=== PATIENT | female | born 1975 | race Caucasian/White ===

== ENCOUNTER 2017-07-20 18:51 | Emergency (ER) | payer BC, SELFPAY ==
[2017-07-20 20:17] VITALS: BP 150/104; PULSE 82; RESP 18; TEMP 36.4; O2SAT 100; BMI 32.9
--- NOTE | 2017-07-20 20:24 | XR_ITS ---
XR hand LT min 3V HISTORY: Posttraumatic pain ITS.REASON: PAIN ORDERING PHYSICIAN: Wojciech Garcia PATIENT AGE: 41 years COMPARISON: None FINDINGS: No obvious fracture or dislocation. No lytic or blastic change. There is normal mineralization.. The joint spaces are well-preserved. No significant degenerative/arthritic changes. No erosive changes evident.. Sesamoid bones are present at the first metacarpal phalangeal junction. An additional calcific density is present along the proximal and ulnar aspect of the head of the first metacarpal. Although this may be related to soft tissue calcification such as a sesamoid, one cannot exclude possibility avulsion fracture. Please correlate as to patient's area of pain and tenderness. Otherwise negative. IMPRESSION: Small calcific density at the distal shaft of the first metacarpal. Differential diagnosis includes soft tissue calcification versus small avulsion injury
--- NOTE | 2017-07-20 20:52 | HMH.EDUTC ---
[facility] [place] Impression: Pain of left thumb Disposition: Home, Self-Care Condition on Discharge: Good Instructions: How To Perform RICE (Rest, Ice, Compress, Elevate), DI for Wrist Fracture Additional Instructions: * Rest * ice 15-20 mins 3-4 times a day * brace for support and swelling unless in shower until final xray report rcvd. Be sure not too tight but not too loose either. * Elevate as discussed as much as possible to help reduce swelling and therefore, pain * Ibuprofen every 6 hours as needed for pain and inflammation. If you need something more, you can take tylenol every 4 hours as needed as long as your primary care provider has told you it is ok to take both. * FU with [facility] or primary care tomorrow for final xray result. If fractured or pain persist, you will need to see ortho. Your location of pain is concerning and needs additional follow up. Referrals: Doron Fine MD [Primary Care Provider] - (tomorrow for final xray result) Time of Disposition: 21:43 Medical Decision Making Vital Signs: 07/20/17 20:17 Temperature 97.5 F L Temperature Source Temporal Artery Scan Pulse Rate [Right] 82 Respiratory Rate 18 Blood Pressure [Right Arm] 150/104 Blood Pressure Mean [Right Arm] 119 Blood Pressure Source [Right Arm] Automatic Cuff Blood Pressure Position [Right Arm] Sitting 02 Sat by Pulse Oximetry 100 Oxygen Delivery Method Room Air Orders (Tests/Meds): ORDERS Category Date Time Status XR hand LT min 3V Stat Exams 07/20/17 20:24 Taken - Radiology Data #1 Image(s): Hand (left) Image Reviewed: Yes I reviewed the patient's radiology image, Yes I reviewed the patient's radiology image w/the ED provider My concern was for scaphoid fracture. Rvwd w/ VIANEY Weathers MD. No acute finding. - Malik Inquiry Pt receiving controlled substance: No [facility] [place] - General Stated complaint: AO [id number] @1900 INJURED LEFT THUMB Time Seen by Provider: 07/20/17 20:50 Mode of Arrival: Ambulatory Source of Information: Patient Limitations: No Limitations Description of Symptoms (Recalled from Triage Doc. by RN): INJURED LEFT HAND 2 WKS AGO, STATES REINJURED IT TODAY HEENT Symptoms (Recalled from RN notes): No Resp Symptoms (Recalled from RN notes): No Skin Symptoms (Recalled from RN notes): No MS Symptoms (Recalled from RN notes): Yes Functional Status (Recalled from RN notes): N - History of Present Illness Provider Complaint: c/o left thumb pain. Reports fell and caught self with left hand 2 weeks ago. Pain in thumb at that time but seemed to be improving. Hit hand on edge of table today and pain worse again. Denies N/T. Worse with movement of thumb. - Related Data Home Medications Medication Instructions Recorded Confirmed Oxycodone HCl [Roxicodone 5mg tab] 5 mg PO BID 07/20/17 07/20/17 Allergies Allergy/AdvReac Type Severity Reaction Status Date / Time No Known Drug Allergies Allergy Unknown Verified 07/20/17 20:22 - Worker's Comp Is this a Worker's Comp case?: No [facility] History I have reviewed the patient's past medical history: Yes (denies) Medical History: Denies:: Diabetes Mellitus Type 1, Diabetes Mellitus Type 2, Hypertension Laterality Cases: Right: Total Knee Replacement - *Social History Smoking Status: Never smoker Alcohol Intake: never - Psychiatric History Expresses thoughts of harming self/others: None Suicide Plan Description: No Plan ROS Obtained: Yes Systems reviewed as appropriate & no additional complaints - Constitutional Denies fever(s) - Musculoskeletal Reports other (see hpi) - Integumentary/Breasts Denies change in skin color, Denies lesions, Denies rash - Neurologic Reports other (see hpi) Physical Exam - General General appearance: alert, in no apparent distress - Respiratory Respiratory exam: Absent: respiratory distress - Cardiovascular Cardiovascular exam: Present: regular rate - Expanded Cardiovascular
== END 2017-07-20 21:47 | disposition home or self-care (01) ==
PROVIDERS: Emergency Provider Nurse Practitioner Family; PCP Family Medicine
DX: M79.642 Pain in left hand (principal); W01.0XXA Fall on same level from slipping, tripping and stumbling without subsequent striking against object, initial encounter
CPT/HCPCS: 73130; 99202; 99281; 99291

== ENCOUNTER → 2018-09-28 08:53 | Outpatient (CLI) | payer BC, SELFPAY ==
--- NOTE | 2018-09-28 08:59 | FL_ITS ---
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 The esophagus has an unremarkable appearance. Stomach and duodenum are also unremarkable. No ulcer or mass is evident. No evidence of hiatal hernia. Small bowel has an unremarkable appearance. No obstructing lesions masses or mucosal abnormalities. The terminal ileum is within normal limits. FLUOROSCOPY TIME : 2 minutes and 47 seconds. IMPRESSION: Negative upper GI Negative small bowel follow-through
--- NOTE | 2018-09-28 10:00 | US_ITS ---
US thyroid HISTORY: ITS.REASON: THYROMEGLY ORDERING PHYSICIAN: Renita Lucero MD PATIENT AGE: 42 years Comparison: None FINDINGS: The right lobe is 4.2 x 1.2 x 1.6 cm. There is a 3 x 2 mm hypoechoic nodule in the upper pole well-circumscribed. A 3 mm complex cystic lesion is present in the mid polar region. The left lobe is 4.3 x 1.3 x 1.6 cm. There is a 7 x 5 mm mixed nodule in the upper pole somewhat ill-defined. IMPRESSION: 1. Mildly enlarged thyroid gland. 2. Nonspecific bilateral nodules with low level of suspicion for malignancy. Consider 6 month follow-up to confirm stability
== END ==
PROVIDERS: PCP Family Medicine; Visit Provider Family Medicine
DX: R13.10 Dysphagia, unspecified (principal); E01.0 Iodine-deficiency related diffuse (endemic) goiter
CPT/HCPCS: 74245; 76536

== ENCOUNTER → 2018-10-11 10:02 | Outpatient (CLI) | payer BC, SELFPAY ==
--- NOTE | 2018-10-11 10:09 | FL_ITS ---
[place] barium swallow Ordering Physician: Trell Romero MD Patient Age: 42 years: Female HISTORY: ITS.REASON: dyspahgia Dysphagia superiorly at level oropharynx hypopharynx. hialitosis. Hoarseness. TECHNIQUE: Swallowing of barium observed in the lateral and into projection with the patient upright as well as subsequent right lateral decubitus view observed for reflux. Imaging performed by Dr. Fernandez with total fluoroscopy time 1.5 minute COMPARISON :The patient had a recent UGI which included views lower esophagus from 09/28/2018 FINDINGS Normal swallowing mechanism and reflex.. The hypopharynx appears satisfactory. No penetration or aspiration. There are some mild anterior marginal osteophytes most evident C6/7 and to lesser degree C5/6 with slightly indenting and impinge upon the posterior aspect of cervical esophagus and can contribute to some minor symptoms of dysphagia however the patient's symptoms seem to be superior to this. Thus these are of significance. There are some mild degenerative disc space narrowing at C 6/7 noted. Good strength and coordination of the swallowing reflex through the hypopharynx as well as through the cervical and thoracic esophagus. Symmetrical appearance of vallecula and piriform sinuses. No Zenker's diverticulum evident. No cervical esophagus web or lesion. The thoracic esophagus appears normal. Normal peristalsis. Smooth appearance. No hiatal hernia evident. No reflux or hiatal hernia demonstrated with Valsalva maneuver with the patient right decubitus position.. No evidence GE reflux evident-even with using sip test utilized IMPRESSION: 1. No significant findings to account for the patient's symptoms ... Today's Study basically within normal limits ... Normal pattern of swallowing at hypopharynx and cervical esophagus. No Zenker's diverticulum. No esophageal web nor cleft ... Only note minor anterior marginal osteophytes at C6/7 & lesser degree C5/6 which is very slightly indents the posterior aspect of the esophagus. Although these can yield this stage of symptoms these are minimal and I doubt correlate with the patient's current symptoms ... Thoracic esophagus unremarkable. No hiatal hernia no reflux evident 3.
== END ==
PROVIDERS: PCP Family Medicine; Visit Provider Otolaryngology
DX: R13.10 Dysphagia, unspecified (principal)
CPT/HCPCS: 74220

== ENCOUNTER → 2019-11-22 10:32 | Outpatient (POV) | payer BC, SELFPAY ==
[2019-11-22 10:58] VITALS: BP 150/98; PULSE 73; RESP 20; TEMP 36.8; O2SAT 98; BMI 33.4
--- NOTE | 2019-11-22 12:16 | HMH.PMCON ---
Assessment and Plan (1) Neck pain Current visit: Yes Status: Chronic Category: Medical Code(s): M54.2 - Cervicalgia (2) Degenerative joint disease of cervical spine Current visit: Yes Status: Chronic Qualifiers: Spinal osteoarthritis complication: with radiculopathy Qualified Code(s): M47.22 - Other spondylosis with radiculopathy, cervical region Category: Medical Code(s): M47.812 - Spondylosis without myelopathy or radiculopathy, cervical region - Assessment and plan all Dx Assessment and Plan for all problems:: We will order an MRI of her cervical spine to help determine pathology and plan of care. I will follow-up with her after this reassess her symptoms at that time she has been instructed to call the office if she has any issues prior to her next appointment. Dr. Lopez has reviewed this note and agrees with this plan of care. This note was dictated using voice recognition software and may contain errors or omissions HPI - Data of Consult Consult date: 11/22/19 Requesting Physician: Lori Andrade APRN Primary Care Provider: VANESSA Horta - Consult Narrative Reason for consult: Neck pain and knee pain History of present illness: Ms. Salmon is a 44 year old female who presents today for consultation in regards to her neck pain she is had it for quite some time however in the last 3 weeks is gotten much worse. She is having radiation down into her bilateral arms. She has numbness and tingling in her bilateral fingers. Patient does not have any MRI of her neck. Patient states that all movement increases pain will rest decreases her pain. She is on anti-inflammatories. Patient has failed medication changes along with stretching and therapy. CC: Lori Andrade APRN [facility] History I have reviewed the patient's past medical history: Yes Medical History: Denies:: Cancer, Diabetes Mellitus Type 1, Diabetes Mellitus Type 2, Hypertension, MRSA *Have you ever received a pneumonia vaccine?: No *Have you received a flu vaccine this season?: No Other Medical History: Reports: Arthritis Laterality Cases: Left: Arthroscopy Knee, Partial Knee Replacement Amputation: No Fractures: No - *Social History Smoking Status: Former smoker Alcohol Intake: never *Occupational Status:: employed Housing: house Household Members: other *Travel in the last 8 weeks: None Family Hx:: Other Review of Systems - Review of Systems ROS General: no recent weight change, no fever, no sleep disturbances Respiratory: no cough, no shortness of air, no recurring pulmonary infections Cardiovascular/Peripheral Vascular: No chest pain, No palpitations, no edema, no shortness of breath. Gastrointestinal: no new onset incontinence, normal bowel movements reported Genitourinary: no new onset incontinence Musculoskeletal: Neck pain arm pain Psychiatric: normal mood/ affect Neurological: [denies new onset weakness in extremities], [denies new onset balance issues] Meds Home Medications Medication Instructions Recorded Confirmed Type celecoxib 200 mg capsule 1 tab PO DAILY 30 Days #30 cap 10/07/18 11/22/19 History omeprazole 40 mg capsule,delayed 1 tab PO DAILY 30 Days #30 cap 10/07/18 11/22/19 History release Allergies Allergy/AdvReac Type Severity Reaction Status Date / Time No Known Drug Allergies Allergy Unknown Verified 11/22/19 10:56 Objective Vital signs: Temp Pulse Resp BP Pulse Ox 98.3 F 73 20 150/98 H 98 11/22/19 10:58 11/22/19 10:58 11/22/19 10:58 11/22/19 10:58 11/22/19 10:58 Narrative: Physical Exam General: Alert and oriented x3, no acute distress, pleasant and cooperative, [on room air] Lungs: Resps E/U, Symmetrical chest expansion, Eyes: PERRL Musculoskeletal: Flexion and extension of cervical spine somewhat guarded secondary to pain, deep tendon reflexes normal, strength in upper and lower extremities [5/5], slightly antalg
== END ==
PROVIDERS: PCP Physician Assistant; Visit Provider Clinical Nurse Specialist Family Health
DX: M47.22 Other spondylosis with radiculopathy, cervical region (principal)
CPT/HCPCS: 99202

== ENCOUNTER → 2019-11-25 14:43 | Outpatient (CLI) | payer BC, SELFPAY ==
--- NOTE | 2019-11-25 14:52 | MR_ITS ---
PROCEDURE: MR CERVICAL SPINE WO CON CLINICAL INDICATION: NECK PAIN Cough COMPARISON: No exams were available for comparison TECHNIQUE: Standard multiplanar multiecho sequences are performed without contrast. 3-D MIP and myelographic images are also rendered and reviewed FINDINGS: There is straightening of the cervical lordosis. This is nonspecific and may be due to patient positioning or muscle spasm. The craniocervical junction has an unremarkable appearance. C2-C3: Unremarkable. C3-C4: There is a small right paracentral/foraminal disc protrusion with mild right lateral recess narrowing with mild degenerative disc disease C4-C5: Degenerative disc disease with bulging disc and small right and left paracentral disc osteophyte complexes with bilateral lateral recess and foraminal narrowing C5-C6: Degenerative disc disease with mild bulging disc C6-C7: Degenerate disc disease with mild bulging disc C7-T1: Unremarkable. The sagittal images suggest a small right paracentral disc protrusions at T2-T3 and T3-T4 not imaged in the axial plane. IMPRESSION: 1. Mild multilevel cervical spondylosis with reversal of the cervical lordosis. Please see above for detailed description at each level. 2. C3-C4: There is a small right paracentral/foraminal disc protrusion with mild right lateral recess narrowing with mild degenerative disc disease 3. C4-C5: Degenerative disc disease with bulging disc and small right and left paracentral disc osteophyte complexes with bilateral lateral recess and foraminal narrowing Dictated by: Jeffery Hanson MD 11/26/2019 06:59 Electronically signed by Jeffery Hanson MD in [place] 11/26/2019 06:59
== END ==
PROVIDERS: PCP Physician Assistant; Visit Provider Clinical Nurse Specialist Family Health
DX: M54.2 Cervicalgia (principal)
CPT/HCPCS: 72141; 76376

== ENCOUNTER → 2020-01-30 11:56 | Outpatient (POV) | payer BC, SELFPAY ==
[2020-01-30 12:48] VITALS: BP 132/88; PULSE 85; RESP 18; O2SAT 98; BMI 33.6
--- NOTE | 2020-01-30 14:10 | HMH.PAINSOAP ---
[facility] Pain Management SOAP Note Subjective:: Patient is a 44-year-old white female who presents today for follow-up after MRI. She has been treated for neck pain with cervical radiculopathy symptoms. Patient is also complaining of multiple areas of pain today. She is complaining of low back pain with radiation into her bilateral lower extremities. He does say her pain is worse into her right side. She also complains of numbness and tingling into both legs. She says it is worse in the a.m. when she initially wakes. She is complaining of left elbow pain. Patient I discussed that we need to focus on specific areas of pain. She is reporting to have a history of fibromyalgia. She says that she hurts all over. Patient says that she does work a full-time job and has chronic pain throughout her entire body. At this time, she says her pain is worse in her low back area radiating into bilateral hips and her right groin. Patient says she has never had any type of injective therapy. She would like to discuss possible injections. Review of Systems General: No recent weight changes, no fever, no sleep disturbances Respiratory: No cough, no shortness of air, no recurring pulmonary infections Cardiovascular/peripheral vascular: No chest pain, no palpitations, no edema, no shortness of breath Gastrointestinal: No new onset incontinence, normal bowel movements reported Genitourinary: No new onset incontinence Musculoskeletal: Neck pain, bilateral arm pain with numbness and tingling, low back pain with radiation into bilateral hips and right groin. Psychiatric: Normal mood/affect Neurological: [Denies weakness in extremities], [denies balance issues] Objective:: Physical exam General: Alert and oriented x3, no acute distress, pleasant and cooperative, [on room air] Lungs: Respirations even and unlabored, symmetrical chest expansion Eyes: PERRL Musculoskeletal: Flexion and extension of cervical and lumbar spine somewhat guarded secondary to pain, deep tendon reflexes normal, strength in upper and lower extremities [5/5], [abnormal gait noted], positive SI compression test, positive Ledy's test, positive distraction test Neurological: Speech clear, 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 She was very vague in her symptoms today and was unable to focus on any specific area of pain. For now, we will schedule the patient for bilateral SI joint injections. She does have tenderness noted over bilateral SI joints as well as into her right hip and right groin. We will see her back in the clinic after her injection to reassess her symptoms. If she does not get relief, she may need to undergo a lumbar. Patient is reporting her pain to be worse in her low back area than in her neck at this time. The patient and I specifically discussed risk factors for COVID19. These risks include, but are not limited to age greater than 60, heart or lung disease, diabetes, immunosuppression, and travel. We also discussed NSAIDs may worsen COVID19 infection or symptoms. Patient should not use NSAIDs to treat COVID19 signs or symptoms. Patient was also informed that any type of corticosteroid of any form (oral or injection) will decrease the patient's immune system response and may increase the likelihood of COVID19 infection and symptoms. [facility] History I have reviewed the patient's past medical history: Yes Medical History: Denies:: Cancer, Diabetes Mellitus Type 1, Diabetes Mellitus Type 2, Hypertension, MRSA *Have you ever received a pneumonia vaccine?: Yes *Have you received a flu vaccine this season?: Yes Other Medical History: Reports: Arthritis Laterality Cases: Left: Arthroscopy Knee Amputation: No Fractures: No - *Social History Smoking Status: Former smoker Alcohol Intake: never *O
== END ==
PROVIDERS: PCP Family Medicine; Visit Provider Clinical Nurse Specialist Family Health
DX: M50.10 Cervical disc disorder with radiculopathy, unspecified cervical region (principal); M46.1 Sacroiliitis, not elsewhere classified
CPT/HCPCS: 99212

== ENCOUNTER 2020-02-13 09:04 | Outpatient (RCR) | payer BC, SELFPAY ==
--- NOTE | 2020-02-13 11:25 | HMH.PTOPEV ---
PT Outpatient Evaluation Rehab PT Outpatient Evaluation Start: 02/13/20 09:12 Freq: Status: Active Protocol: Document 02/13/20 11:13 SHERMAN (Rec: 02/13/20 11:25 PHORNE [id number]) Electronically Signed By Rodney Odonnell, PT 02/13/20 11:13 Outpatient Therapy Subjective History Subjective History Pt is 44 yowf who presents with c/o pain in neck, B arms, low back, and B LE x ~ 1 yr with insidious onset of symptoms. She reports pain is constant and unchanging, worse with activity, and aching to shooting in nature. 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 She had MRI performed which shows C3/4-C6/ 7 DDD with C4/5 disc bulge. She reports seeing a Layer Out and having multiple tests performed all negative. She has been diagnosed with fibromyalgia for several years. She has PMH of L partial knee arthroplasty. Chief Complaint Pain,Stiff Symptom Type Ache,Sharp,Tingling,Shooting Symptoms Relieved By Rest/Positioning,Heat, Prescription Meds Symptoms Aggravated By Physical Activity Prior Functional Limitations Sleeping,Recreation Activity, Walking Current Functional Limitations Sleeping,Recreation Activity, Walking Symptom Description Constant and Continuous Level of pain today (0-10) 5 Pain scale - at its worst (0-10) 10 Cervical Eval Palpation Cervical Muscles R Cervical Paraspinal,L Cervical Paraspinal,R Upper Trapezius,L Upper Trapezius Cervical/Thoracic Palpation Findings Tenderness Posture Head/C-Spine Posture Sitting Position Neutral Position Head/C-Spine Posture Standing Position Neutral Position Flexibility Deficits Upper Trapezius Muscle Length (R) Mild Tightness,(L) Mild Tightness Levaetor Scapulae Muscle Length (R) Mild Tightness,(L) Mild Tightness Passive Joint Mobility Cervical PIVM WNL: R OA L OA R AA L AA R C2/3 L C2/3
== END 2020-02-13 09:05 | disposition home or self-care (01) ==
LOC: PT 09:04
PROVIDERS: PCP Family Medicine; Visit Provider Clinical Nurse Specialist Family Health
DX: M54.2 Cervicalgia (principal); M54.5 Low back pain
CPT/HCPCS: 97110; 97163

== ENCOUNTER 2020-02-13 15:25 | Day surgery (SDC) | payer BC, SELFPAY ==
[2020-02-13 15:37] VITALS: BP 138/87; PULSE 79; RESP 18; TEMP 36.4; O2SAT 99; BMI 35.6
[2020-02-13 15:47] VITALS: BP 132/88; PULSE 85; RESP 18
[2020-02-13 15:48] VITALS: BP 132/88; PULSE 82; RESP 18; O2SAT 99
--- NOTE | 2020-02-13 15:51 | HMH.PMPROC ---
- Procedure Date: 02/13/20 Time: 15:51 Anesthesiologist:: Lori Andrade APRN Complications:: None Pre-procedure Diagnosis:: Sacroiliitis Post-procedure Diagnosis:: Same Indications for Procedure:: Patient is a pleasant 44-year-old white female presents today for bilateral SI joint injections. Patient has a positive Flori test SI joint compression test and Ledy's test bilaterally. She is rating her pain today a 5 out of 10. Patient also wants to discuss Lyrica. She is on gabapentin however she states that she would like to try Lyrica. We will start her on 75 mg 1 p.o. twice daily. Malik reviewed and appropriate. 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 Patient was taken to the procedure room. Patient was placed prone on the procedure table. The left hip was prepped using ChloraPrep as a cleansing solution. The skin and subcutaneous tissues were anesthetized using lidocaine. Using fluoroscopic guidance I placed a 22-gauge spinal needle into the inferior aspect of the left SI joint. After this I injected 5 mL bupivacaine 0.25% and Depo-Medrol 40 mg into the left SI joint. The patient tolerated the procedure well with no complication. It was then repeated on the right side Plan and Disposition:: Follow-up with the patient 2 to 3 weeks reassess her symptoms at that time we will start her on Lyrica 75 mg 1 p.o. twice daily she knows that she needs to be off of her gabapentin if she is only taking this. She has been instructed to call the office if she has any issues prior to her next appointment. Dr. Lopez has reviewed this note and agrees with this plan of care. This note was dictated using voice recognition software and may contain errors or omissions
[2020-02-13 15:58] VITALS: BP 135/89; PULSE 79; RESP 20; O2SAT 99
== END 2020-02-13 16:00 | disposition home or self-care (01) ==
LOC: SC.PAINP 15:26
PROVIDERS: PCP Family Medicine; Visit Provider Clinical Nurse Specialist Family Health
DX: M46.1 Sacroiliitis, not elsewhere classified (principal); Z87.19 Personal history of other diseases of the digestive system; Z87.39 Personal history of other diseases of the musculoskeletal system and connective tissue; Z79.899 Other long term (current) drug therapy
CPT/HCPCS: 27096; G0260; J1030; Q9966

== ENCOUNTER 2020-03-05 16:03 | Emergency (ER) | payer BC, SELFPAY ==
[2020-03-05 16:23] VITALS: BP 128/73; PULSE 85; RESP 20; TEMP 36.7; O2SAT 98; BMI 35.6
[2020-03-05 16:24] VITALS: BP 124/74; PULSE 80; RESP 19; TEMP 36.7; O2SAT 99; BMI 35.6
--- NOTE | 2020-03-05 16:43 | HMH.EDUTC ---
[facility] Disposition Clinical Impression: Sciatica Qualifiers: Laterality: right Qualified Code(s): M54.31 - Sciatica, right side Right knee pain Qualifiers: Chronicity: acute Qualified Code(s): M25.561 - Pain in right knee Disposition: Home, Self-Care Condition on Discharge: Good Instructions: DI for Back Pain With Sciatica, DI for Knee Pain Additional Instructions: Go home and rest. It would be best if you rested tomorrow too. No heavy lifting. No twisting. Take the oral medications as directed. The muscle relaxer (robaxin) will make you drowsy, so don't drive or operate heavy machinery after taking it. Don't start the oral steroids (medrol dose pack) until tomorrow, since you had the shots in here today. Follow up with your regular doctor. GO TO THE ER FOR ANY WORSENING SYMPTOMS OR CONCERN, ESPECIALLY BOWEL OR BLADDER ISSUES, SADDLE AREA NUMBNESS, FEVER, ETC Prescriptions: methylPREDNISolone [Medrol] 4 mg PO DIRECTED 6 Days #21 tab.ds.pk Transmission Status: Received by [facility] Methocarbamol [Robaxin 500mg Tab] 500 mg PO BIDP PRN #30 tab PRN Reason: Muscle Spasm Transmission Status: Received by [facility] Referrals: Doron Fine MD [Primary Care Provider] - Forms: Work/School Release Time of Disposition: 17:04 Medical Decision Making - Medical Records Medical records reviewed: No: I reviewed the patient's medical records. - Malik Inquiry Pt receiving controlled substance: No Vital Signs: 03/05/20 16:23 03/05/20 16:24 03/05/20 17:08 Temperature 98.1 F 98.1 F 98.1 F Temperature Source Oral Oral Pulse Rate 85 Pulse Rate [Left Radial] 80 Pulse Rate [Right Brachial] 85 Respiratory Rate 20 19 20 Blood Pressure 128/73 Blood Pressure [Right Arm] 128/73 124/74 Blood Pressure Mean [Right Arm] 91 90 Blood Pressure Source [Right Arm] Automatic Cuff Automatic Cuff Blood Pressure Position [Right Arm] Sitting Sitting 02 Sat by Pulse Oximetry 98 99 Oxygen Delivery Method Room Air Room Air Orders (Tests/Meds): ED MEDICATIONS Discontinued Medications Generic Name Dose Route Start Last Admin Trade Name Freq PRN Reason Stop Dose Admin Methylprednisolone Sodium Succinate 125 mg 03/05/20 16:50 03/05/20 16:56 Solu-Medrol 125mg/2ml Vial IM 03/05/20 16:51 125 mg ONCE ONE Administration [facility] HPI - General Stated complaint: pain in knees Time Seen by Provider: 03/05/20 16:43 Mode of Arrival: Ambulatory Source of Information: Patient Limitations: No Limitations Description of Symptoms (Recalled from Triage Doc. by RN): c/o right hip pain that goes down to her feet. States that she see PM and was given SI a few weeks ago and her pain had improved but today she had to leave work because it was so painful. - History of Present Illness Provider Complaint: She c/o worsening right sided sciatica and right knee pain. She has a history of these issues, but for some unknown reason the pain has got worse over the past few days. - Related Data Home Medications Medication Instructions Recorded Confirmed celecoxib 200 mg capsule 1 tab PO DAILY 30 Days #30 cap 10/07/18 03/05/20 omeprazole 40 mg capsule,delayed 1 tab PO DAILY 30 Days #30 cap 10/07/18 03/05/20 release Duloxetine HCl 60 mg PO DAILY 02/13/20 03/05/20 Pregabalin [Lyrica 75mg Cap] 75 mg PO BID 03/05/20 03/05/20 Previous Rx's Medication Instructions Recorded Methocarbamol [Robaxin 500mg Tab] 500 mg PO BIDP PRN #30 tab 03/05/20 methylPREDNISolone [Medrol] 4 mg PO DIRECTED 6 Days #21 03/05/20 tab.ds.pk Allergies Allergy/AdvReac Type Severity Reaction Status Date / Time ibuprofen AdvReac Verified 03/05/20 16:35 - Worker's Comp Is this a Worker's Comp case?: No [facility] History - Hepatitis A Screen Drug use history?: No High risk sexual behaviors?: No History of sexually transmitted infection?: No Currently employed?: No Childcare worker?: N
[2020-03-05 17:08] VITALS: BP 128/73; PULSE 85; RESP 20; TEMP 36.7; O2SAT 98
== END 2020-03-05 17:10 | disposition home or self-care (01) ==
PROVIDERS: Emergency Provider Nurse Practitioner Family; PCP Family Medicine
DX: M54.31 Sciatica, right side (principal); M25.561 Pain in right knee; Z87.891 Personal history of nicotine dependence
CPT/HCPCS: 96372; 99201

== ENCOUNTER → 2020-04-05 09:44 | Outpatient (POV) | payer BC, SELFPAY ==
[2020-04-05 10:04] VITALS: BP 128/78; PULSE 71; RESP 18; O2SAT 98; BMI 35.4
--- NOTE | 2020-04-05 10:24 | HMH.PAINSOAP ---
[facility] Pain Management SOAP Note Subjective:: Patient is a 44-year-old white female who presents today for follow-up. Patient is complaining of severe right hip pain as well as right knee pain. She says that she has a torn meniscus. Patient says that she did undergo an SI injection on the left side that did give her relief, however, she says she got no relief on the right side. Patient is seeing an orthopedic surgeon in [place]. She says that she is scheduled to undergo injective therapy to her right knee before undergoing surgical intervention. Patient says that she is here today because her pain is severe. She does rate her pain an 8 out of 10. Patient says she works 12-hour shifts at and says she is unable to tolerate the pain. She is currently on Celebrex. She is asking for hydrocodone today. Review of Systems General: No recent weight changes, no fever, no sleep disturbances Respiratory: No cough, no shortness of air, no recurring pulmonary infections Cardiovascular/peripheral vascular: No chest pain, no palpitations, no edema, no shortness of breath Gastrointestinal: No new onset incontinence, normal bowel movements reported Genitourinary: No new onset incontinence Musculoskeletal: Right hip pain, right knee pain Psychiatric: Normal mood/affect Neurological: [Denies weakness in extremities], [denies balance issues] Objective:: Physical exam General: Alert and oriented x3, no acute distress, pleasant and cooperative, [on room air] Lungs: Respirations even and unlabored, symmetrical chest expansion Eyes: PERRL Musculoskeletal: Flexion and extension of lumbar spine somewhat guarded secondary to pain, deep tendon reflexes normal, strength in upper and lower extremities [5/5], [abnormal gait noted] Neurological: Speech clear, outpatient physical therapist equal, no gross sensory deficit Assessment:: Right hip pain, right knee pain Plan:: Patient understands that we will not be able to manage her long-term with oral medications since she is being treated for the same thing at the orthopedic surgeon's office. We can give her some medication until she is able to get in with her orthopedic surgeon. We will give her tramadol 50 mg 1 tablet p.o. 3 times daily for 5 days. We will also give her Flexeril which she has taken before at 5 mg 1 tablet p.o. 3 times daily for 5 days. We will not give the patient any further medication, as she is receiving injections in [place]. We will follow-up with the patient after she has seen her orthopedic surgeon in 2 weeks to reevaluate her pain. The patient and I specifically discussed risk factors for COVID19. These risks include, but are not limited to age greater than 60, heart or lung disease, diabetes, immunosuppression, and travel. We also discussed NSAIDs may worsen COVID19 infection or symptoms. Patient should not use NSAIDs to treat COVID19 signs or symptoms. Patient was also informed that any type of corticosteroid of any form (oral or injection) will decrease the patient's immune system response and may increase the likelihood of COVID19 infection [address] symptoms[address]. Lopez has reviewed this note and agrees with this plan of care. This note was dictated using voice recognition software and make contain errors or omissions. [facility] History I have reviewed the patient's past medical history: Yes Medical History: Denies:: Cancer, Diabetes Mellitus Type 1, Diabetes Mellitus Type 2, Hypertension, MRSA, Seizures *Have you ever received a pneumonia vaccine?: Yes *Have you received a flu vaccine this season?: Yes Other Medical History: Reports: Arthritis Laterality Cases: Left: Arthroscopy Knee Other Surgeries: Yes: No Previous Surgery Amputation: No Fractures: No - *Social History Smoking Status: Former smoker Alcohol Intake: never *Occupational Status:: other Housing: house Household Members: other *Travel in the last 8 weeks: None Family Hx:: Other
== END ==
PROVIDERS: PCP Family Medicine; Visit Provider Clinical Nurse Specialist Family Health
DX: M25.551 Pain in right hip (principal); M25.561 Pain in right knee
CPT/HCPCS: 99212

== ENCOUNTER 2020-05-01 16:48 | Emergency (ER) | payer BC, SELFPAY ==
[2020-05-01 16:49] VITALS: BP 143/103; PULSE 89; RESP 14; O2SAT 98; BMI 35.4
--- NOTE | 2020-05-01 17:11 | XR_ITS ---
PROCEDURE: XR KNEE RT 3V CLINICAL INDICATION: knee pain, no injury COMPARISON: CR [id number] KNEE-3 VIEWS-LT from 05/15/2015 FINDINGS: No fracture or dislocation. No lytic or blastic change. There is normal mineralization. There are mild osteoarthritic changes involving all 3 compartments. Increased density is present in the suprapatellar region consistent with knee joint effusion. Other findings:Small calcific density is present medial to the medial joint space IMPRESSION: Osteoarthritis with knee joint effusion Dictated by: Jeffery Hanson MD 05/02/2020 05:32 Jeffery Hanson MD in [place] 05/02/2020 05:32
--- NOTE | 2020-05-01 17:42 | HMH.EDUTC ---
[facility] [place] Dis[place] Clinical Impression: Right knee pain Qualifiers: Chronicity: acute Qualified Code(s): M25.561 - Pain in right knee Disposition: Home, Self-Care Condition on Discharge: Good Instructions: How to Use Crutches, DI for Knee Pain, How to Use a Knee Immobilizer Additional Instructions: Rest the extremity, Elevate the extremity as tolerated while you are resting. Use the crutches and Follow up with your orthopedic doctor. Follow up with your regular doctor. GO TO THE ER FOR ANY WORSENING SYMPTOMS Prescriptions: methylPREDNISolone [Medrol] 4 mg PO DIRECTED 6 Days #21 tab.ds.pk Transmission Status: Received by [facility] Referrals: Doron Fine MD [Primary Care Provider] - Forms: Work/School Release Time of Disposition: 18:04 Medical Decision Making - Medical Records Medical records reviewed: No: I reviewed the patient's medical records. - Malik Inquiry Pt receiving controlled substance: No Vital Signs: 05/01/20 16:49 05/01/20 18:21 Temperature 0 F L Pulse Rate 89 Pulse Rate [Left Radial] 89 Respiratory Rate 14 14 Blood Pressure 143/101 H Blood Pressure [Right Arm] 143/103 H Blood Pressure Mean [Right Arm] 116 Blood Pressure Source Automatic Cuff Blood Pressure Source [Right Arm] Automatic Cuff Blood Pressure Position Sitting Blood Pressure Position [Right Arm] Sitting 02 Sat by Pulse Oximetry 98 Oxygen Delivery Method Room Air Room Air Orders (Tests/Meds): ORDERS Category Date Time Status XR knee RT 3V Stat Exams 05/01/20 17:11 Taken - Radiology Data #1 Image(s): Knee Image Reviewed: Yes I reviewed the patient's radiology image Preliminary Findings: No Fracture Seen [facility] [place] HPI - General Stated complaint: Knee pain Time Seen by Provider: 05/01/20 17:42 Mode of Arrival: Ambulatory Source of Information: Patient Limitations: No Limitations Description of Symptoms (Recalled from Triage Doc. by RN): c/o right knee and is scheduled for surgery in Nov but has been unable to go to work the last 2 days due to the pain HEENT Symptoms (Recalled from RN notes): No Resp Symptoms (Recalled from RN notes): No Skin Symptoms (Recalled from RN notes): No MS Symptoms (Recalled from RN notes): Yes Functional Status (Recalled from RN notes): wnl - History of Present Illness Provider Complaint: She c/o worsening right knee pain. She has a history of right knee pain. She is followed by Dr. Mulligan in [facility] for this. She states that over the past 2 days her knee pain has worsened. She has an appointment with her ortho next week. - Related Data Home Medications Medication Instructions Recorded Confirmed celecoxib 200 mg capsule 1 tab PO DAILY 30 Days #30 cap 10/07/18 03/05/20 omeprazole 40 mg capsule,delayed 1 tab PO DAILY 30 Days #30 cap 10/07/18 03/05/20 release Duloxetine HCl 60 mg PO DAILY 02/13/20 03/05/20 Pregabalin [Lyrica 75mg Cap] 75 mg PO BID 03/05/20 03/05/20 Previous Rx's Medication Instructions Recorded Methocarbamol [Robaxin 500mg Tab] 500 mg PO BIDP PRN #30 tab 03/05/20 methylPREDNISolone [Medrol] 4 mg PO DIRECTED 6 Days #21 03/05/20 tab.ds.pk methylPREDNISolone [Medrol] 4 mg PO DIRECTED 6 Days #21 05/01/20 tab.ds.pk Allergies Allergy/AdvReac Type Severity Reaction Status Date / Time ibuprofen AdvReac Verified 03/05/20 16:35 - Worker's Comp Is this a Worker's Comp case?: No [facility] History - Hepatitis A Screen Drug use history?: No High risk sexual behaviors?: No History of sexually transmitted infection?: No Currently employed?: No Childcare worker?: No Do you have indoor plumbing?: Yes Do you have electricity?: Yes Attestation statement:: This patient has been screened for Hepatitis A risk factors. I have reviewed the patient's past medical history: Yes Medical History: Denies:: Cancer, Diabetes Mellitus Type 1, Diabetes Mellitus Type 2, Hypertension, MRSA, Seizures O
[2020-05-01 18:21] VITALS: BP 143/101; PULSE 89; RESP 14; TEMP -17.7; TEMP 0; O2SAT 98
== END 2020-05-01 18:23 | disposition home or self-care (01) ==
PROVIDERS: Emergency Provider Nurse Practitioner Family; PCP Family Medicine
DX: M25.561 Pain in right knee (principal); Z87.891 Personal history of nicotine dependence
CPT/HCPCS: 73562; 99201

== ENCOUNTER → 2020-08-16 15:32 | Outpatient (POV) | payer BC, SELFPAY ==
[2020-08-16 16:08] VITALS: BP 133/74; PULSE 71; RESP 18; TEMP 36.8; O2SAT 99; BMI 34.7
--- NOTE | 2020-08-16 16:51 | HMH.PAINSOAP ---
[facility] Pain Management SOAP Note Subjective:: Patient is a pleasant 44-year-old white female who presents today for follow-up. Patient has right SI joint pain. Patient has undergone SI joint injections in the past and had good relief with that up to 80% for over 3 months. Patient is interested in repeating this. Patient has a positive Flori test SI joint compression test Ledy's test and distraction test on the right side. Patient is also on Cymbalta, Lyrica, Celebrex. Patient states these medications are beneficial for her. [facility] #[id number] reviewed and appropriate. Patient would like to discuss increasing her Lyrica. ROS General: no recent weight change, no fever, no sleep disturbances Respiratory: no cough, no shortness of air, no recurring pulmonary infections Cardiovascular/Peripheral Vascular: No chest pain, No palpitations, no edema, no shortness of breath. Gastrointestinal: no new onset incontinence, normal bowel movements reported Genitourinary: no new onset incontinence Musculoskeletal: SI joint pain on the right side Psychiatric: normal mood/ affect Neurological: [denies new onset weakness in extremities], [denies new onset balance issues] Objective:: Physical Exam General: Alert and oriented x3, no acute distress, pleasant and cooperative, [on room air] Lungs: Resps E/U, Symmetrical chest expansion, Eyes: PERRL Musculoskeletal: Flexion and extension of lumbar spine somewhat guarded secondary to pain, deep tendon reflexes normal, strength in upper and lower extremities [5/5], [abnormal gait noted] Neurological: speech clear, delinquency counselor equal, no gross sensory deficits Assessment:: Sacroiliitis Plan:: We will set the patient up for right SI joint injection given the efficacy of this in the past I do believe it would benefit her will increase her Lyrica to 150 mg 1 p.o. twice daily. I will follow-up with her after her appointment reassess her symptoms at that time she has been instructed to call the office if she has any issues prior to her next appointment. Dr. Lopez has reviewed this note and agrees with this plan of care. This note was dictated using voice recognition software and may contain errors or omissions [facility] History I have reviewed the patient's past medical history: Yes Medical History: Denies:: Cancer, Diabetes Mellitus Type 1, Diabetes Mellitus Type 2, Hypertension, MRSA, Seizures *Have you ever received a pneumonia vaccine?: Yes *Have you received a flu vaccine this season?: Yes Other Medical History: Reports: Arthritis Laterality Cases: Left: Arthroscopy Knee Other Surgeries: Yes: No Previous Surgery Amputation: No Fractures: No - *Social History Smoking Status: Former smoker Alcohol Intake: never *Occupational Status:: other Housing: house Household Members: other *Travel in the last 8 weeks: None Family Hx:: Other
== END ==
PROVIDERS: PCP Family Medicine; Visit Provider Clinical Nurse Specialist Family Health
DX: M46.1 Sacroiliitis, not elsewhere classified (principal)
CPT/HCPCS: 99212; G0463

== ENCOUNTER 2020-10-18 16:00 | Outpatient (RCR) | payer BC, SELFPAY ==
--- NOTE | 2020-09-27 16:41 | HMH.PTOPEV ---
PT Outpatient Evaluation Rehab PT Outpatient Evaluation Start: 09/27/20 16:24 Freq: Status: Active Protocol: Document 09/27/20 16:26 TIPCLEMENT (Rec: 09/27/20 16:41 RAIN [id number]) Electronically Signed By Marcio Collier, PT 09/27/20 16:26 Outpatient Therapy Subjective History Subjective History Patient is a 44 year old female presenting to outpatient PT with reports of chronic R knee pain. Patient underwent R knee meniscectomy in 2017 and pain/stiffness has progressively gotten worse. Symptoms consistent with R knee OA and possible suprapatellar bursitis. No recent imaging to report indicates R knee OA and effusion. Comorbidities include fibromyalgia and OA. Chief Complaint Pain,Stiff,Weakness Symptom Type Burning Symptoms Relieved By Heat,Ice,Prescription Meds Prior Functional Limitations None Current Functional Limitations Housework,Sleeping,Standing, Sitting,Squatting,Recreation Activity,Walking,Stairs, Balance Symptom Description Constant but Variable Level of pain today (0-10) 2 Pain scale - at its best (0-10) 1 Pain scale - at its worst (0-10) 7 Hip/Knee Eval Gait Observation General Gait Pattern Observation Antalgic Gait,Decrease Weight Bear (R) Assistive Device Assistive Devices None / NA Palpation Tenderness right Knee Palpation Finding Tenderness Knee Palpation Overall Comment Medial joint line, suprapatellar bursa 3/4 MMT Hip Flexion Strength Grade 4 Good Hip Abduction Strength Grade 4 Good Hip Adduction Strength Grade 4 Good Hip Extension Strength Grade 4- Good- Hip External Rotation Strength Grade 3+ Fair+ Hip Internal Rotation Strength Grade 3+ Fair+ Knee Extension Strength Grade 4- Good- Knee Flexion Strength Grade 4- Good- ROM Hip ROM Reason Not Measured Within Functional Limits Knee Extension Active Range of Motion ( -5 degrees) Knee Extension Passive Range of Motion ( 0 degrees) Knee Flexion Active Range of Motion ( 122 degrees) Knee Flexion Passive Range of Motion ( 126 degrees) Special Tests Knee Anterior Kathie Test Negative Right Knee Pivot Shift Test Negative Right Knee Erika
== END 2020-10-18 16:05 | disposition home or self-care (01) ==
LOC: PT 16:00
PROVIDERS: PCP Family Medicine; Visit Provider Physician Assistant
DX: M25.561 Pain in right knee (principal)
CPT/HCPCS: 97010; 97014; 97033; 97110; 97163; G0283

== ENCOUNTER 2020-12-14 13:52 | Emergency (ER) | payer BC, SELFPAY ==
[2020-12-14 13:55] VITALS: BP 164/108; PULSE 73; RESP 20; TEMP 36.8; O2SAT 97; BMI 35.4
[2020-12-14 14:09] VITALS: BP 164/108; PULSE 73; RESP 20; TEMP 36.8; O2SAT 97
--- NOTE | 2020-12-14 14:10 | HMH.EDUTC ---
[facility] [place] Disposition Clinical Impression: Nausea Disposition: Home, Self-Care Condition on Discharge: Good Instructions: DI for Nausea -- Adult, Nausea and Vomiting-Adult Additional Instructions: Monitor temperature. Seek treatment if fever develops. Follow-up immediately if new or worse symptoms worsen or no noticeable improvement over 48 hours. Increase fluids such as water, Gatorade, Powerade, juice or Pedialyte with limited formula/dietary in children No food is okay as long as you are drinking. Once ready to eat start bland such as bananas, rice, applesauce, toast. Contagious until no diarrhea, vomiting, fever times 48 hours without medication Avoid antidiarrheals unless told otherwise. Best to let the virus run its course. Follow-up immediately for new or worsening symptoms or no noticeable improvement over the next 48 hours. Prescriptions: ondansetron HCL [Zofran 4mg Tab*] 4 mg PO TIDP PRN 3 Days #9 tab PRN Reason: Nausea Transmission Status: Pending to [id number] Referrals: Doron Fine MD [Primary Care Provider] - Time of Disposition: 14:18 Medical Decision Making - Malik Inquiry Pt receiving controlled substance: No Vital Signs: 12/14/20 13:55 Temperature 98.3 F Temperature Source Oral Pulse Rate [Right Brachial] 73 Respiratory Rate 20 Blood Pressure [Right Arm] 164/108 H Blood Pressure Mean [Right Arm] 126 Blood Pressure Source [Right Arm] Automatic Cuff Blood Pressure Position [Right Arm] Sitting 02 Sat by Pulse Oximetry 97 Oxygen Delivery Method Room Air [facility] [place] HPI - General Chief complaint: Urgent Treatment Center Stated complaint: stomach pain, nausea Time Seen by Provider: 12/14/20 14:10 Mode of Arrival: Ambulatory Source of Information: Patient Limitations: No Limitations Description of Symptoms (Recalled from Triage Doc. by RN): PATIENT C/O SEVERE EPIGASTRIC PAIN WITH NAUSEA SINCE THURSDAY. STATES SHE ATE RAW OYSTERS ON THURSDAY AND IS WORRIED SHE MAY HAVE FOOT POISONING. DENIES VOMITING, HAS HAD DIARRHEA X 2 HEENT Symptoms (Recalled from RN notes): No Resp Symptoms (Recalled from RN notes): No Skin Symptoms (Recalled from RN notes): No MS Symptoms (Recalled from RN notes): No Functional Status (Recalled from RN notes): WNL - History of Present Illness Provider Complaint: 45 yr old female presnets for epigastric pain,nausea and 2 stools since thursday. pt states last weekend she ate raw oysters and they tasted funny and now thinks she has food poisoning. pt states she has not vomited but did have vomit come into mouth but swollowed it. pt denies fever. pt states she had to miss work due to cramps and needs a note - Related Data Home Medications Medication Instructions Recorded Confirmed celecoxib 200 mg capsule 1 tab PO DAILY 30 Days #30 cap 10/07/18 03/05/20 omeprazole 40 mg capsule,delayed 1 tab PO DAILY 30 Days #30 cap 10/07/18 03/05/20 release Duloxetine HCl 60 mg PO DAILY 02/13/20 03/05/20 Pregabalin [Lyrica 75mg Cap] 75 mg PO BID 03/05/20 03/05/20 Previous Rx's Medication Instructions Recorded Methocarbamol [Robaxin 500mg Tab] 500 mg PO BIDP PRN #30 tab 03/05/20 methylPREDNISolone [Medrol] 4 mg PO DIRECTED 6 Days #21 03/05/20 tab.ds.pk methylPREDNISolone [Medrol] 4 mg PO DIRECTED 6 Days #21 05/01/20 tab.ds.pk Pregabalin [Lyrica 150mg Cap] 150 mg PO BID #60 cap 08/16/20 ondansetron HCL [Zofran 4mg Tab*] 4 mg PO TIDP PRN 3 Days #9 tab 12/14/20 Allergies Allergy/AdvReac Type Severity Reaction Status Date / Time ibuprofen AdvReac Verified 03/05/20 16:35 - Worker's Comp Is this a Worker's Comp case?: No [facility] History - Hepatitis A Screen Drug use history?: No High risk sexual behaviors?: No History of sexually transmitted infection?: No Currently employed?: No Childcare worker?: No Do you have indoor plumbing?: Yes Do you have electricity?: Yes Attestation statement:: This patient has been screened for Hepatitis A risk fa
== END 2020-12-14 14:34 | disposition home or self-care (01) ==
PROVIDERS: Emergency Provider Nurse Practitioner Family; PCP Family Medicine
DX: R11.0 Nausea (principal); R10.13 Epigastric pain; R19.7 Diarrhea, unspecified
CPT/HCPCS: 99202; G0463

== ENCOUNTER → 2021-03-04 15:37 | Outpatient (CLI) | payer BC, SELFPAY ==
--- NOTE | 2021-03-04 15:38 | US_ITS ---
PROCEDURE: US TRANSVAGINAL CLINICAL INDICATION: pelvic pain and heavy periods COMPARISON: No exams were available for comparison FINDINGS: UTERUS: 8cm x 6cmx 5cm with a combined endometrial thickness of 9.9mm LEFT OVARY: [id number] with a volume of 7.9ml. RIGHT OVARY: [id number] with a volume of 8.3ml. The uterus is retroverted with small nabothian cyst noted. There is a 1.4 cm area of heterogeneous echogenicity in the anterior body of the uterus suggesting a small fibroid. No dominant ovarian cyst. IMPRESSION: Retroverted uterus with small uterine fibroid Dictated by: Jeffery Hanson MD 03/04/2021 17:44 Jeffery Hanson MD in [place] 03/04/2021 17:44
== END ==
PROVIDERS: PCP Family Medicine; Visit Provider Nurse Practitioner Obstetrics & Gynecology
DX: R10.2 Pelvic and perineal pain (principal)
CPT/HCPCS: 76830

== ENCOUNTER → 2021-04-02 11:50 | Outpatient (CLI) | payer BC, SELFPAY | PROVIDERS: PCP Family Medicine; Visit Provider Nurse Practitioner | DX: Z20.822 Contact with and (suspected) exposure to COVID-19 (principal) | CPT/HCPCS: C9803; U0003; U0005 ==

== ENCOUNTER → 2021-04-05 17:35 | Outpatient (CLI) | payer BC, SELFPAY | PROVIDERS: PCP Family Medicine; Visit Provider Nurse Practitioner | DX: Z20.822 Contact with and (suspected) exposure to COVID-19 (principal) | CPT/HCPCS: C9803; U0003; U0005 ==

== ENCOUNTER → 2021-04-26 14:16 | Outpatient (CLI) | payer BC, SELFPAY ==
[2021-04-26 14:52] LABS: Basophils % 0.4 % (0.1-2.0); Eosinophils # 0.2 K/mm3 (0.0-0.4); Eosinophils % 4.6 % (0.1-12.0); Hematocrit 35.7 % (37.0-47.0); Hemoglobin 11.4 g/dL (12.2-16.2); Lymphocytes # 1.2 K/mm3 (0.7-4.5); Lymphocytes % 24.1 % (10-50); Mean Corpuscular HGB Conc 31.9 g/dL (31.8-35.4); Mean Corpuscular Hemoglobin 28.1 pg (27.0-31.2); Mean Corpuscular Volume 88.2 fl (81-99); Mean Platelet Volume 8.2 fl (7.4-10.4); Monocytes # 0.3 K/mm3 (0.1-1.0); Monocytes % 6.3 % (1.7-9.3); Neutrophils # 3.2 K/mm3 (1.8-7.8); Neutrophils % 64.6 % (37.0-80.0); Platelet Count 266 K/mm3 (142-424); Red Blood Count 4.04 M/mm3 (4.20-5.40); White Blood Count 4.9 K/mm3 (4.8-10.8)
[2021-04-26 15:21] LABS: Alanine Aminotransferase 25 U/L (12-78); Albumin Level 4.2 g/dl (3.5-5.0); Albumin/Globulin Ratio 1.3 (1.1-1.8); Alkaline Phosphatase 94 U/L (38-126); Anion Gap 11.1 mEq/L (5-15); Aspartate Amino Transferase 40 U/L (14-36); Bilirubin,Total 0.3 mg/dl (0.2-1.3); Blood Urea Nitrogen 17 mg/dl (7-17); Calcium 9.3 mg/dl (8.4-10.2); Carbon Dioxide 27 mmol/L (22.0-30.0); Chloride 106 mmol/L (98-107); Estimated Glomerular Filt Rate 133 ml/min (>60); GFR (African American) 161 ML/MIN (>60); Globulin 3.3 g/dL (1.3-3.2); Glucose 86 mg/dl (74-100); Potassium 4.1 mmoL/L (3.5-5.1); Sodium 140 mmol/L (136-145); Total Protein,Serum 7.5 g/dl (6.3-8.2)
[2021-04-26 15:27] LABS: C-Reactive Protein 6.6 mg/L (0-4)
[2021-04-26 15:37] LABS: 25-OH Vitamin D, Total 51.1 ng/mL (30-100)
[2021-04-26 16:08] LABS: Erythrocyte Sedimentation Rate 21 mm/hr (0-20)
[2021-04-28 09:08] LABS: RA Latex Turbid. <10.0 IU/mL (0.0-13.9)
[2021-04-29 22:05] LABS: Antinuclear Antibodies, IFA Positive (.)
[2021-04-30 01:07] LABS: Anti-Cyclic Citrullinated Pept 8 units (0-19)
== END ==
PROVIDERS: Visit Provider Physician Assistant
DX: R76.8 Other specified abnormal immunological findings in serum (principal); E66.9 Obesity, unspecified; Z68.36 Body mass index [BMI] 36.0-36.9, adult
CPT/HCPCS: 36415; 80053; 82306; 85025; 85651; 86038; 86140; 86200; 86431

== ENCOUNTER → 2021-05-01 12:47 | Outpatient (CLI) | payer BC, SELFPAY ==
[2021-05-01 12:52] LABS: Microscopic, Urine URINE MICROSCOPIC (MICROSCOPIC)
[2021-05-01 13:13] LABS: Appearance,Urine CLEAR (Clear); Bilirubin,Urine Negative (Negative); Blood, Urine 1+ (Negative); Color,Urine YELLOW (Yellow); Glucose,Urine (UA) Negative (Negative); Ketones,Urine Negative (Negative); Leukocyte Esterase,Urine Negative (Negative); Nitrate,Urine Negative (Negative); PH,Urine 5.5 (5.0-8.5); Protein,Urine Negative (Negative); Specific Gravity, Urine 1.015 (1.005-1.030); Urobilinogen,Urine 0.2 EU/dl (0.2)
[2021-05-01 13:32] LABS: Squamous Epithelial Cell,Urine Occasional #/hpf (0-5)
== END ==
PROVIDERS: Visit Provider Physician Assistant
DX: R76.8 Other specified abnormal immunological findings in serum (principal)
CPT/HCPCS: 81001

== ENCOUNTER → 2021-05-16 11:18 | Outpatient (CLI) | payer BC, SELFPAY ==
--- NOTE | 2021-05-16 11:31 | XR_ITS ---
PROCEDURE: XR CERVICAL SPINE W FLEX/EXT CLINICAL INDICATION: neck pain, lue numbness COMPARISON: No exams were available for comparison FINDINGS: There is normal alignment. There is slight reversal cervical lordosis at the C2-C3 level with straightening of the lordosis involving the remaining cervical spine. Multilevel degenerative disc disease is present from C2 to C7. There are small anterior osteophytes. Mild foraminal narrowing of the on the left at C3-C4 with moderate to severe foraminal narrowing on the right at C3-C4, C4-C5, and C5-C6. Flexion and extension views show no abnormal subluxation. No fracture or dislocation. No lytic or blastic change. No evidence of cervical rib IMPRESSION: Multilevel cervical spondylosis as detailed above. No abnormal subluxation in flexion or extension. Reversal cervical lordosis which could be due to patient positioning or muscle spasm. Dictated by: Jeffery Hanson MD 05/16/2021 12:13 Jeffery Hanson MD in [place] 05/16/2021 12:13
[2021-05-16 12:22] LABS: Creatine Kinase 78 U/L (30-135); Iron 42 ug/dL (37-170)
[2021-05-16 12:31] LABS: Total Iron Binding Capacity 402 ug/dL (265-497)
[2021-05-16 13:16] LABS: Thyroid Stimulating Hormone 1.11 uIU/mL (0.465-4.68)
[2021-05-16 13:21] LABS: Ferritin 9.99 ng/ml (6.24-137)
== END ==
PROVIDERS: Visit Provider Specialist
DX: M62.81 Muscle weakness (generalized) (principal); R20.0 Anesthesia of skin; R63.5 Abnormal weight gain; D64.9 Anemia, unspecified; E66.9 Obesity, unspecified; Z68.36 Body mass index [BMI] 36.0-36.9, adult
CPT/HCPCS: 36415; 72052; 82085; 82550; 82728; 83540; 83550; 84443

== ENCOUNTER → 2021-05-16 14:10 | Outpatient (POV) | payer BC, SELFPAY ==
[2021-05-16 14:26] VITALS: BP 147/94; PULSE 63; RESP 18; O2SAT 98; BMI 36.6
--- NOTE | 2021-05-16 14:42 | HMH.PAINSOAP ---
[facility] Pain Management SOAP Note Subjective:: Patient is a 45-year-old white female who presents today for follow-up. Patient has been seen and treated in our clinic for chronic bilateral sacroiliitis. She does undergo routine injective therapy to her bilateral SI joints and gets significant relief up to 5 to 6 months of relief at about 90 to 100%. Unfortunately, the patient reports her pain has returned to her bilateral low back area with radiation into bilateral buttock and hips. She does have pain with standing walking and improvement with sitting. She is having limitations at work due to the pain. She says that she does come home crying after standing for prolonged periods. She is also having severe neck pain with radicular pain into her arms and shoulders. She does have a history of fibromyalgia. We do manage the patient with Lyrica 150 mg 1 tablet p.o. twice daily. She is seeing Dr. Schulte who has sent the patient for an x-ray of her cervical spine as well as scheduled nerve conduction studies and MRI cervical spine. The patient would like to proceed with SI injections repeat in our clinic while awaiting MRI of her cervical spine. Patient has tried failed conservative therapies of physical therapy for more than 6 weeks in the past along with continued home stretching. She is also tried anti-inflammatories along with home stretching. She gets minimal relief. Ice and heat therapies have not been beneficial for the patient's pain. Review of Systems General: No recent weight changes, no fever, no sleep disturbances Respiratory: No cough, no shortness of air, no recurring pulmonary infections Cardiovascular/peripheral vascular: No chest pain, no palpitations, no edema, no shortness of breath Gastrointestinal: No new onset incontinence, normal bowel movements reported Genitourinary: No new onset incontinence Musculoskeletal: Neck pain with radiation into bilateral arms and shoulders, low back pain with radiation into bilateral buttock, hips and legs worse with standing walking. Improves with sitting. Psychiatric: [Normal mood/affect] Neurological: [Denies weakness in extremities], [denies balance issues] Objective:: Physical exam General: Alert and oriented x3, no acute distress, pleasant and cooperative Lungs: Respirations even and unlabored, symmetrical chest expansion Eyes: PERRL Musculoskeletal: Flexion and extension of lumbar [spine] somewhat guarded secondary to pain, [antalgic gait noted], positive Dayron's test, positive compression test, positive distraction test, positive Ledy's test Neurological: Speech clear, no gross sensory deficit Assessment:: Sacroiliitis bilateral, neck pain with cervical radiculopathy symptoms Plan:: Patient does have an MRI scheduled per Dr. Schulte for her cervical spine. She did have an x-ray that reports the patient to have degenerative disc disease with narrowing cervical spine. She is also scheduled for nerve conduction studies with Dr. Schulte. At this time, the patient is having low back pain with radiation into bilateral buttock hips and legs. The pain is improved with sitting and worsens with standing and walking. She is continue with home stretching and anti-inflammatories. Patient does have fibromyalgia and is managed with Lyrica 150 mg 1 tablet p.o. twice daily in our clinic. This does give the patient 60% relief of her fibromyalgia type pain. We will schedule her for bilateral SI joint injections for which she is got 90% relief for 5 to 6 months. She gets immediate relief following the injections. We will see the patient back after the injections for reevaluation of symptoms. Once the MRI is complete of her cervical spine we can proceed to treating her cervical spine pain. Risks and benefits of the medication have been explained in detail to the patient. If side effects do present with the medication, patient has been advised to stop the medication immediately and call
== END ==
PROVIDERS: Visit Provider Clinical Nurse Specialist Family Health
DX: M46.1 Sacroiliitis, not elsewhere classified (principal); M54.12 Radiculopathy, cervical region
CPT/HCPCS: 99212; G0463

== ENCOUNTER → 2021-05-24 15:13 | Outpatient (CLI) | payer BC, SELFPAY ==
--- NOTE | 2021-05-24 15:13 | MR_ITS ---
PROCEDURE INFORMATION: Exam: MR Cervical Spine Without Contrast Exam date and time: 05/24/2021 3:13 PM Age: 45 years old Clinical indication: Neck pain; Additional info: Neck pain, lue numbness. Neck pain lt arm numbness [id number]. No injury or trauma. Prior x-ray 05-16-21. Prior MR 11-25-19. TECHNIQUE: Imaging protocol: Multiplanar magnetic resonance images of the cervical spine without contrast. COMPARISON: MR CERVICAL SPINE WO CON 11/25/2019 3:01 PM FINDINGS: Alignment grossly normal. Signal intensity within the bone marrow normal. Spinal cord normal. Visualized portions of the brain in the posterior fossa is also normal. Straightening and reversal of the normal cervical lordosis. Degenerative disc disease C3-C4, C4-C5, C5-C6 and C6-C7 No marrow edema C2-C3: Central canal and neural foramina are widely patent. C3-C4: Broad-based annular disc bulge lateralizing to the right greater than left. Central canal is normal. Moderate narrowing of the right neural foramina and mild narrowing of the left neural foramina C4-C5: Disc and or osteophytic complex anteriorly mildly effaces the anterior aspect of the thecal sac. Disc, uncovertebral hypertrophic changes and facet arthropathy narrow the neural foramina severely so C5-C6: Disc and or osteophytic complex anteriorly mildly effaces the anterior aspect of the thecal sac. Disc, uncovertebral hypertrophic changes and facet arthropathy narrow the neural foramina moderately so right greater than left C6-C7: Broad-based annular disc bulge effaces the anterior aspect of the thecal sac mildly so. Central canal and right neural foramina are widely patent. Moderate narrowing of the left neural foramina C7-T1: Central canal and neural foramina are widely patent. IMPRESSION: Multilevel degenerative disc disease as described above.
== END ==
PROVIDERS: PCP Family Medicine; Visit Provider Specialist
DX: M54.2 Cervicalgia (principal); R20.0 Anesthesia of skin
CPT/HCPCS: 72141; 76376

== ENCOUNTER 2021-05-31 13:51 | Day surgery (SDC) | payer BC, SELFPAY ==
[2021-05-31 14:08] VITALS: BP 134/84; PULSE 78; RESP 18; TEMP 37; O2SAT 98; BMI 36.6
[2021-05-31 14:52] VITALS: BP 147/94; PULSE 71; RESP 18; O2SAT 97
[2021-05-31 14:54] VITALS: PULSE 71; RESP 18; O2SAT 98
--- NOTE | 2021-05-31 14:58 | HMH.PMPROC ---
- Procedure Date: 05/31/21 Time: 14:58 Anesthesiologist:: Mariama Kelly MD Complications:: None Pre-procedure Diagnosis:: Bilateral sacroiliitis, chronic low back pain, bilateral hip pain Post-procedure Diagnosis:: Same Indications for Procedure:: Patient is a very pleasant 45-year-old white female who presents today with chronic low back pain and bilateral hip pain related to the above diagnosis. She has tried and failed conservative treatment including oral pain medications and home stretching program for greater than 6 weeks. The plan for today is for the patient to undergo repeat bilateral SI joint injections under fluoroscopy. Procedure Details:: Informed consent was obtained and the risks and benefits of the procedure was explained to the patient. The patient was taken to the procedure room and placed prone on the procedure table. The patient was prepped using ChloraPrep. The skin and subcutaneous tissues overlying the SI joints were anesthetized using lidocaine. I placed a 22-gauge needle first in the left SI joint and second in the right SI joint. Needle placement was confirmed with dye. After this we injected 5 mL bupivacaine 0.25% and Depo-Medrol 40 mg into each SI joint. Patient tolerated the procedure well with no complication. Plan and Disposition:: We will follow-up with this patient in 2 weeks. Will reevaluate pain symptoms at that time.
[2021-05-31 15:06] VITALS: BP 142/94; PULSE 68; RESP 20; O2SAT 98
== END 2021-05-31 15:07 | disposition home or self-care (01) ==
LOC: SC.PAINP 13:53
PROVIDERS: PCP Family Medicine; Visit Provider Anesthesiology
DX: M46.1 Sacroiliitis, not elsewhere classified (principal); M54.50 Low back pain, unspecified; M25.551 Pain in right hip; M25.552 Pain in left hip; M50.30 Other cervical disc degeneration, unspecified cervical region
CPT/HCPCS: 27096; G0260; J1040

== ENCOUNTER 2021-06-26 12:46 | Emergency (ER) | payer BC, SELFPAY ==
[2021-06-26 13:40] VITALS: BP 131/95; PULSE 84; RESP 20; TEMP 36.9; O2SAT 98; BMI 32.3
--- NOTE | 2021-06-26 14:18 | HMH.EDUTC ---
[facility] Disposition Clinical Impression: URI (upper respiratory infection) Qualifiers: URI type: unspecified URI Qualified Code(s): J06.9 - Acute upper respiratory infection, unspecified Disposition: Home, Self-Care Condition on Discharge: Good Instructions: Sinusitis, Sore Throat, Cough, DI for Cough -- Adult Additional Instructions: ? Start antibiotic today. Be sure to complete entire prescription even if feeling better ? Monitor temp. Tylenol every 4 hours as needed and / or ibuprofen every 6 hours as needed ( As long as your primary care physician has told you that it ok to take both. For fever/aches/pains ER if no less than 101 despite Tylenol or Motrin ? Humidifier/vaporizer or hot steamy shower ? Inhaler every 4-6 hours as needed like we discussed. If unsure how to use it, ask pharmacist to demonstrate how. Should help open airways and improve cough, wheezing, and shortness of breath ? Mucinex for your cough Be sure to drink lots of water. *Start steroid today. Helps with inflammation therefore, cough and wheezing. Follow directions on the package. Reviewed side effects. Patient reports taking them before. Follow up IMMEDIATELY for new or worsening of symptoms OR no noticeable improvement over the next 48-72 hours. 911 immediately for any life threatening symptoms such as chest pain or difficulty breathing Prescriptions: guaiFENesin [Mucinex 600mg tablet] 1 - 2 tab PO Q12HP PRN #20 tab PRN Reason: Congestion Transmission Status: Pending to [facility] methylPREDNISolone [Medrol 4mg tab] 4 mg PO DIRECTED #21 tab Transmission Status: Pending to [facility] Azithromycin [Z-Mikey 250mg Tab] 250 mg PO DIRECTED #6 tab Transmission Status: Pending to [facility] Referrals: Doron Fine MD [Primary Care Provider] - As needed Forms: Work/School Release Time of Disposition: 14:31 Medical Decision Making - Malik Inquiry Pt receiving controlled substance: No Malik was queried for this patient: No Vital Signs: 06/26/21 13:40 Temperature 98.4 F Temperature Source Oral Pulse Rate [Right Brachial] 84 Respiratory Rate 20 Blood Pressure [Right Arm] 131/95 H Blood Pressure Mean [Right Arm] 107 Blood Pressure Source [Right Arm] Automatic Cuff Blood Pressure Position [Right Arm] Sitting 02 Sat by Pulse Oximetry 98 Oxygen Delivery Method Room Air - Lab Data Lab results reviewed: Yes: I reviewed the patient's lab results. Orders (Tests/Meds): ORDERS Category Date Time Status Covid-19 Nasal PCR ([facility]) Routine Lab 06/26/21 13:51 Received [facility] HPI - General Stated complaint: sore throat, pain, cough, soa, congestion Time Seen by Provider: 06/26/21 14:18 Mode of Arrival: Ambulatory Source of Information: Patient Limitations: No Limitations Description of Symptoms (Recalled from Triage Doc. by RN): PATIENT C/O SORE THROAT, PRODUCTIVE COUGH AND BODY ACHES SINCE YESTERDAY HEENT Symptoms (Recalled from RN notes): Yes Resp Symptoms (Recalled from RN notes): Yes Skin Symptoms (Recalled from RN notes): No MS Symptoms (Recalled from RN notes): No Functional Status (Recalled from RN notes): WNL - History of Present Illness Provider Complaint: Patient states that she has been feeling achy all over, sore throat, sinus congestion and drainage in the back of her throat and cough State that at times she will cough up some drainage but at times not States that she wanted to get checked for COVID and noticed yesterday that she loss her voice so she she was still feeling bad today she came in to get checked - Related Data Home Medications Medication Instructions Recorded Confirmed celecoxib 200 mg capsule 1 tab PO DAILY 30 Days #30 cap 10/07/18 06/04/21 omeprazole 40 mg capsule,delayed 1 tab PO DAILY 30 Days #30 cap 10/07/18 06/04/21 release duloxetine 60 mg capsule,delayed 60 mg PO DAILY cap 03/11/21 06/04/21 release tizanidine 2 mg capsule 4 mg PO HS
[2021-06-26 14:23] LABS: UTC Influenza A Antigen Negative (Negative)
[2021-06-26 14:24] LABS: UTC Strep Screen (Rapid) Negative (Negative)
[2021-06-26 14:24] LABS: UTC Influenza B Antigen Negative (Negative)
[2021-06-26 14:30] VITALS: BP 131/95; PULSE 84; RESP 20; TEMP 36.9; O2SAT 98
== END 2021-06-26 14:38 | disposition home or self-care (01) ==
PROVIDERS: Emergency Provider Nurse Practitioner; PCP Family Medicine
DX: J06.9 Acute upper respiratory infection, unspecified (principal); Z87.891 Personal history of nicotine dependence; Z20.822 Contact with and (suspected) exposure to COVID-19
CPT/HCPCS: 87804; 87880; 99203; C9803; G0463; U0003; U0005

== ENCOUNTER 2021-06-27 13:00 | Outpatient (RCR) | payer BC, SELFPAY ==
--- NOTE | 2021-06-19 11:25 | HMH.PTOPEV ---
PT Outpatient Evaluation Rehab PT Outpatient Evaluation Start: 06/19/21 10:31 Freq: Status: Active Protocol: Document 06/19/21 10:31 MARIA T (Rec: 06/19/21 11:24 MARIA T [id number]) Electronically Signed By Kris Valencia, PT 06/19/21 10:31 Outpatient Therapy Subjective History Subjective History Pt reports h/o chronic neck pain for ~3 yrs, right > left sided neck pain. Pt reports intermittent Left UE N&T as well, w/recent imaging reports of cervical spine revealing ' degenerative disc disease all the way down'. PMH:fibromyalgia, left partial KA Chief Complaint Pain,Stiff,Paresthesia Symptom Type Ache,Sharp,Dull,Numbness, Tingling Symptoms Relieved By Rest/Positioning Symptoms Aggravated By Physical Activity,Lifting Prior Functional Limitations Reaching,Lifting,Housework Current Functional Limitations Reaching,Lifting,Housework, Driving Symptom Description Constant but Variable Level of pain today (0-10) 2 Pain scale - at its best (0-10) 2 Pain scale - at its worst (0-10) 6 Cervical Eval Palpation Cervical Muscles R Cervical Paraspinal,L Cervical Paraspinal,R CT Junction,L CT Junction,R Upper Trapezius,L Upper Trapezius Cervical/Thoracic Palpation Findings Tenderness,Trigger Point, Muscle Guarding Posture Head/C-Spine Posture Sitting Position Flexed Head/C-Spine Posture Standing Position Flexed Flexibility Deficits Upper Trapezius Muscle Length (R) Moderate Tightness,(L) Moderate Tightness Levaetor Scapulae Muscle Length (R) Moderate Tightness,(L) Moderate Tightness Scalene Group Muscle Length (R) Moderate Tightness,(L) Moderate Tightness Pectoralis Major Muscle Length (R) Moderate Tightness,(L) Moderate Tightness Pectoralis Minor Muscle Length (R) Moderate Tightness,(L) Moderate Tightness Passive Joint Mobility Cervical PIVM WNL: R OA L OA R AA L AA R C2/3 L C2/3 R C3/4 L C3/4 R C4/5
== END 2021-06-27 13:05 | disposition home or self-care (01) ==
LOC: PT 13:00
PROVIDERS: PCP Family Medicine; Visit Provider Specialist
DX: M54.2 Cervicalgia (principal); M43.02 Spondylolysis, cervical region
CPT/HCPCS: 20560; 97010; 97014; 97035; 97110; 97163; G0283

== ENCOUNTER 2021-08-31 19:26 | Emergency (ER) | payer BC, SELFPAY ==
[2021-08-31 19:28] VITALS: BP 131/80; PULSE 74; RESP 20; TEMP 36.6; O2SAT 99; BMI 36.6
--- NOTE | 2021-08-31 20:07 | HMH.EDLOEX ---
ED Disposition Clinical Impression: Lower extremity pain, right Disposition: Home, Self-Care Condition on Discharge: Good Instructions: DI for Leg Pain Additional Instructions: use meds and call pcp for follow up Prescriptions: predniSONE [Prednisone 20mg Tab] 20 mg PO BID #10 tab Transmission Status: Pending to [id number] Referrals: Doron Fine MD [Primary Care Provider] - - Critical Care Critical Care Time: No Attestation: On 08/31/21, the high probability of a clinically significant, sudden or life threatening deterioration of the following system(s) required my full and direct attention, intervention and personal management. The time I documented below is in addition to time spent performing reported procedures but includes the following listed in this critical care notation. Medical Decision Making - Medical Records Medical records reviewed: Yes: I reviewed the patient's medical records. - Malik Inquiry Pt receiving controlled substance: No Vital Signs: 08/31/21 19:28 08/31/21 20:47 Temperature 97.9 F 98.1 F Temperature Source Oral Oral Pulse Rate 80 Pulse Rate [Apical] 74 Respiratory Rate 20 20 Blood Pressure 140/78 Blood Pressure [Right Arm] 131/80 Blood Pressure Mean [Right Arm] 97 Blood Pressure Source [Right Arm] Automatic Cuff Blood Pressure Position [Right Arm] Sitting 02 Sat by Pulse Oximetry 99 Oxygen Delivery Method Room Air Room Air Orders (Tests/Meds): ED MEDICATIONS Discontinued Medications Generic Name Dose Route Start Last Admin Trade Name Freq PRN Reason Stop Dose Admin Ketorolac Tromethamine 60 mg 08/31/21 20:05 08/31/21 20:11 Ketorolac 60mg/2ml Vial IM 08/31/21 20:06 60 mg ONCE ONE Administration Methylprednisolone Sodium Succinate 125 mg 08/31/21 20:10 08/31/21 20:11 Methylprednisolone Sod Succ 125mg Vial IV 08/31/21 20:11 125 mg ONCE ONE Administration Orphenadrine Citrate 60 mg 08/31/21 20:20 08/31/21 20:22 Orphenadrine Citrate 60mg/2ml Vial IM 08/31/21 20:21 60 mg ONCE ONE Administration ORDERS Category Date Time Status Urine , HCG Qual. Stat Lab 08/31/21 20:15 Ordered Medical Decision Narrative: rt knee may have some residual of pain but no def acute changes- no def acute finfings to explain pain so possible referred pain such as lumbar Lower Extremity Injury HPI - General Chief Complaint: Extremity Injury, Lower Stated Complaint: pain in right leg, swelling and also lower back pa Time Seen by Provider: 08/31/21 20:00 Mode of Arrival: Ambulatory Source of Information: Patient, Medical Record Limitations: No Limitations Description of Symptoms (Recalled from ER Triage Doc. by RN): Patient c/o right knee pain for prior year due to a meniscus tear. States that is has gotten worse in the last week. Described the pain as throbbing, states that it begins in the back of her right knee and radiates to the front of her knee and radiates down to her obregon and up to her right hip. Denies any acute injury. - History of Present Illness HPI Narrative: has lower back pain and has rt lower leg pain - no def trauma - no rash - pt has known rt knee injury in past MD complaint: other (no injury ) Onset (ago): hour(s) Injury: Right: knee Type of Injury: unknown Place: home Severity: moderate Context: other (no injury) Other symptoms: none - Related Data Home Medications Medication Instructions Recorded Confirmed celecoxib 200 mg capsule 1 tab PO DAILY 30 Days #30 cap 10/07/18 06/04/21 omeprazole 40 mg capsule,delayed 1 tab PO DAILY 30 Days #30 cap 10/07/18 06/04/21 release duloxetine 60 mg capsule,delayed 60 mg PO DAILY cap 03/11/21 06/04/21 release tizanidine 2 mg capsule 4 mg PO HS cap 05/16/21 06/04/21 pregabalin 75 mg capsule 75 mg PO BID 06/04/21 06/04/21 Previous Rx's Medication Instructions Recorded Azithromycin [Z-Mikey 250mg Tab] 250 mg PO DIRE
[2021-08-31 20:47] VITALS: BP 140/78; PULSE 80; RESP 20; TEMP 36.7; O2SAT 97
== END 2021-08-31 21:32 | disposition home or self-care (01) ==
PROVIDERS: Emergency Provider Emergency Medicine; PCP Family Medicine
DX: M79.661 Pain in right lower leg (principal); M54.50 Low back pain, unspecified; M79.7 Fibromyalgia; Z79.899 Other long term (current) drug therapy
CPT/HCPCS: 96372; 99282; 99283

== ENCOUNTER → 2021-09-12 11:41 | Outpatient (POV) | payer BC, SELFPAY ==
--- NOTE | 2021-09-12 13:20 | P.CONS_ITS ---
[facility] Pain Management SOAP Note Subjective:: Patient is a very pleasant 45-year-old white female who presents for follow-up. She is currently being treated for degenerative disease of the cervical spine with cervical radiculopathy. She also has previously undergone SI joint injections to treat her chronic low back and hip pain and notes almost 80% pain relief but unfortunately only for a few days before the pain returned. She complains of chronic neck pain radiating into her left arm that she describes as sharp shooting pain with numbness tingling and burning sensations. She rates her pain today as a 5 out of 10. He has trialed Tylenol as well as ibuprofen with very minimal pain relief. She is currently prescribed pregabalin 150 mg twice daily by her clinic which she states helps somewhat with the pain. She was recently prescribed Tylenol 3 for very short-term by her primary care physician. She has previously undergone an MRI of the cervical spine which was done on May 24, 2021 which demonstrates multilevel degenerative disc disease with osteophyte complex at C4-C5 and C5-C6 as well as a broad-based annular disc bulge resulting in right neural foraminal narrowing at C3-C4 and a broad-based annular disc bulge at C6-C7 with moderate neuroforaminal narrowing the left. Objective:: General: Alert and oriented x3, no acute distress, pleasant and cooperative Lungs: Resps E/U, symmetric chest expansion Eyes: PERRL Musculoskeletal: limited flexion and extension of the lumbar spine secondary to pain. Deep tendon reflexes were normal in bilateral lower extremities. Motor exam was grossly intact in the bilateral lower extremities, antalgic gait noted. 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 We will follow-up with this patient for the above injection to be performed at the next clinic visit. Malik and prior drug screens were reviewed and appropriate. [facility] History Medical History: Denies:: Cancer, Diabetes Mellitus Type 1, Diabetes Mellitus Type 2, Hypertension, MRSA, Seizures *Have you ever received a pneumonia vaccine?: Yes *Have you received a flu vaccine this season?: No Other Medical History: Reports: Anemia, Arthritis, Fibromyalgia. Denies: Blood Transfusion Reaction Laterality Cases: Bilateral: Arthroscopy Knee Other Surgeries: Yes: No Previous Surgery, Tubal Ligation, Other Amputation: No Fractures: No - *Social History Smoking Status: Former smoker Alcohol Intake: never Substance Use Type: denies use *Occupational Status:: employed Housing: house Household Members: spouse *Travel in the last 8 weeks: None Family Hx:: Other, Cancer
[2021-09-12 14:08] VITALS: BP 151/94; PULSE 69; RESP 20; TEMP 36.5; O2SAT 99; BMI 36.6
== END ==
PROVIDERS: Visit Provider Anesthesiology Pain Medicine
DX: M50.10 Cervical disc disorder with radiculopathy, unspecified cervical region (principal); M46.1 Sacroiliitis, not elsewhere classified; G89.29 Other chronic pain; M54.50 Low back pain, unspecified; M25.551 Pain in right hip; M25.552 Pain in left hip
CPT/HCPCS: 99212; G0463

== ENCOUNTER 2021-09-23 13:24 | Emergency (ER) | payer BC, SELFPAY ==
[2021-09-23] VITALS (7 sets, daily range): BP systolic 136–153; BP diastolic 95–96; PULSE 61–86; RESP 12–20; TEMP 36.4; O2SAT 95–99; BMI 36.6
--- NOTE | 2021-09-23 13:23 | ECG_ITS ---
APPROVED REPORT Exam: Resting ECG HR:69 bpm ECG Measurements Heart Rate 69 AXES VT 140 P 36 QRSd 89 QRS 12 QT 392 T 30 QTc 411 Conclusion SINUS RHYTHM MODERATE VOLTAGE CRITERIA FOR LVH, CONSIDER NORMAL VARIANT [MEETS CRITERIA IN ONE OF: R(aVL), S(V1), R(V5), R(V5/V6)+S(V1)] BORDERLINE ECG UNCONFIRMED REPORT Electronically signed by : Teddy Culver MD 09/24/2021 14:07:32
--- NOTE | 2021-09-23 13:29 | XR_ITS ---
FINAL REPORT CLINICAL HISTORY: chest pain FINDINGS: Two views of the chest were obtained. The heart size and pulmonary vascularity are within normal limits. The mediastinum is normal. No acute pulmonary abnormality is identified. There is no pneumothorax. The bony thorax is intact. IMPRESSION: No active cardiopulmonary disease. Reviewed, Interpreted and Dictated by Thien Sherman III, MD Transcribed by Vale Jacob Authenticated by Thien Sherman III, MD on 09/23/2021 03:00:45 PM [facility]
--- NOTE | 2021-09-23 13:43 | PC.NURSE ---
ED MD at
--- NOTE | 2021-09-23 13:49 | HMH.EDGENADL ---
ED Disposition Clinical Impression: Chest pain Qualifiers: Chest pain type: unspecified Qualified Code(s): R07.9 - Chest pain, unspecified Disposition: Home, Self-Care Condition on Discharge: Good Additional Instructions: Please continue to monitor your condition at home. If your condition worsens or any other concerns arise, please return to the emergency department for reassessment. Otherwise, please follow-up with your primary care physician. Referrals: Doron Fine MD [Primary Care Provider] - - Critical Care Critical Care Time: No Attestation: On 09/23/21, the high probability of a clinically significant, sudden or life threatening deterioration of the following system(s) required my full and direct attention, intervention and personal management. The time I documented below is in addition to time spent performing reported procedures but includes the following listed in this critical care notation. Medical Decision Making - Medical Records Medical records reviewed: Yes: I reviewed the patient's medical records. - Malik Inquiry Pt receiving controlled substance: No Vital Signs: 09/23/21 13:46 09/23/21 14:24 09/23/21 14:27 Temperature 97.6 F Temperature Source Oral Pulse Rate 63 62 Pulse Rate [Left Radial] 69 Respiratory Rate 18 12 Blood Pressure 144/96 H 144/96 H Blood Pressure [Right Arm] 153/96 H Blood Pressure Mean 109 Blood Pressure Mean [Right Arm] 115 02 Sat by Pulse Oximetry 98 98 95 Oxygen Delivery Method Room Air 09/23/21 14:30 09/23/21 15:00 09/23/21 17:26 Temperature Temperature Source Pulse Rate 62 61 68 Pulse Rate [Left Radial] Respiratory Rate 17 14 12 Blood Pressure 141/95 H 145/95 H 136/96 H Blood Pressure [Right Arm] Blood Pressure Mean 111 111 103 Blood Pressure Mean [Right Arm] 02 Sat by Pulse Oximetry 95 97 97 Oxygen Delivery Method 09/23/21 17:33 Temperature 97.6 F Temperature Source Pulse Rate 86 Pulse Rate [Left Radial] Respiratory Rate 20 Blood Pressure 136/96 H Blood Pressure [Right Arm] Blood Pressure Mean Blood Pressure Mean [Right Arm] 02 Sat by Pulse Oximetry Oxygen Delivery Method Room Air - Lab Data Lab results reviewed: Yes: I reviewed the patient's lab results. Lab Results 09/23/21 13:28: WBC 5.5, RBC 3.99 L, Hgb 12.0 L, Hct 36.9 L, MCV 92.5, MCH 29.9, MCHC 32.3, RDW 14.6, Plt Count 297, MPV 7.4, Neut % (Auto) 62.7, Lymph % (Auto) 27.4, [place] % (Auto) 5.3, Eos % (Auto) 3.1, Baso % (Auto) 1.4, Neut # (Auto) 3.5, Lymph # (Auto) 1.5, [place] # (Auto) 0.3, Eos # (Auto) 0.2, Baso # (Auto) 0.1 09/23/21 13:28: Troponin I < 0.01 09/23/21 13:28: D-Dimer 0.94 H Result diagrams: 09/23/21 13:28 Orders (Tests/Meds): ED MEDICATIONS Discontinued Medications Generic Name Dose Route Start Last Admin Trade Name Freq PRN Reason Stop Dose Admin Acetaminophen 1,000 mg 09/23/21 14:01 09/23/21 14:29 Acetaminophen 500mg Tab PO 09/23/21 14:02 1,000 mg ONCE ONE Administration Belladonna Alkaloids 60 ml 09/23/21 14:01 09/23/21 14:29 Gi Cocktail 60ml Udc PO 09/23/21 14:02 60 ml ONCE ONE Administration Ibuprofen 400 mg 09/23/21 14:01 09/23/21 14:29 Ibuprofen 400 Mg Tablet PO 09/23/21 14:02 400 mg ONCE ONE Administration Prochlorperazine Edisylate 10 mg 09/23/21 14:02 09/23/21 14:28 Prochlorperazine 10mg/2ml Vial IV 09/23/21 14:03 10 mg ONCE ONE Administration Medical Decision Narrative: Jasmyn is a 45-year-old female without significant past medical history is presenting for chief complaint of 3 days of headache and now chest pain. Differential diagnosis includes, but is not limited to, migraine, status migrainosus, viral upper respiratory infection, pneumonia, myocarditis/pericarditis, other. On initial exam, she is hemodynamically stable and nontoxic-appearing. She has clear lung sounds bilaterally. She was evaluate CBC, CMP, troponin, D-dimer, chest x-ray and EK
--- NOTE | 2021-09-23 13:59 | PC.NURSE ---
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
[2021-09-23 14:00] LABS: Basophils # 0.1 K/mm3 (0-0.2); Basophils % 1.4 % (0.1-2.0); Eosinophils # 0.2 K/mm3 (0.0-0.4); Eosinophils % 3.1 % (0.1-12.0); Hematocrit 36.9 % (37.0-47.0); Lymphocytes # 1.5 K/mm3 (0.7-4.5); Lymphocytes % 27.4 % (10-50); Mean Corpuscular HGB Conc 32.3 g/dL (31.8-35.4); Mean Corpuscular Hemoglobin 29.9 pg (27.0-31.2); Mean Corpuscular Volume 92.5 fl (81-99); Mean Platelet Volume 7.4 fl (7.4-10.4); Monocytes # 0.3 K/mm3 (0.1-1.0); Monocytes % 5.3 % (1.7-9.3); Neutrophils # 3.5 K/mm3 (1.8-7.8); Neutrophils % 62.7 % (37.0-80.0); Platelet Count 297 K/mm3 (142-424); Red Blood Count 3.99 M/mm3 (4.20-5.40); Red Cell Distribution Width 14.6 % (11.5-17.5); White Blood Count 5.5 K/mm3 (4.8-10.8)
[2021-09-23 14:18] LABS: Troponin I < 0.01 ng/ml (0.00-0.034)
[2021-09-23 14:26] LABS: D-Dimer 0.94 ug/mL (0.0-0.5)
--- NOTE | 2021-09-23 15:17 | CA_ITS ---
FINAL REPORT CLINICAL HISTORY: Limb swelling FINDINGS: Color Doppler, duplex Doppler and compression sonography of the bilateral lower extremities was performed. There is no evidence of deep venous thrombosis from the level of the groin to the calf. The deep veins are patent and compressible. IMPRESSION: No evidence of deep venous thrombosis bilateral lower extremities. Reviewed, Interpreted and Dictated by Thien Sherman III, MD Transcribed by Yves Oseguera Authenticated by Thien Sherman III, MD on 09/23/2021 04:41:00 PM [facility]
--- NOTE | 2021-09-23 15:35 | PC.NURSE ---
Vascular at [facility] for ultrasound
== END 2021-09-23 17:35 | disposition home or self-care (01) ==
PROVIDERS: Emergency Provider Emergency Medicine; PCP Family Medicine
DX: R07.9 Chest pain, unspecified (principal); R51.9 Headache, unspecified; Z79.899 Other long term (current) drug therapy; Z87.891 Personal history of nicotine dependence; M79.7 Fibromyalgia; D64.9 Anemia, unspecified
CPT/HCPCS: 71046; 84484; 85025; 85378; 93005; 93970; 96374; 99284

== ENCOUNTER 2021-09-27 21:38 | Emergency (ER) | payer BC, SELFPAY ==
[2021-09-27 21:39] VITALS: BP 138/71; PULSE 96; RESP 21; TEMP 36.8; O2SAT 99; BMI 36.6
--- NOTE | 2021-09-27 21:51 | CT_ITS ---
PROCEDURE INFORMATION: Exam: CT Head Without Contrast Exam date and time: 09/27/2021 10:05 PM Age: 45 years old Clinical indication: Pain; Headache not specified; Additional info: CALLAWAY TECHNIQUE: Imaging protocol: Computed tomography of the head without contrast. Radiation optimization: All CT scans at this facility use at least one of these dose optimization techniques: automated exposure control; mA and/or kV adjustment per patient size (includes targeted exams where dose is matched to clinical indication); or iterative reconstruction. COMPARISON: CT HEAD/BRAIN WO CON 07/09/2019 1:34 AM FINDINGS: Brain: Normal. No hemorrhage. Unremarkable white matter. No mass effect. Cerebral ventricles: No ventriculomegaly. Paranasal sinuses: Moderate ethmoid sinus mucosal thickening is present. Moderate maxillary polypoid mucosal thickening is present. Mastoid air cells: Visualized mastoid air cells are well aerated. Bones/joints: Unremarkable. No acute fracture. Soft tissues: Unremarkable. IMPRESSION: No acute intracranial abnormality.
[2021-09-27 22:18] LABS: Coronavirus 19, PCR Not Detected (NotDetected); Influenza A, PCR Not Detected (NotDetected); Influenza B, PCR Not Detected (NotDetected)
--- NOTE | 2021-09-27 22:28 | HMH.EDHA ---
ED Disposition Clinical Impression: Headache Qualifiers: Headache type: unspecified Headache chronicity pattern: acute headache Intractability: not intractable Qualified Code(s): R51.9 - Headache, unspecified Disposition: Home, Self-Care Condition on Discharge: Good Instructions: DI for Headache Additional Instructions: call pcp in am for follow up Referrals: Doron Fine MD [Primary Care Provider] - Forms: Work/School Release - Critical Care Critical Care Time: No Attestation: On 09/27/21, the high probability of a clinically significant, sudden or life threatening deterioration of the following system(s) required my full and direct attention, intervention and personal management. The time I documented below is in addition to time spent performing reported procedures but includes the following listed in this critical care notation. Medical Decision Making - Medical Records Medical records reviewed: Yes: I reviewed the patient's medical records. - Malik Inquiry Pt receiving controlled substance: No Vital Signs: 09/27/21 21:39 09/27/21 23:30 Temperature 98.3 F 98.3 F Temperature Source Oral Pulse Rate 90 Pulse Rate [Right] 96 H Respiratory Rate 21 16 Blood Pressure 134/74 Blood Pressure [Right Arm] 138/71 Blood Pressure Mean [Right Arm] 93 02 Sat by Pulse Oximetry 99 - Lab Data Lab results reviewed: Yes: I reviewed the patient's lab results. Lab Results 09/27/21 22:06: WBC 5.1, RBC 4.27, Hgb 12.9, Hct 38.6, MCV 90.5, MCH 30.1, MCHC 33.3, RDW 15.0, Plt Count 256, MPV 8.4, Neut % (Auto) 82.0 H, Lymph % (Auto) 11.3, Ritchie % (Auto) 6.3, Eos % (Auto) 0.2, Baso % (Auto) 0.2, Neut # (Auto) 4.2, Lymph # (Auto) 0.6 L, Ritchie # (Auto) 0.3, Eos # (Auto) 0.0, Baso # (Auto) 0.0, ESR 28 H 09/27/21 22:06: Sodium 136, Potassium 3.2 L, Chloride 102, Carbon Dioxide 22, Anion Gap 15.2 H, BUN 14, Creatinine 0.50 L, Estimated Creat Clear 203, Estimated GFR 133, Est GFR ( Amer) 161, Glucose 108 H, Calcium 8.6, Total Bilirubin 0.6, AST 35, ALT 23, Alkaline Phosphatase 97, C-Reactive Protein 52.5 H, Total Protein 7.4, Albumin 4.3, Globulin 3.1, Albumin/Globulin Ratio 1.4, Procalcitonin 0.128 09/27/21 22:06: SARS-CoV-2 (PCR) Not detected, Influenza A Untype (PCR) Not detected, Influenza Type B (PCR) Not detected 09/27/21 22:06: Lactate 0.7 Result diagrams: 09/27/21 22:06 09/27/21 22:06 Orders (Tests/Meds): ED MEDICATIONS Generic Name Dose Route Start Last Admin Trade Name Freq PRN Reason Stop Dose Admin Sodium Chloride 1,000 mls @ 999 mls/hr 09/27/21 22:00 09/27/21 21:58 Sod Chlor 0.9% 1000ml Bag IV 09/27/21 23:00 999 mls/hr .Q1H1M MAGNUS Administration Sodium Chloride 8 ml 09/27/21 21:54 Sodium Chloride 0.9% 10ml Vial IV 10/27/21 21:53 NEEDED PRN dilute pepcid Discontinued Medications Generic Name Dose Route Start Last Admin Trade Name Freq PRN Reason Stop Dose Admin Diphenhydramine HCl 50 mg 09/27/21 21:54 09/27/21 21:57 Diphenhydramine 50mg/Ml Vial IV 09/27/21 21:55 50 mg ONCE ONE Administration Famotidine 20 mg 09/27/21 21:54 09/27/21 21:57 Famotidine 20mg/2ml Vial IV 09/27/21 21:55 20 mg ONCE ONE Administration Ketorolac Tromethamine 30 mg 09/27/21 21:54 09/27/21 21:57 Ketorolac 30mg/Ml Vial IV 09/27/21 21:55 30 mg ONCE ONE Administration Methylprednisolone Sodium Succinate 125 mg 09/27/21 22:18 09/27/21 22:34 Methylprednisolone Sod Succ 125mg Vial IV 09/27/21 22:19 125 mg ONCE ONE Administration Metoclopramide HCl 10 mg 09/27/21 21:54 09/27/21 21:57 Metoclopramide Hcl 10mg/2ml Vial IVP 09/27/21 21:55 10 mg ONCE ONE Administration Promethazine HCl 25 mg 09/27/21 21:54 09/27/21 21:58 Promethazine Hcl 25mg/Ml 1ml Vial IV 09/27/21 21:55 25 mg ONCE ONE Administration Sodium Chloride 25 ml 09/27/21 21:54 Sodium Chloride 0.9% 25ml Bag IV 09/27/21 21:55 ONCE ONE ORDERS Categor
[2021-09-27 22:34] LABS: Alanine Aminotransferase 23 U/L (12-78); Albumin Level 4.3 g/dl (3.5-5.0); Albumin/Globulin Ratio 1.4 (1.1-1.8); Alkaline Phosphatase 97 U/L (38-126); Anion Gap 15.2 mEq/L (5-15); Aspartate Amino Transferase 35 U/L (14-36); Bilirubin,Total 0.6 mg/dl (0.2-1.3); Blood Urea Nitrogen 14 mg/dl (7-17); Calcium 8.6 mg/dl (8.4-10.2); Carbon Dioxide 22 mmol/L (22.0-30.0); Chloride 102 mmol/L (98-107); Creatinine Clearance Estimated 203 mL/min (50-200); Estimated Glomerular Filt Rate 133 ml/min (>60); GFR (African American) 161 ML/MIN (>60); Globulin 3.1 g/dL (1.3-3.2); Glucose 108 mg/dl (74-100); Lactic Acid 0.7 mmol/L (0.7-2.1); Potassium 3.2 mmoL/L (3.5-5.1); Sodium 136 mmol/L (136-145); Total Protein,Serum 7.4 g/dl (6.3-8.2)
[2021-09-27 22:39] LABS: C-Reactive Protein 52.5 mg/L (0-4)
[2021-09-27 22:47] LABS: Basophils % 0.2 % (0.1-2.0); Eosinophils % 0.2 % (0.1-12.0); Hematocrit 38.6 % (37.0-47.0); Hemoglobin 12.9 g/dL (12.2-16.2); Lymphocytes # 0.6 K/mm3 (0.7-4.5); Lymphocytes % 11.3 % (10-50); Mean Corpuscular HGB Conc 33.3 g/dL (31.8-35.4); Mean Corpuscular Hemoglobin 30.1 pg (27.0-31.2); Mean Corpuscular Volume 90.5 fl (81-99); Mean Platelet Volume 8.4 fl (7.4-10.4); Monocytes # 0.3 K/mm3 (0.1-1.0); Monocytes % 6.3 % (1.7-9.3); Neutrophils # 4.2 K/mm3 (1.8-7.8); Platelet Count 256 K/mm3 (142-424); Red Blood Count 4.27 M/mm3 (4.20-5.40); White Blood Count 5.1 K/mm3 (4.8-10.8)
[2021-09-27 22:54] LABS: Procalcitonin 0.128 ng/mL (0.0-2.0)
[2021-09-27 23:14] LABS: Erythrocyte Sedimentation Rate 28 mm/hr (0-20)
[2021-09-27 23:30] VITALS: BP 134/74; PULSE 90; RESP 16; TEMP 36.8; O2SAT 99
== END 2021-09-28 00:03 | disposition home or self-care (01) ==
PROVIDERS: Emergency Provider Emergency Medicine; PCP Family Medicine
DX: R51.9 Headache, unspecified (principal); J02.9 Acute pharyngitis, unspecified; R11.2 Nausea with vomiting, unspecified; R53.1 Weakness; D64.9 Anemia, unspecified; M79.7 Fibromyalgia; Z20.822 Contact with and (suspected) exposure to COVID-19; M19.90 Unspecified osteoarthritis, unspecified site; Z79.52 Long term (current) use of systemic steroids; Z79.899 Other long term (current) drug therapy; Z87.891 Personal history of nicotine dependence; Z80.9 Family history of malignant neoplasm, unspecified
CPT/HCPCS: 70450; 80053; 83605; 84145; 85025; 85651; 86140; 87040; 96361; 96365; 96374; 96375; 99284; C9803; U0003; U0005

== ENCOUNTER 2021-10-04 09:53 | Day surgery (SDC) | payer BC, SELFPAY ==
[2021-10-04 10:03] VITALS: BP 168/92; BP 170/94; PULSE 60; PULSE 63; RESP 18; RESP 20; O2SAT 98; O2SAT 99
[2021-10-04 10:07] VITALS: BP 149/100; PULSE 76; RESP 18; TEMP 36.8; O2SAT 97; BMI 36.6
--- NOTE | 2021-10-04 10:36 | HMH.PMPROC ---
- Procedure Date: 10/04/21 Time: 10:36 Anesthesiologist:: Mariama Kelly MD Complications:: None Pre-procedure Diagnosis:: Degenerative disc disease of the cervical spine with cervical radiculopathy Post-procedure Diagnosis:: Same Indications for Procedure:: Patient is a very pleasant 45-year-old white female who presents today with chronic neck pain radiating into her arms related to the above diagnosis. She has tried and failed conservative treatment including oral pain medications and home stretching program for greater than 6 weeks. Of note, the patient has previously undergone multiple bilateral SI joint injections under fluoroscopy and notes significant pain relief, need to 80% for several months. MRI of the cervical spine was performed which demonstrated a broad-based annular disc bulge at C6-C7 with moderate narrowing of the left neural foramina. Plan for today to the patient to undergo cervical epidural steroid injection under fluoroscopy at C6-7 #1. Procedure Details:: Cervical epidural steroid injection under fluoroscopy Informed consent was obtained and the risks and benefits of the procedure was explained to the patient. The patient was taken to the procedure room placed prone on the procedure table. The neck was prepped using ChloraPrep. The skin and subcutaneous tissues were anesthetized using lidocaine. I placed a 18-gauge epidural needle into the C6-C7 interspace and advanced using [id number] to air and fluoroscopic guidance. After confirmation of needle placement in the epidural space with dye, I injected 3 mL's lidocaine 1.5% and Depo-Medrol 80 mg. The patient tolerated the procedure well with no complications. Plan and Disposition:: Follow-up with this patient in 2 weeks. Will reevaluate pain symptoms at that time.
[2021-10-04 10:55] VITALS: BP 150/96; PULSE 72; RESP 20; O2SAT 99
== END 2021-10-04 10:56 | disposition home or self-care (01) ==
LOC: SC.PAINP 09:54
PROVIDERS: PCP Family Medicine; Visit Provider Anesthesiology Pain Medicine
DX: M50.10 Cervical disc disorder with radiculopathy, unspecified cervical region (principal); I10 Essential (primary) hypertension
CPT/HCPCS: 62321; Q9966

== ENCOUNTER → 2021-12-19 14:19 | Outpatient (POV) | payer BC, SELFPAY ==
[2021-12-19 14:43] VITALS: BP 139/92; PULSE 78; RESP 18; TEMP 36.8; O2SAT 96; BMI 35.1
--- NOTE | 2021-12-19 14:51 | HMH.PAINSOAP ---
[facility] Pain Management SOAP Note Subjective:: Patient is a pleasant 46-year-old female who presents today for follow-up. Patient is currently being treated for chronic neck pain and bilateral hip pain. We have been managing this patient with injective therapy. She has had multiple bilateral SI injections that provides 80% of relief for several months. She has also had a cervical epidural steroid injection that only provided about 1 to 2 weeks of relief. We have also been managing this patient with Lyrica 150 mg 2 times a day. Denies any side effects from this medication. Patient states that this medication is helping a lot of her radicular pains. Today, she is complaining of pain around her neck and upper trapezius and she also has pain around bilateral hips whenever she stands and walks for long periods of time. 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 Additionally, she is also having bilateral knee pain this been going on for several years. She is being followed by an orthopedic group in order to contact you for this. Denies any recent falls or traumas. Denies any loss of bowel or bladder function. She rates her pain today as 7 out of 10. Malik [phone] with an active morphine equivalent of 0. Review of Systems: General: No recent weight changes, no fever, no sleep disturbances Respiratory: No cough, no shortness of air, no recurring pulmonary infections Cardiovascular/peripheral vascular: No chest pain, no palpitations, no edema, no shortness of breath Gastrointestinal: No new onset incontinence, normal bowel movements reported Genitourinary: No new onset incontinence Musculoskeletal: Low back pain, neck pain, bilateral hip pain Psychiatric: [Normal mood/affect] Neurological: [Denies weakness in extremities], [denies balance issues] Objective:: Physical Exam: General: Alert and oriented x3, no acute distress, pleasant and cooperative Lungs: Respirations even and unlabored, symmetrical chest expansion Eyes: PERRL Musculoskeletal: Flexion and extension of cervical [spine] somewhat guarded secondary to pain, [antalgic gait noted]; tender to palpation around the bilateral cervical paraspinous and upper trapezius muscles. Bilateral SI are positive for HOA, Dayron's, Osage's, Gaenslen's, compression, and distraction. Neurological: Speech clear, no gross sensory deficit Assessment:: degenerative disc disease of the cervical spine with cervical radiculopathy symptoms, chronic low back pain, bilateral sacroiliitis, myofascial pain Plan:: We will schedule the patient for trigger point injections on bilateral cervical paraspinous and upper trapezius muscles. Risks and benefits of the procedure have been explained to the patient. Patient would like to proceed with the procedure. We will also schedule the patient for a bilateral SI injection. Patient has done physical therapy in the past that provided some relief. Patient continues to do home exercises. She takes [id number] medications for pain on top of her Lyrica. We will continue the patient's Lyrica 150 mg twice a day. We will provide the patient with 3 months worth of refill. Patient has been instructed to contact the clinic with any concerns before the next appointment. Dr. Lopez has reviewed this note and agrees with this plan of care. This note was dictated using voice recognition software and make contain errors or omissions. [facility] History Medical History: Denies:: Cancer, Diabetes Mellitus Type 1, Diabetes Mellitus Type 2, Hypertension, MRSA, Seizures *Have you ever received a pneumonia vaccine?: No *Have you received a flu vaccine this season?: No Other Medical History: Reports: Anemia, Arthritis, Fibromyalgia. Denies: Blood Transfusion Reaction Laterality Cases: Bilateral: Arthroscopy Knee Other Surgeries: Yes: No Previous Surgery, Tubal Ligation, Other Amputation: No Fractures: No - *Social History Smoking Status: Never smoker Alcohol
== END ==
PROVIDERS: Visit Provider Student in an Organized Health Care Education/Training Program
DX: M54.2 Cervicalgia (principal); G89.29 Other chronic pain; M25.552 Pain in left hip; M25.551 Pain in right hip
CPT/HCPCS: 99212; G0463

== ENCOUNTER 2021-12-24 12:36 | Day surgery (SDC) | payer BC, SELFPAY ==
[2021-12-24 13:15] VITALS: BP 145/88; PULSE 79; RESP 18; TEMP 36.8; O2SAT 99; BMI 31.1
[2021-12-24 13:22] VITALS: BP 157/95; PULSE 78; RESP 20
--- NOTE | 2021-12-24 13:31 | HMH.PMPROC ---
- Procedure Date: 12/24/21 Time: 13:31 Anesthesiologist:: Karsten Payton CRNA Complications:: None Pre-procedure Diagnosis:: Myofascial pain cervical paraspinous muscles. Post-procedure Diagnosis:: Same Indications for Procedure:: This patient is a very pleasant 46-year-old female who presents today for trigger point injections of the cervical paraspinous muscle as well as bilateral trapezius muscles. 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 Specifically arms overhead movement. Upon examination she has point tenderness over the bilateral paraspinous muscles cervical spine as well as bilateral trapezius muscles. Procedure Details:: Details of the procedure were explained to the patient. The patient taken the procedure room placed in the sitting position. The area of the posterior cervical spine as well as bilateral trapezius muscle were cleansed using chlorhexidine as a cleansing solution. Using a solution of 1% lidocaine and 0.25% Marcaine +40 mg of Depo-Medrol 2 cc was injected in 3 separate areas on the right cervical paraspinous muscle. As well as 2 places on the right trapezius muscle. This was done with a 1-1/2 inch 25-gauge needle. The same was carried out on the left side. Patient tolerated procedure without difficulty. There are no complications. Plan and Disposition:: Patient was discharged without incident.
[2021-12-24 13:32] VITALS: BP 144/96; PULSE 80; RESP 18; O2SAT 98
== END 2021-12-24 13:33 | disposition home or self-care (01) ==
LOC: SC.PAINP 12:37
PROVIDERS: PCP Family Medicine; Visit Provider Nurse Anesthetist, Certified Registered
DX: M79.18 Myalgia, other site (principal); M47.812 Spondylosis without myelopathy or radiculopathy, cervical region; M50.30 Other cervical disc degeneration, unspecified cervical region
CPT/HCPCS: 20552; J1040

== ENCOUNTER 2022-01-10 10:51 | Day surgery (SDC) | payer BC, SELFPAY ==
[2022-01-10 11:21] VITALS: BP 150/95; PULSE 72; RESP 18; TEMP 36.6; O2SAT 96; BMI 34.4
[2022-01-10 12:08] VITALS: BP 120/65; PULSE 85
[2022-01-10 12:14] VITALS: BP 125/77; PULSE 85; RESP 18; O2SAT 98
[2022-01-10 12:32] VITALS: BP 161/93; PULSE 68; RESP 20; O2SAT 100
--- NOTE | 2022-01-10 12:35 | HMH.PMPROC ---
- Procedure Date: 01/10/22 Time: 12:35 Anesthesiologist:: Mark Anthony Lopez MD Complications:: None Pre-procedure Diagnosis:: Sacroiliitis Post-procedure Diagnosis:: Same Indications for Procedure:: Patient is a pleasant 46-year-old white female who we have been treating for neck pain as well as bilateral hip pain. She did well with her cervical epidural steroid injection. She has increasing pain over both hips. She is tender over both SI joints. She has a positive Ledy's test bilaterally. She has positive Bogart's test bilaterally. She is positive SI joint compression test bilaterally. She has a positive distraction test bilaterally. We will seek approval and plan on bilateral SI joint injections under fluoroscopy today to help with her pain symptoms. Procedure Details:: B/L SI joint injection under fluoroscopy Informed consent was obtained and the risks and benefits of the procedure was explained to the patient. The patient was taken to the procedure room and placed prone on the procedure table. The patient was prepped using ChloraPrep. The skin and subcutaneous tissues overlying the SI joints were anesthetized using lidocaine. I placed a 22-gauge needle first in the left SI joint and second in the right SI joint. Needle placement was confirmed with dye. After this we injected 5 mL bupivacaine 0.25% and Depo-Medrol 40 mg into each SI joint. Patient tolerated the procedure well with no complication. Plan and Disposition:: We will follow-up with her in 2 weeks. Will reevaluate symptoms at that time. We will prescribe her baclofen 10 mg twice a day and Zanaflex 4 mg at night to help with muscle spasms throughout her hamstrings.
== END 2022-01-10 12:33 | disposition home or self-care (01) ==
LOC: SC.PAINP 10:53
PROVIDERS: PCP Family Medicine; Visit Provider Anesthesiology
DX: M46.1 Sacroiliitis, not elsewhere classified (principal)
CPT/HCPCS: 27096; G0260; J1030; Q9966

== ENCOUNTER → 2022-01-30 10:16 | Outpatient (POV) | payer BC, SELFPAY ==
[2022-01-30 10:21] VITALS: BP 149/99; PULSE 82; RESP 20; O2SAT 95; BMI 35.3
--- NOTE | 2022-01-30 10:49 | HMH.PAINSOAP ---
[facility] Pain Management SOAP Note Subjective:: Patient is a pleasant 46-year-old female who presents today for follow-up and medication refill. We are currently treating the patient for degenerative disc disease of cervical spine with cervical radiculopathy symptoms, chronic low back pain, bilateral sacroiliitis and myofascial pain. She recently had a bilateral SI injection on 01/10/2022. She states that this injection did not help her pain, stating she got no relief. Patient has had multiple injective therapy in the past, also including trigger point injections of her cervical paraspinous and bilateral trapezius, and cervical epidural injection. Today she rates her pain a 5 out of 10. She states the pain is still in her neck into her shoulders, bilateral knees, legs and calves. She describes this as a ache that is continuous. She currently takes Lyrica 150 mg twice a day and Celebrex 200 mg. She states these medications significantly improve her pain. She states she has had physical therapy in the past with minimal improvement. Patient states she had a left partial knee replaced 7 years ago and is now needing a right knee replacement. She states she has a lot of pain in and around her knees. She states that her left leg is longer than her right due to her right now being [id number]. Patient would like refills on her Lyrica if possible today. Patient's Malik is [phone]. It has been reviewed and is appropriate. Review of Systems: General: No recent weight changes, no fever, no sleep disturbances Respiratory: No cough, no shortness of air, no recurring pulmonary infections Cardiovascular/peripheral vascular: No chest pain, no palpitations, no edema, no shortness of breath Gastrointestinal: No new onset incontinence, normal bowel movements reported Genitourinary: No new onset incontinence Musculoskeletal: Neck pain, bilateral knee pain, bilateral leg pain Psychiatric: [Normal mood/affect] Neurological: [Denies weakness in extremities], [denies balance issues] Objective:: Physical Exam: General: Alert and oriented x3, no acute distress, pleasant and cooperative Lungs: Respirations even and unlabored, symmetrical chest expansion Eyes: PERRL Musculoskeletal: Flexion and extension of bilateral knees, cervical [spine] somewhat guarded secondary to pain, [antalgic gait noted] Neurological: Speech clear, no gross sensory deficit Assessment:: Degenerative disc disease of cervical spine with cervical radiculopathy symptoms, chronic low back pain, bilateral sacroiliitis, myofascial pain Plan:: Patient has had minimal relief with injections in the past. She states her trigger point injection she did have 60 to 65% improvement. She states that she feels like this is still helping and that she has noticed a significant difference when she goes from a tub sitting position to standing. She would like to continue these injections in the future. I will refer the patient to Dr. Rishabh Espino for bilateral knee consult. I will order the patient bilateral knee x-rays. I will also refer the patient to physical therapy for for dry needling and deep tissue manipulation. I will also order the patient a compounding cream at today's visit. I will refill the patient's Lyrica at today's visit however it is not due to be refilled until 02/10. I have also discussed with the patient regarding long-term therapy such as a stimulator. I have reviewed risk and benefits of this procedure with the patient. Educational handouts were given at today's visit. Patient will return to clinic in 1 month for follow-up and reevaluation of symptoms. Patient has been instructed to contact the clinic with any concerns before the next appointment. Dr. Lopez has reviewed this note and agrees with this plan of care. This note was dictated using voice recognition software and make contain errors or omissions. [facility] History I have reviewed the patient's past medical history: Yes Medical His
== END ==
PROVIDERS: Visit Provider Student in an Organized Health Care Education/Training Program
DX: M50.30 Other cervical disc degeneration, unspecified cervical region (principal); M46.1 Sacroiliitis, not elsewhere classified; M54.50 Low back pain, unspecified; M79.18 Myalgia, other site
CPT/HCPCS: 99212; G0463

== ENCOUNTER → 2022-01-30 11:16 | Outpatient (CLI) | payer BC, SELFPAY ==
--- NOTE | 2022-01-30 | XR_ITS ---
FINAL REPORT CLINICAL HISTORY: right knee pain FINDINGS: RIGHT KNEE Three views were obtained. There is no acute fracture or dislocation. There are mild and moderate degenerative changes, worst in the medial compartment. Moderate joint effusion is identified. No soft tissue abnormality is identified. IMPRESSION: Degenerative changes and moderate joint effusion. Reviewed, Interpreted and Dictated by Thien Sherman III, MD Transcribed by Brooke Jerez Authenticated and [facility]
--- NOTE | 2022-01-30 | XR_ITS ---
FINAL REPORT CLINICAL HISTORY: KNEE PAIN FINDINGS: LEFT KNEE Three views were obtained. There is no acute fracture or dislocation. There are postoperative changes from medial compartment arthroplasty. Moderate degenerative changes are seen elsewhere. No soft tissue abnormality is identified. IMPRESSION: Degenerative and postoperative changes as above. Reviewed, Interpreted and Dictated by Thien Sherman III, MD Transcribed by Brooke Jerez Authenticated and [facility]
== END ==
PROVIDERS: PCP Family Medicine; Visit Provider Student in an Organized Health Care Education/Training Program
DX: M25.561 Pain in right knee (principal); M25.562 Pain in left knee
CPT/HCPCS: 73562

== ENCOUNTER 2022-02-21 13:00 | Outpatient (RCR) | payer BC, SELFPAY ==
--- NOTE | 2022-02-07 14:57 | HMH.PTOPEV ---
PT Outpatient Evaluation Rehab PT Outpatient Evaluation Start: 02/07/22 13:19 Freq: Status: Active Protocol: Document 02/07/22 14:40 RAIN (Rec: 02/07/22 14:57 VALENTINALENNY [id number]) Electronically Signed By Marcio Collier, PT 02/07/22 14:40 Outpatient Therapy Subjective History Subjective History Patient is a 46 year old female presenting to outpatient PT with reports cervical, right shoulder ( upper trap) and lumbar spine pain. Patient reports intermittent BUE radicular symptoms. Symptoms are chronic and insidious in nature. Main complaint is cervical and R upper trapezius pain. Patient has previously been seen in pain management, where she has received multiple injections that have provided some relief. Comorbidities include hx of L partial knee replacement and multiple R knee scopes. Chief Complaint Pain,Spasms,Stiff,Paresthesia Symptom Type Ache,Numbness,Tingling Symptoms Relieved By Heat,Prescription Meds Symptoms Aggravated By Sitting,Standing,Bending/ Stooping,Physical Activity, Walking,Lifting Prior Functional Limitations None Current Functional Limitations Reaching,Lifting,Housework, Sleeping,Standing,Walking, Bending/Stooping Symptom Description Constant but Variable Level of pain today (0-10) 6 Pain scale - at its best (0-10) 5 Pain scale - at its worst (0-10) 8 Cervical Eval Palpation Cervical Muscles R Suboccipital,R CT Junction,R Upper Trapezius Cervical/Thoracic Palpation Findings Tenderness,Spasm,Trigger Point Posture Head/C-Spine Posture Sitting Position Extended Head/C-Spine Posture Standing Position Neutral Position Flexibility Deficits Upper Trapezius Muscle Length (R) Moderate Tightness,(L) Moderate Tightness Pectoralis Minor Muscle Length (R) Moderate Tightness,(L) Moderate Tightness Passive Joint Mobility Cervical PIVM Dec: R OA L OA R AA L AA R C2/3 L C2/3
== END 2022-02-21 13:05 | disposition home or self-care (01) ==
LOC: PT 13:00
PROVIDERS: PCP Family Medicine; Visit Provider Student in an Organized Health Care Education/Training Program
DX: M54.2 Cervicalgia (principal); M54.50 Low back pain, unspecified; M25.511 Pain in right shoulder
CPT/HCPCS: 97010; 97012; 97014; 97110; 97163; G0283

== ENCOUNTER → 2022-06-11 13:11 | Outpatient (POV) | payer BC, SELFPAY ==
[2022-06-11 13:27] VITALS: BP 154/103; PULSE 75; RESP 18; O2SAT 99; BMI 36.6
--- NOTE | 2022-06-11 13:32 | EXP.PAIN.SOA ---
[facility] Pain Management SOAP Note Subjective:: Patient is a pleasant 46-year-old female who presents today for follow-up and medication refill. We are currently treating the patient for degenerative disc disease of cervical spine with cervical radiculopathy symptoms, chronic low back pain, bilateral sacroiliitis, myofascial pain. Today she rates her pain a 2 out of 10. Patient denies any new pain location however she states that she did recently have a fall a couple weeks ago where she landed on both her knees. Patient did just recently have a right knee replacement on March 26. Patient does states she continues to have chronic neck pain that radiates into her upper extremities and frequently requires massages to get any relief. Patient describes this as a aching sensation that is worse with increased activity or range of motion. Patient does take Lyrica 150 mg twice a day and Celebrex 200 mg daily. Patient denies any side effects from these medications. She is requesting a refill on her Lyrica. Patient is currently still seeing physical therapy and doing well. Patient does have a left partial knee replacement from approximately 7 years ago. Patient does state that she thinks that she would benefit from a breast reduction to help with her back pain. She is asking for any referrals at today's visit. Her Malik is [phone]. It is been reviewed and appropriate. Review of Systems: General: No recent weight changes, no fever, no sleep disturbances Respiratory: No cough, no shortness of air, no recurring pulmonary infections Cardiovascular/peripheral vascular: No chest pain, no palpitations, no edema, no shortness of breath Gastrointestinal: No new onset incontinence, normal bowel movements reported Genitourinary: No new onset incontinence Musculoskeletal: Upper back/neck pain, shoulder pain Psychiatric: [Normal mood/affect] Neurological: [Denies weakness in extremities], [denies balance issues] Objective:: Physical Exam: General: Alert and oriented x3, no acute distress, pleasant and cooperative Lungs: Respirations even and unlabored, symmetrical chest expansion Eyes: PERRL Musculoskeletal: Flexion and extension of cervical [spine] somewhat guarded secondary to pain, [antalgic gait noted] point tenderness along bilateral cervical paraspinous and bilateral trapezius muscles Neurological: Speech clear, no gross sensory deficit Assessment:: Degenerative disc disease of cervical spine with cervical radiculopathy symptoms, chronic low back pain, bilateral sacroiliitis, myofascial pain of bilateral cervical paraspinous and bilateral trapezius Plan:: Patient is experiencing worsening upper back/neck pain during today's visit. She did have limited range of motion of her cervical spine and positive point tenderness along her bilateral cervical paraspinous and bilateral trapezius muscles during today's exam. Patient previously had trigger point injections that provided significant improvement lasting several months. I have discussed with the patient that she may benefit for repeat injections to the sites. Risk and benefits were discussed with the patient. She would like to proceed forward with this plan of care. I will refill the patient's pregabalin 150 mg twice a day and provide a 1 month supply of this medication. I will also send in a referral for plastic surgery for breast reduction evaluation. We will schedule the patient for TPI of bilateral cervical paraspinous and bilateral trapezius muscles. Patient has been instructed to contact the clinic with any concerns before the next appointment. Dr. Lopez has reviewed this note and agrees with this plan of care. This note was dictated using voice recognition software and make contain errors or omissions. [facility] Disclaimer: The information contained in this section may have been updated after the patient was seen, as this information can be updated by other users. Social History Smoking Status: Never s
== END | disposition home or self-care (01) ==
PROVIDERS: PCP Family Medicine; Visit Provider Nurse Practitioner Family
DX: M50.10 Cervical disc disorder with radiculopathy, unspecified cervical region (principal); M46.1 Sacroiliitis, not elsewhere classified; M54.50 Low back pain, unspecified; G89.29 Other chronic pain; M79.18 Myalgia, other site
CPT/HCPCS: 99212; G0463

== ENCOUNTER → 2022-06-17 11:44 | Day surgery (SDC) | payer BC, SELFPAY ==
[2022-06-17 12:03] VITALS: BP 148/96; PULSE 81; RESP 18; TEMP 36.6; O2SAT 97; BMI 34.7
[2022-06-17 12:26] VITALS: BP 162/105; PULSE 83; RESP 18; O2SAT 99
--- NOTE | 2022-06-17 14:22 | EXP.PAIN.PRO ---
Procedure Date: 06/17/22 Time: 10:45 Anesthesiologist:: Karsten Payton CRNA Complications:: None Pre-procedure Diagnosis:: Myofascial pain posterior cervical paraspinous muscles as well as bilateral trapezius muscle Post-procedure Diagnosis:: Same Indications for Procedure:: Patient is a very pleasant 46-year-old patient come to see us today for myofascial pain cervical posterior paraspinous as well as bilateral trapezius muscles. She has point tenderness in the posterior cervical area as well as bilateral trapezius muscles. Procedure Details:: Details of the procedure explained to the patient. The patient was taken to procedure room placed in sitting position. The area over the posterior cervical spine was cleaned using chlorhexidine as a cleansing solution. Bilateral trapezius muscles were cleansed as well. Using a 22-gauge inch and half needle 2 separate areas of the bilateral posterior cervical paraspinous muscles were injected with 1.5 mL of 1% lidocaine and a total of 20 mg of Depo-Medrol. 2 separate areas on the bilateral trapezius muscles was injected in the same fashion. Patient tolerated procedure without difficulty. There are no complications. Plan and Disposition:: Patient was discharged without incident.
== END | disposition home or self-care (01) ==
PROVIDERS: PCP Family Medicine; Visit Provider Nurse Anesthetist, Certified Registered
DX: M79.12 Myalgia of auxiliary muscles, head and neck
CPT/HCPCS: 20552; J1040

== ENCOUNTER 2022-08-01 19:24 | Emergency (ER) | payer BC, SELFPAY ==
[2022-08-01 19:35] VITALS: BP 147/91; PULSE 84; RESP 18; TEMP 37.1; O2SAT 99; BMI 36.6
--- NOTE | 2022-08-01 20:03 | EXP.UTC ---
Discharge Plan Disposition Patient Disposition: Home, Self-Care Condition: Good Prescriptions Prescriptions: New cefdinir 300 mg capsule 300 mg PO BID Qty: 20 0RF guaifenesin [Mucinex] 600 mg tablet extended release 12hr 600 mg PO BID PRN (Reason: cough) Qty: 20 0RF methylprednisolone [Medrol (Mikey)] 4 mg tablets,dose pack See Rx Instructions .Route .COMPLEX 6 Days Qty: 21 0RF Rx Instructions: taper pack; No Action omeprazole 40 mg capsule,delayed release(DR/EC) 1 tab PO DAILY 30 Days Qty: 30 celecoxib 200 mg capsule 1 tab PO DAILY 30 Days Qty: 30 duloxetine 60 mg capsule,delayed release(DR/EC) 60 mg PO DAILY guaifenesin 600 MG tablet extended release 12hr 1 - 2 tab PO Q12HP PRN (Reason: Congestion) Qty: 20 0RF tizanidine 4 MG tablet 4 mg PO HS baclofen 10 MG tablet 10 mg PO BID pregabalin 150 MG capsule 150 mg PO BID Qty: 60 2RF Referrals Follow up/Referrals: Doron Fine MD [Primary Care Provider] - See instructions Activity Restrictions/Add. Instructions Additional Instructions/Restrictions: Start antibiotic today. Be sure to complete entire prescription even if feeling better Monitor temp. Tylenol every 4 hours as needed and / or ibuprofen every 6 hours as needed ( As long as your primary care physician has told you that it ok to take both. For fever/aches/pains ER if no less than 101 despite Tylenol or Motrin Humidifier/vaporizer or hot steamy shower Inhaler every 4-6 hours as needed like we discussed. If unsure how to use it, ask pharmacist to demonstrate how. Should help open airways and improve cough, wheezing, and shortness of breath Mucinex during the day for your cough Be sure to drink lots of water. *Start steroid today. Helps with inflammation therefore, cough and wheezing. Follow directions on the package. Reviewed side effects. Patient reports taking them before. Follow up IMMEDIATELY for new or worsening of symptoms OR no noticeable improvement over the next 48-72 hours. 911 immediately for any life threatening symptoms such as chest pain or difficulty breathing Clinical Impressions Clinical Impression: Otitis media Qualifiers: Otitis media type: unspecified Laterality: bilateral Qualified Code(s): H66.93 - Otitis media, unspecified, bilateral Stand Alone Forms Stand Alone Forms: Work/School Release Instructions Patient Instructions: Middle Ear Infection, Cough, DI for Fever (Symptom) -- Adult Discharge ED Provider: Shayy Quiroz [facility] General Stated complaint: sore throat, body aches, cough Mode of Arrival: Ambulatory Source of Information: Patient Limitations: No Limitations Time Seen by Provider: 08/01/22 20:03 Description of Symptoms (Recalled from Triage Doc. by RN): PATIENT C/O SORE THROAT, CHILLS, COUGH WITH BROWN MUCOUS, AND BODY ACHES SINCE YESTERDAY HEENT Symptoms (Recalled from RN notes): Yes Resp Symptoms (Recalled from RN notes): No Skin Symptoms (Recalled from RN notes): No MS Symptoms (Recalled from RN notes): No Functional Status (Recalled from RN notes): WNL History of Present Illness Provider Complaint: Patient states that she started feeling bad yesterday States that she has been having fever bad sore throat, pain and pressure in both ears, body aches, chills and cough States that at times she is coughing up some mucous Statse that this evening she was still not feeling well and worried that she may have strep throat or flu States that also has been having pain and pressure in both ears for about a week Related Data Home Medications Medication Instructions Recorded Confirmed celecoxib 200 mg capsule 1 tab PO DAILY FIBRO 30 days #30 10/07/18 06/17/22 caps omeprazole 40 mg capsule,delayed 1 tab PO DAILY GERD 30 days #30 10/07/18 06/17/22 release caps duloxetine 60 mg capsule,delayed 60 mg PO DAILY . 03/11/21 06/17/22 release baclofen 10
[2022-08-01 20:04] LABS: UTC Influenza A Antigen Negative (Negative); UTC Strep Screen (Rapid) Negative (Negative)
[2022-08-01 20:05] LABS: UTC Influenza B Antigen Negative (Negative)
[2022-08-01 20:08] VITALS: BP 147/91; PULSE 84; RESP 18; TEMP 37.1; O2SAT 99
== END 2022-08-01 20:22 | disposition home or self-care (01) ==
PROVIDERS: Emergency Provider Nurse Practitioner; PCP Family Medicine
DX: H66.93 Otitis media, unspecified, bilateral (principal)
CPT/HCPCS: 87804; 87880; 99212; 99213; C9803; G0463; U0003; U0005

== ENCOUNTER → 2022-08-14 11:52 | Outpatient (CLI) | payer BC, SELFPAY ==
--- NOTE | 2022-08-14 11:57 | XR_ITS ---
FINAL REPORT CLINICAL HISTORY: BRONCHITIS COMPARISON: 09/23/2021 FINDINGS: Two views of the chest were obtained. The heart size and pulmonary vascularity are within normal limits. The mediastinum is normal. No acute pulmonary abnormality is identified. There is no pneumothorax. The bony thorax is intact. IMPRESSION: No active cardiopulmonary disease. Reviewed, Interpreted and Dictated by Thien Sherman III, MD Transcribed by Jasmyn Leyva Authenticated and [facility]
== END ==
LOC: RAD 11:53
PROVIDERS: PCP Physician Assistant; Visit Provider Physician Assistant
DX: J40 Bronchitis, not specified as acute or chronic (principal)
CPT/HCPCS: 71046

== ENCOUNTER → 2022-09-05 08:09 | Outpatient (CLI) | payer BC, SELFPAY ==
--- NOTE | 2022-09-05 09:12 | MM_ITS ---
PROCEDURE INFORMATION: Exam: MG Bilateral Screening 3D Mammography Exam date and time: 09/05/2022 9:15 AM Age: 46 years old Clinical indication: Screening mammogram TECHNIQUE: Imaging protocol: Bilateral Screening tomosynthesis and 2D mammography including computer-aided detection (CAD) when performed. COMPARISON: No relevant prior studies available. FINDINGS: MAMMOGRAPHY: Breast composition: There are scattered areas of fibroglandular density. Mass: 0.8 cm mass within the outer posterior right breast, not well-delineated on CC but probably projecting laterally should be further assessed with spot views in CC/MLO projection. Ultrasound should also be performed. 1 cm mass within the lower inner anterior right breast should be further assessed with spot views in CC/MLO projection. Ultrasound should also be performed. Architectural distortion: No new or suspicious architectural distortion. Calcifications: No new or suspicious calcifications are present Asymmetric density: No new or suspicious asymmetric density is present Skin thickening: None. Axillary adenopathy: None. Other findings: Evidence of old injury of the right breast as described in clinical history suggesting remote hematoma and fat necrosis IMPRESSION: 1. 0.8 cm mass within the outer posterior right breast, not well-delineated on CC but probably projecting laterally should be further assessed with spot views in CC/MLO projection. Ultrasound should also be performed. 2. 1 cm mass within the lower inner anterior right breast should be further assessed with spot views in CC/MLO projection. Ultrasound should also be performed. ASSESSMENT: BI-RADS category 0: Incomplete-need additional imaging evaluation
== END ==
LOC: RT 08:09
PROVIDERS: PCP Physician Assistant; Visit Provider Physician Assistant
DX: Z12.31 Encounter for screening mammogram for malignant neoplasm of breast (principal); J40 Bronchitis, not specified as acute or chronic
CPT/HCPCS: 77063; 77067; 94060; 94726; 94729

== ENCOUNTER → 2022-09-11 11:04 | Outpatient (POV) | payer BC, SELFPAY ==
--- NOTE | 2022-09-11 11:12 | EXP.PAIN.SOA ---
[facility] Pain Management SOAP Note Subjective:: Patient is a pleasant 46-year-old female who presents today for follow-up and medication refill.? We are currently treating the patient for degenerative disc disease of cervical spine with cervical radiculopathy symptoms, chronic low back pain, bilateral sacroiliitis, myofascial pain.? Today she rates her pain a 5 out of 10.? Patient denies any new trauma or injury. Patient denies any change in location or type of pain she experiences. Patient states that she is experiencing more neck pain along the right side that does radiate up. She does describe this as a popping, aching sensation that is worse with increased activity or range of motion. Patient has had trigger point injections at these locations with her last one on 06/17/2022. Patient states these did provide significant improvement for couple of weeks. She continues to experience significant pain throughout her joints however she has been tested for rheumatoid arthritis and had no significant findings. She did actually go to see a completions manager as well. She is concerned that there is still something going on to be causing her so much pain and swelling in her joints. Patient did have a right knee replacement on March 26.? Patient does get frequent massages to help relieve some pain. She is currently managed with Lyrica 150 mg twice a day and Celebrex 200 mg daily.? Patient denies any side effects from these medications.? She is requesting a refill on her Lyrica.? She has been to physical therapy after her knee surgery and did have significant relief. She is asking whether or not if it would benefit her to go again for her neck pain. Patient does have a left partial knee replacement from approximately 7 years ago.? Her Malik is reviewed and appropriate. Review of Systems: General: No recent weight changes, no fever, no sleep disturbances Respiratory: No cough, no shortness of air, no recurring pulmonary infections Cardiovascular/peripheral vascular: No chest pain, no palpitations, no edema, no shortness of breath Gastrointestinal: No new onset incontinence, normal bowel movements reported Genitourinary: No new onset incontinence Musculoskeletal: Neck pain, generalized joint pain Psychiatric: [Normal mood/affect] Neurological: [Denies weakness in extremities], [denies balance issues] Objective:: Physical Exam: General: Alert and oriented x3, no acute distress, pleasant and cooperative Lungs: Respirations even and unlabored, symmetrical chest expansion Eyes: PERRL Musculoskeletal: Flexion and extension of cervical [spine] somewhat guarded secondary to pain, [antalgic gait noted] Neurological: Speech clear, no gross sensory deficit Assessment:: Degenerative disc disease of cervical spine with cervical radiculopathy symptoms, chronic low back pain, bilateral sacroiliitis, myofascial pain Plan:: Patient continues to experience significant pain in her neck as well as generalized joints. Patient did have limited range of motion of her cervical spine during today's visit. Patient has previously had trigger point injections that did provide significant relief and I have discussed with her that she may benefit from repeat injections however at this time she would like to wait. I will send her for a neurosurgery consult as well as order new physical therapy evaluation and treatment for her neck and knee pain. We will refill her pregabalin 150 mg twice a day and provide a 3-month supply of this medication. Patient will return to clinic in 3 months for reevaluation of symptoms, medication refill and follow-up. Patient has been instructed to contact the clinic with any concerns before the next appointment. Dr. Lopez has reviewed this note and agrees with this plan of care. This note was dictated using voice recognition software and make contain errors or omissions. [facility] Disclaimer: The information contained in this section may have been updated after the pa
[2022-09-11 11:20] VITALS: BP 149/99; PULSE 77; RESP 18; O2SAT 98; BMI 37.3
== END | disposition home or self-care (01) ==
PROVIDERS: PCP Family Medicine; Visit Provider Nurse Practitioner Family
DX: M50.10 Cervical disc disorder with radiculopathy, unspecified cervical region (principal); G89.29 Other chronic pain; M46.1 Sacroiliitis, not elsewhere classified; M79.18 Myalgia, other site
CPT/HCPCS: 99212; G0463

== ENCOUNTER → 2022-09-24 14:25 | Outpatient (CLI) | payer BC, SELFPAY ==
--- NOTE | 2022-09-24 14:30 | MR_ITS ---
FINAL REPORT CLINICAL HISTORY: NECK PAIN ddd COMPARISON: May 24, 2021 FINDINGS: Multiplanar MR imaging of the cervical spine was performed without contrast. On the sagittal T2-weighted images, disc degeneration is seen throughout. There is mild kyphosis centered at C4. There is no evidence of fracture. The vertebral alignment is normal. The cervical spinal cord has an unremarkable appearance without evidence of mass, edema or syrinx. No significant canal stenosis is identified. The cervicomedullary junction is normal. C2-3: There is no significant canal stenosis or neural foraminal narrowing. C3-4: An annular disc bulge is present with bilateral uncovertebral osteophytes. There is a right foraminal disc protrusion with severe right and moderate left neural foraminal narrowing. C4-5: A disc osteophyte complex is present with severe bilateral neural foraminal narrowing. C5-6: A disc osteophyte complex is present with severe bilateral neural foraminal narrowing. C6-7: A disc osteophyte complex is present with moderate bilateral neural foraminal narrowing. C7-T1: An annular disc bulge is present. IMPRESSION: Disc degeneration throughout with spondylosis and multilevel, moderate to severe, neural foraminal narrowing and a disc protrusion at C3-4. Overall stable from the prior exam. Reviewed, Interpreted and Dictated by Thien Sherman III, MD Transcribed by Verona Mcbride Authenticated and [facility]
== END ==
LOC: RAD 14:26
PROVIDERS: PCP Family Medicine; Visit Provider Nurse Practitioner Family
DX: M54.2 Cervicalgia (principal)
CPT/HCPCS: 72141; 76376

== ENCOUNTER → 2022-10-08 11:00 | Outpatient (POV) | payer BC, SELFPAY ==
[2022-10-08 11:28] VITALS: BP 143/92; PULSE 82; RESP 18; O2SAT 97; BMI 37.3
--- NOTE | 2022-10-08 12:07 | EXP.PAIN.SOA ---
[facility] Pain Management SOAP Note Subjective:: Patient is a pleasant 46-year-old female who presents today for follow-up of cervical MRI. We are currently treating the patient for degenerative disc disease of cervical spine with cervical radiculopathy symptoms, chronic low back pain with lumbar radiculopathy symptoms, bilateral sacroiliitis, myofascial pain, right knee pain. Today she rates her pain a 8 out of 10. Patient denies any new trauma or injury. She states she continues to have allover joint pain along with her significant neck pain. She does describe this as an aching, throbbing sensation with occasional popping that is worse with increased activity or range of motion. She does state this pain is continuous and interferes with her ability to perform activities of daily living such as cooking or cleaning or even working. Patient has had trigger point injections however they have not provided significant relief. Patient states she has recently been to the doctor who diagnosed her as perimenopausal. She does feel like she is just being hit by all sides of symptoms and has generalized joint pain. At our last visit we did send for a neurosurgery consult however she states she has not yet heard from this office. Patient was also ordered physical therapy for her neck and knee pain however she states she has not started this yet. She states she was at work when they initially wanted to start her PT and that she is planning on stopping by after our visit today. Patient is currently managed with Lyrica 150 mg twice a day and Celebrex 200 mg daily. Patient denies any side effects from these medications. At our last visit we did just send in refills and she does not need any additional. Her Malik is [phone]. Its been reviewed and appropriate. Review of Systems: General: No recent weight changes, no fever, no sleep disturbances Respiratory: No cough, no shortness of air, no recurring pulmonary infections Cardiovascular/peripheral vascular: No chest pain, no palpitations, no edema, no shortness of breath Gastrointestinal: No new onset incontinence, normal bowel movements reported Genitourinary: No new onset incontinence Musculoskeletal: Neck pain, joint pain, right knee pain Psychiatric: [Normal mood/affect] Neurological: [Denies weakness in extremities], [denies balance issues] Objective:: Physical Exam: General: Alert and oriented x3, no acute distress, pleasant and cooperative Lungs: Respirations even and unlabored, symmetrical chest expansion Eyes: PERRL Musculoskeletal: Flexion and extension of cervical [spine] somewhat guarded secondary to pain, [antalgic gait noted] Neurological: Speech clear, no gross sensory deficit CLINICAL HISTORY: NECK PAIN? ddd COMPARISON: May 24, 2021 FINDINGS: Multiplanar MR imaging of the cervical spine was performed without contrast.? On the sagittal T2-weighted images, disc degeneration is seen throughout.? There is mild kyphosis centered at C4.? There is no evidence of fracture.? The vertebral alignment is normal. The cervical spinal cord has an unremarkable appearance without evidence of mass, edema or syrinx.? No significant canal stenosis is identified.? The cervicomedullary junction is normal.? ? C2-3:? There is no significant canal stenosis or neural foraminal narrowing.? C3-4: An annular disc bulge is present with bilateral uncovertebral osteophytes.? There is a right foraminal disc protrusion with severe right and moderate left neural foraminal narrowing. C4-5:? A disc osteophyte complex is present with severe bilateral neural foraminal narrowing.? C5-6:? A disc osteophyte complex is present with severe bilateral neural foraminal narrowing.? C6-7:? A disc osteophyte complex is present with moderate bilateral neural foraminal narrowing.? C7-T1:? An annular disc bulge is present. IMPRESSION: Disc degeneration throughout with spondylosis and multilevel, moderate to severe, neural foraminal narrowing
== END ==
PROVIDERS: PCP Family Medicine; Visit Provider Nurse Practitioner Family
DX: M50.123 Cervical disc disorder at C6-C7 level with radiculopathy (principal); M54.16 Radiculopathy, lumbar region; M46.1 Sacroiliitis, not elsewhere classified; M79.10 Myalgia, unspecified site; M25.561 Pain in right knee
CPT/HCPCS: 99212; G0463

== ENCOUNTER 2022-10-14 09:02 | Day surgery (SDC) | payer BC, SELFPAY ==
[2022-10-14 09:19] VITALS: BP 134/102; PULSE 94; RESP 18; TEMP 36.2; O2SAT 98; BMI 36.6
[2022-10-14 09:27] VITALS: BP 184/100; PULSE 85; RESP 18; O2SAT 97
[2022-10-14 09:28] VITALS: BP 184/100; PULSE 85; RESP 18; O2SAT 97
--- NOTE | 2022-10-14 09:33 | P.PCN_ITS ---
Procedure Date: 10/14/22 Time: 09:25 Anesthesiologist:: Karsten Payton CRNA Complications:: None Pre-procedure Diagnosis:: Degenerative disc cervical spine multilevels. Cervical radiculopathy. Post-procedure Diagnosis:: Same. Indications for Procedure:: Very pleasant 46-year-old female that comes our clinic today for repeat cervical epidural steroid injection C6-7 level. Patient has multiple level disc bulge cervical spine. Spinal stenosis. Cervical radiculopathy. Patient has neuros urgery consultation on 11/04/2022. She will return to see us accordingly Procedure Details:: Procedure:Cervical epidural steroid injection Informed consent was obtained and the risks and benefits of the procedure were explained to the patient. The patient was taken to the procedure room and noninvasive monitors placed, including noninvasive blood pressure cuff and pulse oximeter. The neck was prepped using Chloraprep as a cleansing solution. The C6- C7 interspace was viewed using fluroscopy. The skin and subcutaneous tissues were anesthetized using lidocaine 1.5% and a 25-gauge needle. After this an 18- gauge Touhy epidural needle was placed into the C6-C7 interspace under fluroscopy guidance and advanced using loss of resistance to air until the epidural space was encountered. After confirmation of needle placement in the epidural space using contrast dye, a solution containing normal saline, 2 mL and Depo-Medrol 80 mg was incrementally injected into the cervical epidural space.~ The patient tolerated the procedure well with no complications. The patient was observed in the Pain Clinic and then discharged home neurologically intact. Plan and Disposition:: Patient was discharged without incident.
[2022-10-14 09:35] VITALS: BP 159/98; PULSE 79; RESP 18; TEMP 36.2; O2SAT 99
== END 2022-10-14 09:36 | disposition home or self-care (01) ==
PROVIDERS: PCP Family Medicine; Visit Provider Nurse Anesthetist, Certified Registered
DX: M50.123 Cervical disc disorder at C6-C7 level with radiculopathy (principal)
CPT/HCPCS: 62321; 62323; J1040; Q9966

== ENCOUNTER → 2022-10-14 14:15 | Outpatient (CLI) | payer BC, SELFPAY ==
--- NOTE | 2022-10-14 14:20 | US_ITS ---
PROCEDURE INFORMATION: Exam: US Right Breast, Complete MG Right Diagnostic Breast Tomosynthesis Exam date and time: 10/14/2022 4:04 PM Age: 46 years old Clinical indication: Patient recalled on the basis of a screening mammogram for further evaluation; Right breast; masses TECHNIQUE: Imaging protocol: Complete ultrasound of all four quadrants of the right breast and the retroareolar regions, including ultrasound of the axilla when performed. Right Diagnostic tomosynthesis and 2D mammography including computer-aided detection (CAD) when performed. Unilateral or bilateral exam. COMPARISON: MG MM DIG SC MAMM UNILAT RT CAD 10/14/2022 2:21 PM FINDINGS: MAMMOGRAPHY: Digital diagnostic spot compression views of the right breast and 90 degree lateral view of the right breast demonstrate normal overlapping fibroglandular structures without persistent mass or asymmetry identified. ULTRASOUND: Sonographic images of the right breast including the retroareolar region, all 4 quadrants and the axilla do not demonstrate any suspicious solid or cystic masses . Subcentimeter benign oil cyst in the right 7 o'clock axis 3 cm from the nipple. Broad area benign fat necrosis in the 10 o'clock axis 5 cm from the nipple better delineated on mammography. No architectural distortion or acoustical shadowing. No skin thickening or axillary adenopathy. IMPRESSION: No mammographic or sonographic evidence of malignancy. Annual bilateral mammographic screening is recommended unless otherwise clinically indicated. ASSESSMENT: BI-RADS Category 2: Benign
== END ==
LOC: RAD 14:15
PROVIDERS: PCP Family Medicine; Visit Provider Physician Assistant
DX: R92.8 Other abnormal and inconclusive findings on diagnostic imaging of breast (principal)
CPT/HCPCS: 76641; 77063; 77067

== ENCOUNTER → 2022-11-14 11:21 | Outpatient (CLI) | payer BC, SELFPAY ==
[2022-11-14 12:12] LABS: Basophils % 0.2 % (0.1-2.0); Eosinophils # 0.1 K/mm3 (0.0-0.4); Hematocrit 33.3 % (37.0-47.0); Hemoglobin 10.3 g/dL (12.2-16.2); Lymphocytes # 1.5 K/mm3 (0.7-4.5); Lymphocytes % 36.5 % (10-50); Mean Corpuscular HGB Conc 30.9 g/dL (31.8-35.4); Mean Corpuscular Hemoglobin 26.3 pg (27.0-31.2); Mean Corpuscular Volume 84.9 fl (81-99); Mean Platelet Volume 6.6 fl (7.4-10.4); Monocytes # 0.3 K/mm3 (0.1-1.0); Monocytes % 6.5 % (1.7-9.3); Neutrophils # 2.2 K/mm3 (1.8-7.8); Neutrophils % 53.8 % (37.0-80.0); Platelet Count 287 K/mm3 (142-424); Red Blood Count 3.93 M/mm3 (4.20-5.40); Red Cell Distribution Width 16.9 % (11.5-17.5); White Blood Count 4.1 K/mm3 (4.8-10.8)
[2022-11-14 12:44] LABS: C-Reactive Protein 1.9 mg/L (0-4)
[2022-11-17 15:05] LABS: Anti-Centromere B Antibodies <0.2 AI (0.0-0.9); Anti-DNA (DS) Ab Qn 1 IU/mL (0-9); Antiscleroderma-70 Antibodies <0.2 AI (0.0-0.9); Sjogren's Anti-SS-A <0.2 AI (0.0-0.9); Sjogren's Anti-SS-B <0.2 AI (0.0-0.9); Smith/RNP Antibodies <0.2 AI (0.0-0.9)
[2022-11-17 20:36] LABS: Antinuclear Antibodies, IFA Negative (.)
[2022-11-19 13:58] LABS: D001-IgE D pteronyssinus <0.10 kU/L (Class 0); D002-IgE D farinae <0.10 kU/L (Class 0); E001-IgE Cat Dander <0.10 kU/L (Class 0); E005-IgE Dog Dander 0.21 kU/L (Class 0/I); E072-IgE Mouse Urine <0.10 kU/L (Class 0); G002-IgE Bermuda Grass 0.17 kU/L (Class 0/I); I006-IgE Cockroach, German <0.10 kU/L (Class 0); Immunoglobulin E, Total 70 IU/mL (6-495); M001-IgE Penicillium chrysogen <0.10 kU/L (Class 0); M002-IgE Cladosporium herbarum <0.10 kU/L (Class 0); M003-IgE Aspergillus fumigatus <0.10 kU/L (Class 0); M006-IgE Alternaria alternata <0.10 kU/L (Class 0); T001-IgE Maple/Box Elder 0.14 kU/L (Class 0/I); T003-IgE Common Silver Birch <0.10 kU/L (Class 0); T006-IgE Cedar, Mountain 0.11 kU/L (Class 0/I); T007-IgE Oak, White 0.16 kU/L (Class 0/I); T008-IgE Elm, American 0.21 kU/L (Class 0/I); T010-IgE Walnut 0.23 kU/L (Class 0/I); T011-IgE Maple Leaf Sycamore 0.15 kU/L (Class 0/I); T014-IgE Cottonwood <0.10 kU/L (Class 0); T015-IgE Ash, White 0.27 kU/L (Class 0/I); T022-IgE Pecan, Hickory <0.10 kU/L (Class 0); T070-IgE White Mulberry <0.10 kU/L (Class 0); W011-IgE Thistle, Russian <0.10 kU/L (Class 0); W014-IgE Pigweed, Common 0.11 kU/L (Class 0/I); W018-IgE Sheep Sorrel 0.27 kU/L (Class 0/I)
== END ==
PROVIDERS: PCP Family Medicine; Visit Provider Internal Medicine Pulmonary Disease
DX: R06.09 Other forms of dyspnea (principal); J84.9 Interstitial pulmonary disease, unspecified; J84.10 Pulmonary fibrosis, unspecified; J45.909 Unspecified asthma, uncomplicated
CPT/HCPCS: 36415; 82785; 85025; 86003; 86038; 86140; 86225; 86235

== ENCOUNTER 2022-11-17 17:27 | Emergency (ER) | payer BC, SELFPAY ==
[2022-11-17 17:35] VITALS: BP 146/87; PULSE 103; RESP 18; TEMP 36.9; O2SAT 98; BMI 35.0
--- NOTE | 2022-11-17 17:50 | EXP.UTC ---
Discharge Plan Disposition Patient Disposition: Home, Self-Care Condition: Good Prescriptions Prescriptions: New amoxicillin 500 mg capsule 500 mg PO TID 7 Days Qty: 21 0RF fluticasone propionate [Flonase Allergy Relief] 50 mcg/actuation spray,suspension 1 - 2 spray intranasal DAILY Qty: 16 0RF Rx Instructions: administer into each nostril No Action omeprazole 40 mg capsule,delayed release(DR/EC) 1 tab PO DAILY 30 Days Qty: 30 celecoxib 200 mg capsule 1 tab PO DAILY 30 Days Qty: 30 duloxetine 60 mg capsule,delayed release(DR/EC) 60 mg PO DAILY atorvastatin 10 mg tablet 10 mg PO DAILY pregabalin 150 MG capsule 150 mg PO BID Referrals Follow up/Referrals: Doron Fine MD [Primary Care Provider] - See instructions Activity Restrictions/Add. Instructions Additional Instructions/Restrictions: *Monitor Temp, Over the counter Motrin or Tylenol as directed/as needed Tylenol every 4 hours and Motrin every 6 hours (as long as your family doctor has told you that you can take it) for fever or pain. and straight to ER if unable to lower temp less than 101.0 after medication given *Warm salt water gargles may help to soothe the throat *Throat Lozenges? *Warm fluids like tea with honey may help to soothe the throat? *Sleep elevated *Humidifier/Vaporizer *Flonase 2 sprays in each nostril daily but be aware that it may take 2-3 days before you notice improvement Your throat swab was sent for culture. Those results are typically sent to your primary care. Be sure to follow up in 2-3 days with your family doctor/primary care physician if no improvement so they can review those result and treat if necessary. If you don?t have a primary care doctor, I recommend you get one but in the mean time, you will have to return to a walk in clinic Follow up IMMEDIATELY for new or worsening symptoms or no Noticeable improvement over the next 48-72 hours. 911 for difficulty breathing or swallowing Clinical Impressions Clinical Impression: Otitis media Stand Alone Forms Stand Alone Forms: Work/School Release Instructions Patient Instructions: Middle Ear Infection Discharge ED Provider: Shayy Quiroz [facility] HPI General Stated complaint: Dizzy, Sore throat, Ear Pain Mode of Arrival: Ambulatory Source of Information: Patient Limitations: No Limitations Time Seen by Provider: 11/17/22 17:50 Description of Symptoms (Recalled from Triage Doc. by RN): PATIENT C/O FEVER, BODY ACHES, SORE THROAT, AND BILATERAL EAR PAIN THAT STARTED STAURDAY HEENT Symptoms (Recalled from RN notes): Yes Resp Symptoms (Recalled from RN notes): No Skin Symptoms (Recalled from RN notes): No MS Symptoms (Recalled from RN notes): No Functional Status (Recalled from RN notes): WNL History of Present Illness Provider Complaint: Patient states that she felt like she had a high fever over the weekend but didnt check her fever, Sore throat bilateral ear pain and pressure and body aches States that she feels like she may have an ear infection or something Related Data Home Medications Medication Instructions Recorded Confirmed celecoxib 200 mg capsule 1 tab PO DAILY Fibromyalgia 30 10/07/18 11/17/22 days #30 caps omeprazole 40 mg capsule,delayed 1 tab PO DAILY GERD 30 days #30 10/07/18 11/17/22 release caps duloxetine 60 mg capsule,delayed 60 mg PO DAILY Fibromyalgia 03/11/21 11/17/22 release atorvastatin 10 mg tablet 10 mg PO DAILY Cholesterol 11/14/22 11/17/22 pregabalin 150 mg capsule 150 mg PO BID Arthritis 11/17/22 11/17/22 Previous Rx's Medication Instructions Recorded amoxicillin 500 mg capsule 500 mg PO TID 7 days #21 caps 11/17/22 fluticasone propionate 50 1 - 2 spray intranasal DAILY #16 11/17/22 mcg/actuation nasal grams spray,suspension (Flonase Allergy Relief) Allergies Allergy/AdvReac Type Severity Reaction Status Date / Time ibuprofen Allergy Verifie
[2022-11-17 17:59] LABS: UTC Strep Screen (Rapid) Negative (Negative)
[2022-11-17 18:39] VITALS: BP 146/87; PULSE 103; RESP 18; TEMP 36.9; O2SAT 98
== END 2022-11-17 18:41 | disposition home or self-care (01) ==
PROVIDERS: Emergency Provider Nurse Practitioner; PCP Family Medicine
DX: H66.93 Otitis media, unspecified, bilateral (principal); R50.9 Fever, unspecified; R07.0 Pain in throat; Z87.891 Personal history of nicotine dependence; J45.909 Unspecified asthma, uncomplicated; K21.9 Gastro-esophageal reflux disease without esophagitis; M79.7 Fibromyalgia; F32.9 Major depressive disorder, single episode, unspecified
CPT/HCPCS: 87880; 99212; 99214; G0463

== ENCOUNTER → 2022-11-21 10:23 | Outpatient (CLI) | payer OTHER, SELFPAY ==
--- NOTE | 2022-11-21 10:29 | XR_ITS ---
FINAL REPORT CLINICAL HISTORY: workers comp, pt caught Lt arm in machine. Pain @ distal humerus radiating down forearm. FINDINGS: Left humerus TWO VIEW FINDINGS: Two views show no evidence of an acute, displaced fracture or dislocation of the visualized bony architecture. The joint spaces appear normal. IMPRESSION: Unremarkable exam. Authenticated and ERN
--- NOTE | 2022-11-21 10:29 | XR_ITS ---
FINAL REPORT CLINICAL HISTORY: workers comp, pt caught Lt arm in machine. Pain @ distal humerus radiating down forearm. FINDINGS: Left forearm TWO VIEW FINDINGS: Two views show no evidence of an acute, displaced fracture or dislocation of the visualized bony architecture. The joint spaces appear normal. IMPRESSION: Unremarkable exam. Authenticated and ERN
== END ==
PROVIDERS: PCP Family Medicine; Visit Provider Emergency Medicine
DX: M79.632 Pain in left forearm (principal); M79.622 Pain in left upper arm; S49.92XA Unspecified injury of left shoulder and upper arm, initial encounter
CPT/HCPCS: 73060; 73090

== ENCOUNTER → 2022-12-31 08:36 | Outpatient (POV) | payer BC, SELFPAY ==
[2022-12-31 09:02] VITALS: BP 150/99; PULSE 74; RESP 18; O2SAT 98; BMI 35.2
--- NOTE | 2022-12-31 09:11 | EXP.PAIN.SOA ---
[facility] Pain Management SOAP Note Subjective:: Patient is a pleasant 47-year-old female who presents today for follow-up and medication refill. We are currently treating the patient for degenerative disc disease of cervical and lumbar spine with cervical and lumbar radiculopathy symptoms, bilateral sacroiliitis, myofascial pain, right knee pain, chronic back pain. Today she rates her pain a 10 out of 10. Patient denies any new trauma or injury. Patient states she continues to experience significant neck pain. She does describe this as a sharp, achy sensation that worsens with increased activity and is experiencing decreased range of motion related to it. She states the pain is often worsened with bending, lifting or twisting. Patient states that it does interfere with her ability to perform activities of daily living such as cooking and cleaning. Patient has gone to Dr. Cortez neurosurgery who was recommending cervical ablation. Patient was put on tramadol 50 mg 3 times daily and states this did help and she is requesting a refill of this medication. Patient is currently managed with Lyrica 150 mg twice a day and Celebrex 200 mg daily. Patient denies any side effects from these medications. She does state that the Celebrex helped some however she thinks that it is not helping as well as it could be. Patient has also been on tizanidine in the past at bedtime and states this did help her sleep and she is requesting a refill. Her Malik is pending during today's visit. Review of Systems: General: No recent weight changes, no fever, no sleep disturbances Respiratory: No cough, no shortness of air, no recurring pulmonary infections Cardiovascular/peripheral vascular: No chest pain, no palpitations, no edema, no shortness of breath Gastrointestinal: No new onset incontinence, normal bowel movements reported Genitourinary: No new onset incontinence Musculoskeletal: Neck pain Psychiatric: [Normal mood/affect] Neurological: [Denies weakness in extremities], [denies balance issues] Objective:: Physical Exam: General: Alert and oriented x3, no acute distress, pleasant and cooperative Lungs: Respirations even and unlabored, symmetrical chest expansion Eyes: PERRL Musculoskeletal: Flexion and extension of cervical [spine] somewhat guarded secondary to pain, [antalgic gait noted] positive Kemps test Neurological: Speech clear, no gross sensory deficit [place] [id number] [place] [address] [address] Magnetic Resonance Report Signed Patient: Jasmyn Pichardo MR#: [id number] : 1975 Acct:[id number] Age/Sex: 46 / F ADM Date: 09/24/22 Loc: RAD Attending Dr: Melissa Stuart APRN Ordering Physician: Melissa Stuart APRN Date of Service: 09/24/22 Procedure(s): MR cervical spine wo con Accession Number(s): [id number] cc: Thien Sherman MD; Doron Fine MD~ FINAL REPORT CLINICAL HISTORY: NECK PAIN? ddd COMPARISON: May 24, 2021 FINDINGS: Multiplanar MR imaging of the cervical spine was performed without contrast.? On the sagittal T2-weighted images, disc degeneration is seen throughout.? There is mild kyphosis centered at C4.? There is no evidence of fracture.? The vertebral alignment is normal. The cervical spinal cord has an unremarkable appearance without evidence of mass, edema or syrinx.? No significant canal stenosis is identified.? The cervicomedullary junction is normal.? ? C2-3:? There is no significant canal stenosis or neural foraminal narrowing.? C3-4: An annular disc bulge is present with bilateral uncovertebral osteophytes.? There is a right foraminal disc protrusion with severe right and moderate left neural foraminal narrowing. C4-5:? A disc osteophyte complex is present with severe bilateral neural foraminal narrowing.? C5-6:? A disc osteophyte complex is present with severe bilateral neural foraminal narrowing.? C6-
== END | disposition home or self-care (01) ==
PROVIDERS: PCP Family Medicine; Visit Provider Nurse Practitioner Family
DX: M50.10 Cervical disc disorder with radiculopathy, unspecified cervical region (principal); M51.16 Intervertebral disc disorders with radiculopathy, lumbar region; M46.1 Sacroiliitis, not elsewhere classified; M79.10 Myalgia, unspecified site; M25.561 Pain in right knee; M54.50 Low back pain, unspecified; G89.29 Other chronic pain; M47.22 Other spondylosis with radiculopathy, cervical region
CPT/HCPCS: 99212; G0463

== ENCOUNTER 2023-01-20 08:13 | Day surgery (SDC) | payer BC, SELFPAY ==
[2023-01-20 08:30] VITALS: BP 131/81; PULSE 79; RESP 18; TEMP 36.4; O2SAT 99; BMI 35.4
[2023-01-20 08:43] VITALS: BP 146/83; PULSE 72; RESP 18; O2SAT 99
--- NOTE | 2023-01-20 08:45 | P.PCN_ITS ---
Procedure Date: 01/20/23 Time: 08:30 Anesthesiologist:: Karsten Payton CRNA Complications:: None Pre-procedure Diagnosis:: Degenerative disc cervical spine multilevels. Cervical radiculopathy. Cervical spondylosis. Post-procedure Diagnosis:: Same. Indications for Procedure:: Very pleasant 47-year-old female comes our clinic today for cervical facet blocks C3-4, C4-5 bilaterally. She complains of posterior cervical neck pain as well as bilateral arm radicular symptoms to the fingers. She rates her pain 7/10. Patient has difficulty with flexion, extension, left and right rotation. Procedure Details:: Informed consent was obtained and the risk and benefits of the procedure was explained to the patient. Patient was taken to the procedure room where noninvasive monitors were placed, including noninvasive blood pressure cuff as well as pulse oximeter. The area over the posterior cervical spine was cleansed using chlorhexidine as a cleansing solution. I anesthetized the skin and subcutaneous tissues with 1% Lidocaine. I placed 25 -gauge spinal needles into the facet joint/ medial branches of C3-4, C4-5 bilaterally. Needle placement was confirmed with fluoroscopy. After confirmation of needle placement, each site was injected with 1 mL of 1% lidocaine and 0.25 % Marcaine and 10 mg of Depo- Medrol. A total of 20 mg of depo medrol was used for bilateral medial branch blocks of C3-4, C4-5 bilaterally. Patient tolerated the procedure without difficulty. There were no complications. Plan and Disposition:: Patient was discharged without incident.
[2023-01-20 08:49] VITALS: BP 126/88; PULSE 84; RESP 18; O2SAT 97
[2023-01-20 08:50] VITALS: BP 126/88; PULSE 84; RESP 18; O2SAT 98
== END 2023-01-20 08:43 | disposition home or self-care (01) ==
PROVIDERS: PCP Family Medicine; Visit Provider Nurse Anesthetist, Certified Registered
DX: M47.892 Other spondylosis, cervical region; M50.10 Cervical disc disorder with radiculopathy, unspecified cervical region
CPT/HCPCS: 64490; 64491; J1040; Q9966

== ENCOUNTER → 2023-02-11 11:01 | Outpatient (POV) | payer BC, SELFPAY ==
--- NOTE | 2023-02-11 11:51 | EXP.PAIN.SOA ---
[facility] Pain Management SOAP Note Subjective:: Patient is a pleasant 47-year-old female who presents today for follow-up of her second cervical medial branch block bilaterally C3-C4 and C4-C5 on 01/20/2023. Bilaterally C3-C4 and C4-C5 on 01/20/2023. We are currently patient we are currently treating the patient for degenerative disc disease of cervical and lumbar spine with cervical and lumbar radiculopathy symptoms, bilateral sacroiliitis, myofascial pain, knee pain, chronic back pain. Today she rates her pain a 5 out of 10. Patient denies any new trauma or injury. She denies any change to location or type of pain she experiences. She does state that she had 90% improvement along her right side and 50% on her left side lasting approximately 2 weeks. She does state today that she feels like she is going back towards her baseline. She does describe her pain as a achy, throbbing sensation that is worse with increased activity. It does affect her ability perform activities of daily living such as cooking and cleaning. She is currently managed with tramadol 50 mg 3 times a day, Lyrica 150 mg twice a day and Celebrex 200 mg daily. She is requesting refills of these medications. Her Malik has been reviewed and is appropriate. Review of Systems: General: No recent weight changes, no fever, no sleep disturbances Respiratory: No cough, no shortness of air, no recurring pulmonary infections Cardiovascular/peripheral vascular: No chest pain, no palpitations, no edema, no shortness of breath Gastrointestinal: No new onset incontinence, normal bowel movements reported Genitourinary: No new onset incontinence Musculoskeletal: Neck pain Psychiatric: [Normal mood/affect] Neurological: [Denies weakness in extremities], [denies balance issues] Objective:: Physical Exam: General: Alert and oriented x3, no acute distress, pleasant and cooperative Lungs: Respirations even and unlabored, symmetrical chest expansion Eyes: PERRL Musculoskeletal: Flexion and extension of cervical [spine] somewhat guarded secondary to pain, [antalgic gait noted] positive Kemps test Neurological: Speech clear, no gross sensory deficit Assessment:: Degenerative disc disease of the cervical and lumbar spine with cervical and lumbar radiculopathy symptoms, bilateral sacroiliitis, myofascial pain, knee pain, chronic back pain Plan:: Patient continues to experience significant pain in her neck that is worse with increased activity. Patient did have a positive Kemps test. Patient has had 2 successful medial branch blocks that provided 50 to 90% improvement. I have discussed with the patient that she may benefit from a cervical RFA bilaterally. Risk and benefits were discussed with the patient and she would like to proceed forward with this plan of care. Patient is not on any blood thinners. I will also refill the patient's tramadol 50 mg 3 times a day, Lyrica 150 mg twice a day and Celebrex 200 mg daily and provide a 1 month supply of this medication. Patient will be scheduled for a cervical RFA bilaterally C3-C4, C4-C5. Patient has been instructed to contact the clinic with any concerns before the next appointment. Dr. Lopez has reviewed this note and agrees with this plan of care. This note was dictated using voice recognition software and make contain errors or omissions. [facility] Disclaimer: The information contained in this section may have been updated after the patient was seen, as this information can be updated by other users. Medical History Allergic rhinitis KEVIN positive Anemia Arthritis Asthma Depression Dyspnea on exertion Fibromyalgia GERD (gastroesophageal reflux disease) Stopped smoking with greater than 20 pack year history Surgical History H/O arthroscopic knee surgery History of tubal ligation Family History Other No significant family history Social History (
[2023-02-11 14:44] VITALS: BP 156/110; PULSE 71; RESP 18; O2SAT 98; BMI 35.8
== END | disposition home or self-care (01) ==
PROVIDERS: Visit Provider Nurse Practitioner Family
DX: M50.10 Cervical disc disorder with radiculopathy, unspecified cervical region (principal); M51.16 Intervertebral disc disorders with radiculopathy, lumbar region; M46.1 Sacroiliitis, not elsewhere classified; M79.10 Myalgia, unspecified site; M25.569 Pain in unspecified knee; M54.50 Low back pain, unspecified; G89.29 Other chronic pain
CPT/HCPCS: 99212; G0463

== ENCOUNTER 2023-03-05 21:18 | Emergency (ER) | payer BC, SELFPAY ==
[2023-03-05 21:50] VITALS: BP 133/96; PULSE 69; RESP 20; TEMP 36.5; O2SAT 97; BMI 35.8
--- NOTE | 2023-03-05 22:56 | PC.NURSE ---
checked on pt just waiting for stitches received a warm blanket, call light at bs
--- NOTE | 2023-03-05 23:08 | CT_ITS ---
PROCEDURE INFORMATION: Exam: CT Left Lower Extremity With Contrast, Knee Exam date and time: 03/05/2023 11:48 PM Age: 47 years old Clinical indication: Pain; Prior surgery; Surgery date: 6+ months; Surgery type: Left knee replacement; Additional info: Possible traumatic arthrotomy TECHNIQUE: Imaging protocol: CT of the left lower extremity with intravenous contrast was performed. Exam focused on the knee. Radiation optimization: All CT scans at this facility use at least one of these dose optimization techniques: automated exposure control; mA and/or kV adjustment per patient size (includes targeted exams where dose is matched to clinical indication); or iterative reconstruction. Contrast material: ISOVUE; Contrast volume: 75 ml; Contrast route: IV; REPORTING DATA: Count of CT and Cardiac NM exams in prior 12 months: This patient has received 0 known CTs and 0 known cardiac nuclear medicine studies in the 12 months prior to the current study. COMPARISON: CR XR KNEE LT 3V 01/30/2022 11:26 AM FINDINGS: Limitations: Streak artifact - mild. Bones/joints: No displaced fracture. Total knee arthroplasty. No definite hardware loosening. No dislocation. Small joint effusion with mild synovial enhancement. Soft tissues: Mild stranding within subcutaneous tissues. Few small soft tissue calcifications. IMPRESSION: 1. Mild stranding within subcutaneous tissues may represent cellulitis in proper clinical setting. Clinical correlation is needed. 2. Small joint effusion with mild synovial enhancement, nonspecific. Septic arthritis not excluded. Consider arthrocentesis.
--- NOTE | 2023-03-05 23:09 | [facility].EDGENADL ---
Discharge Plan Disposition Patient Disposition: Home, Self-Care Condition: Good Prescriptions Prescriptions: New cephalexin 500 mg capsule 500 mg PO Q6H 5 Days Qty: 20 0RF No Action omeprazole 40 mg capsule,delayed release(DR/EC) 1 tab PO DAILY 30 Days Qty: 30 budesonide-formoterol [Symbicort] 80-4.5 mcg/actuation HFA aerosol inhaler 1 puff inhalation DIRECTED albuterol sulfate 90 mcg/actuation HFA aerosol inhaler 1 puff inhalation DIRECTED duloxetine 60 mg capsule,delayed release(DR/EC) 60 mg PO DAILY atorvastatin 10 mg tablet 10 mg PO DAILY fluticasone propionate [Flonase Allergy Relief] 50 mcg/actuation spray,suspension 1 - 2 spray intranasal DAILY Rx Instructions: administer into each nostril diclofenac sodium 50 mg tablet,delayed release (DR/EC) 50 mg PO BID tizanidine [Zanaflex] 4 mg tablet 4 mg PO HS Qty: 30 0RF celecoxib 200 mg capsule 1 tab PO DAILY 30 Days Qty: 30 0RF tramadol 50 mg tablet 50 mg PO BID Qty: 60 0RF pregabalin 150 MG capsule 150 mg PO BID Qty: 60 0RF Referrals Follow up/Referrals: Doron Fine MD [Primary Care Provider] - See instructions Activity Restrictions/Add. Instructions Additional Instructions/Restrictions: Please follow-up with your primary care provider. Please return to the emergency department if you develop any new or worsening symptoms or become concerned for your health. Please have sutures taken out in the next 7 to 10 days. Please take antibiotics as prescribed. Please monitor for signs of infection. Follow wound care instructions as discussed. Clinical Impressions Clinical Impression: Anemia Laceration of knee without foreign body Qualifiers: Encounter type: initial encounter Laterality: left Qualified Code(s): S81.012A - Laceration without foreign body, left knee, initial encounter Instructions Patient Instructions: DI for Laceration Repair Discharge ED Provider: Jamel Schuler Adult HPI General Chief complaint: Wound/Laceration Stated complaint: AO08/24@1600 LT knee lac Time Seen by Provider: 03/05/23 22:59 Mode of Arrival: Ambulatory Source of Information: Patient Limitations: No Limitations Description of Symptoms (Recalled from ER Triage Doc. by RN): Patient reports she was guiding a horse and walked into a trailer lacteration present to left knee. History of Present Illness HPI narrative: 47-year-old female history of prior left total knee replacement presents with laceration at the lateral aspect of the left knee sustained while riding her horse. She reports that she scraped against a metal trailer and sustained a laceration. She is unsure if there was any puncturing injury. This happened earlier today. She is up-to-date on tetanus. Related Data Home Medications Medication Instructions Recorded Confirmed omeprazole 40 mg capsule,delayed 1 tab PO DAILY GERD 30 days #30 10/07/18 02/11/23 release caps duloxetine 60 mg capsule,delayed 60 mg PO DAILY Fibromyalgia 03/11/21 02/11/23 release atorvastatin 10 mg tablet 10 mg PO DAILY Cholesterol 11/14/22 02/11/23 albuterol sulfate 90 mcg/actuation 1 puff inhalation DIRECTED 11/21/22 02/11/23 aerosol inhaler Breathing problems budesonide-formoterol HFA 80 1 puff inhalation DIRECTED 11/21/22 02/11/23 mcg-4.5 mcg/actuation aerosol Breathing problems inhaler (Symbicort) fluticasone propionate 50 1 - 2 spray intranasal DAILY 12/31/22 02/11/23 mcg/actuation nasal ALLERGIES spray,suspension (Flonase Allergy Relief) diclofenac sodium 50 mg 50 mg PO BID . 01/20/23 02/11/23 tablet,delayed release Previous Rx's Medication Instructions Recorded tizanidine 4 mg tablet (Zanaflex) 4 mg PO HS . #30 tabs 02/04/23 celecoxib 200 mg capsule 1 tab PO DAILY Fibromyalgia 30 02/11/23 days #30 caps pregabalin 150 mg capsule 150 mg PO BID Arthritis #60 caps 02/11/23 tramadol 50 mg tablet 50 mg
[2023-03-05 23:47] LABS: Basophils % 0.3 % (0.1-2.0); Eosinophils # 0.2 K/mm3 (0.0-0.4); Eosinophils % 2.9 % (0.1-12.0); Hematocrit 34.9 % (37.0-47.0); Hemoglobin 10.9 g/dL (12.2-16.2); Lymphocytes % 31.3 % (10-50); Mean Corpuscular HGB Conc 31.3 g/dL (31.8-35.4); Mean Corpuscular Hemoglobin 26.5 pg (27.0-31.2); Mean Corpuscular Volume 84.7 fl (81-99); Mean Platelet Volume 7.4 fl (7.4-10.4); Monocytes # 0.4 K/mm3 (0.1-1.0); Neutrophils # 3.7 K/mm3 (1.8-7.8); Neutrophils % 59.6 % (37.0-80.0); Platelet Count 305 K/mm3 (142-424); Red Blood Count 4.12 M/mm3 (4.20-5.40); Red Cell Distribution Width 17.8 % (11.5-17.5); White Blood Count 6.3 K/mm3 (4.8-10.8)
[2023-03-05 23:51] LABS: Alanine Aminotransferase 21 U/L (12-78); Albumin Level 4.3 g/dl (3.5-5.0); Albumin/Globulin Ratio 1.3 (1.1-1.8); Alkaline Phosphatase 102 U/L (38-126); Aspartate Amino Transferase 34 U/L (14-36); Bilirubin,Total 0.2 mg/dl (0.2-1.3); Blood Urea Nitrogen 11 mg/dl (7-17); Calcium 8.7 mg/dl (8.4-10.2); Carbon Dioxide 30 mmol/L (22.0-30.0); Chloride 100 mmol/L (98-107); Creatinine Clearance Estimated 139 mL/min (50-200); Estimated Glomerular Filt Rate 90 ml/min (>60); GFR (African American) 109 ML/MIN (>60); Globulin 3.4 g/dL (1.3-3.2); Glucose 84 mg/dl (74-100); Sodium 139 mmol/L (136-145); Total Protein,Serum 7.7 g/dl (6.3-8.2)
[2023-03-06 00:47] VITALS: BP 120/86; PULSE 68; RESP 18; TEMP 36.8
== END 2023-03-06 01:23 | disposition home or self-care (01) ==
PROVIDERS: Emergency Provider Emergency Medicine; PCP Family Medicine
DX: S81.012A Laceration without foreign body, left knee, initial encounter (principal); D64.9 Anemia, unspecified; J45.909 Unspecified asthma, uncomplicated; F32.A Depression, unspecified; K21.9 Gastro-esophageal reflux disease without esophagitis; Z87.891 Personal history of nicotine dependence; W26.8XXA Contact with other sharp object(s), not elsewhere classified, initial encounter
CPT/HCPCS: 12032; 73701; 80053; 85025; 96365; 99284; Q9967

== ENCOUNTER → 2023-03-17 13:22 | Outpatient (CLI) | payer BC, SELFPAY ==
--- NOTE | 2023-03-17 13:27 | XR_ITS ---
FINAL REPORT CLINICAL HISTORY: rt knee pain COMPARISON: 01/30/2022 FINDINGS: Right knee Three views were obtained. There is no acute fracture or dislocation. There are moderate degenerative changes. Medial compartment narrowing is identified. There is a moderate joint effusion. IMPRESSION: Degenerative changes with a moderate joint effusion. Reviewed, Interpreted and Dictated by Thien Sherman III, MD Transcribed by Brooke Jerez Authenticated and [facility]
== END ==
LOC: RAD 13:22
PROVIDERS: PCP Family Medicine; Visit Provider Orthopaedic Surgery
DX: M25.561 Pain in right knee (principal)
CPT/HCPCS: 73562

== ENCOUNTER → 2023-04-09 09:18 | Outpatient (POV) | payer BC, SELFPAY ==
[2023-04-09 10:27] VITALS: BP 177/98; PULSE 88; RESP 20; O2SAT 96; BMI 35.6
--- NOTE | 2023-04-09 10:30 | EXP.PAIN.SOA ---
[facility] Pain Management SOAP Note Subjective:: Patient is a pleasant 47-year-old female who presents today for follow-up and medication refill. We are currently treating the patient for degenerative disc disease of cervical and lumbar spine with cervical and lumbar radiculopathy symptoms, bilateral sacroiliitis, myofascial pain, knee pain, chronic pain. Today she rates her pain a 5 out of 10. Patient denies any new trauma or injury. At our last visit she was scheduled for a cervical RFA however she states that she was unable to get to this appointment and needs to reschedule it. Patient did previously have 2 successful cervical blocks with 1 providing 90% and 1 providing 50% lasting a couple of weeks for each 1. Patient does state that she continues to have neck pain that is worse with certain movements such as bending or twisting. Patient does state the pain interferes with her ability perform activities of daily living such as cooking and cleaning. Patient is currently managed with tramadol 50 mg 3 times a day and Lyrica 150 mg twice a day along with Celebrex 200 mg daily. Patient denies any side effects from these medications. Patient is also requesting information regarding CBD products. Her Malik is [phone]. Its been reviewed and appropriate. Review of Systems: General: No recent weight changes, no fever, no sleep disturbances Respiratory: No cough, no shortness of air, no recurring pulmonary infections Cardiovascular/peripheral vascular: No chest pain, no palpitations, no edema, no shortness of breath Gastrointestinal: No new onset incontinence, normal bowel movements reported Genitourinary: No new onset incontinence Musculoskeletal: Neck pain Psychiatric: [Normal mood/affect] Neurological: [Denies weakness in extremities], [denies balance issues] Objective:: Physical Exam: General: Alert and oriented x3, no acute distress, pleasant and cooperative Lungs: Respirations even and unlabored, symmetrical chest expansion Eyes: PERRL Musculoskeletal: Flexion and extension of cervical [spine] somewhat guarded secondary to pain, [antalgic gait noted] positive Kemps test Neurological: Speech clear, no gross sensory deficit Assessment:: Degenerative disc disease of cervical and lumbar spine with cervical and lumbar radiculopathy symptoms, bilateral sacroiliitis, myofascial pain, knee pain, chronic pain, cervical facet arthropathy Plan:: Patient continues to experience significant pain in her neck with limited range of motion. I have reviewed over the risk and benefits of the cervical RFA and she would like to proceed forward with this plan of care. Patient has had 2 different successful cervical medial branch blocks providing 50 to 90% relief. Patient is not on any blood thinners. I will also refill the patient's tramadol 50 mg 3 times a day, Lyrica 150 mg twice a day and Celebrex 200 mg daily and provide a 1 month supply of these medications. I have also discussed with the patient regarding the CBD products and have counseled her to contact our [place] office to review over the product types and if she would like to proceed forward with trying 1 of these. Patient will be scheduled for a cervical RFA C3-C4 and C4-C5. Patient has been instructed to contact the clinic with any concerns before the next appointment. Dr. Lopez has reviewed this note and agrees with this plan of care. This note was dictated using voice recognition software and make contain errors or omissions. [facility] Disclaimer: The information contained in this section may have been updated after the patient was seen, as this information can be updated by other users. Medical History Allergic rhinitis KEVIN positive Anemia Arthritis Asthma Depression Dyspnea on exertion Fibromyalgia GERD (gastroesophageal reflux disease) Stopped smoking with greater than 20 pack year history Surgical History H/O arthroscopic knee surgery
== END | disposition home or self-care (01) ==
PROVIDERS: PCP Family Medicine; Visit Provider Nurse Practitioner Family
DX: M50.10 Cervical disc disorder with radiculopathy, unspecified cervical region (principal); M51.16 Intervertebral disc disorders with radiculopathy, lumbar region; M46.1 Sacroiliitis, not elsewhere classified; M79.10 Myalgia, unspecified site; M25.569 Pain in unspecified knee; G89.29 Other chronic pain; M47.22 Other spondylosis with radiculopathy, cervical region
CPT/HCPCS: 99212; G0463

== ENCOUNTER 2023-04-28 09:51 | Day surgery (SDC) | payer BC, SELFPAY ==
[2023-04-28 09:57] VITALS: BP 154/97; PULSE 72; RESP 20; TEMP 36.7; O2SAT 99; BMI 34.7
[2023-04-28 10:19] VITALS: BP 160/107; PULSE 74; RESP 18; O2SAT 97
[2023-04-28 10:20] VITALS: BP 160/107; PULSE 79; RESP 18; O2SAT 97
--- NOTE | 2023-04-28 10:28 | EXP.PAIN.PRO ---
Procedure Date: 04/28/23 Time: 10:00 Anesthesiologist:: Karsten Payton CRNA Complications:: None Pre-procedure Diagnosis:: Degenerative disc cervical spine multilevels. Cervical radiculopathy. Cervical facet arthropathy. Cervical spondylosis. Post-procedure Diagnosis:: Same. Indications for Procedure:: Patient is a very pleasant 47-year-old female that comes our clinic today for right cervical radiofrequency ablation C5-6, C6-7. Patient complains of posterior cervical neck pain bilaterally. Right arm radicular symptoms. Some left arm radicular symptoms at times. However right greater than left. Patient has difficulty with flexion, extension, left and right rotation of the cervical spine. She rates her pain 7/10. Procedure Details:: Informed consent was obtained and the risk and benefits of the procedure was explained to the patient. Patient was placed prone on the procedure table. The patient was prepped and draped in sterile fashion. C-arm fluoroscopy was used to view the cervical spine. The skin and subcutaneous tissues were anesthetized using lidocaine. I placed 20-gauge RF needles into the facet joints of C5- C6 and C6-C7 levels on the right side. We underwent sensory stimulation. There is good sensory stimulation at 0.8 V. We underwent motor stimulation. There is no motor stimulation at 2.5 V. We then anesthetized these levels with lidocaine and Depo-Medrol. I used a total of 40 mg Depo-Medrol for both levels. I then burned both levels of C5-C6 and C6-C7 facet joint/medial branches on the right side for 2 minutes at 60 ?C. Patient tolerated the procedure well with no complication. Plan and Disposition:: Patient was discharged without incident.
[2023-04-28 10:43] VITALS: BP 150/95; PULSE 70
== END 2023-04-28 10:27 | disposition home or self-care (01) ==
PROVIDERS: PCP Family Medicine; Visit Provider Nurse Anesthetist, Certified Registered
DX: M50.10 Cervical disc disorder with radiculopathy, unspecified cervical region (principal); M47.22 Other spondylosis with radiculopathy, cervical region
CPT/HCPCS: 64633; 64634; J1040; Q9966

== ENCOUNTER 2023-05-12 11:08 | Day surgery (SDC) | payer BC, SELFPAY ==
[2023-05-12 11:24] VITALS: BP 158/114; PULSE 75; RESP 18; TEMP 36.3; O2SAT 98; BMI 34.7
[2023-05-12 11:34] VITALS: BP 159/100; PULSE 71; RESP 19; O2SAT 98
[2023-05-12 11:36] VITALS: BP 159/100; PULSE 71; RESP 19; O2SAT 98
[2023-05-12 11:44] VITALS: BP 146/90; PULSE 70; RESP 18; O2SAT 98
--- NOTE | 2023-05-12 11:45 | EXP.PAIN.PRO ---
Procedure Date: 05/12/23 Time: 11:30 Anesthesiologist:: Karsten Payton CRNA Complications:: None Pre-procedure Diagnosis:: Degenerative disc cervical spine multilevels. Cervical radiculopathy. Multilevel cervical arthropathy. Cervical spondylosis. Post-procedure Diagnosis:: Same. Indications for Procedure:: Patient is a very pleasant 47-year-old female comes our clinic today for a left C5-6, C6-7 radiofrequency ablation. Patient has had significant improvement terms of her overall right cervical neck pain as well as cervical radicular symptoms following right C5-6, C6-7 ablation. Today she rates her pain 6/10. Procedure Details:: Informed consent was obtained and the risk and benefits of the procedure was explained to the patient. Patient was placed prone on the procedure table. The patient was prepped and draped in sterile fashion. C-arm fluoroscopy was used to view the lumbar spine. The skin and subcutaneous tissues were anesthetized using lidocaine. I placed 20-gauge RF needles into the facet joints of C5- C6 and C6-C7 levels on the left side. We underwent sensory stimulation. There is good sensory stimulation at 0.8 V. We underwent motor stimulation. There is no motor stimulation at 2.5 V. We then anesthetized these levels with lidocaine and Depo-Medrol. I used a total of 40 mg Depo-Medrol for both levels. I then burned both levels of C5-C6 and C6-C7 facet joint/medial branches on the left side for 4 minutes at 80 ?C. Patient tolerated the procedure well with no complication. Plan and Disposition:: Patient was discharged without incident.
== END 2023-05-12 11:44 | disposition home or self-care (01) ==
PROVIDERS: PCP Family Medicine; Visit Provider Nurse Anesthetist, Certified Registered
DX: M50.122 Cervical disc disorder at C5-C6 level with radiculopathy (principal); M50.123 Cervical disc disorder at C6-C7 level with radiculopathy; M47.22 Other spondylosis with radiculopathy, cervical region
CPT/HCPCS: 64633; 64634; J1040

== ENCOUNTER → 2023-06-08 11:34 | Outpatient (POV) | payer BC, SELFPAY ==
--- NOTE | 2023-06-08 11:53 | A.OFFVIS_ITS ---
[facility] Pain Management SOAP Note Subjective:: Patient is a pleasant 47-year-old female who presents today for medication refill and follow-up. We are currently treating the patient for degenerative disc disease of cervical and lumbar spine with cervical and lumbar radiculopathy symptoms, bilateral sacroiliitis, myofascial pain, knee pain, chronic pain syndrome. Today she rates her pain a 5 out of 10. Patient denies any new trauma or injury. Patient is currently managed with tramadol 50 mg 3 times a day, Lyrica 150 mg twice a day and Celebrex 200 mg daily. Patient does state the medications do help however she states she is having worsening nerve pain. Her Malik has been reviewed and is appropriate. Review of Systems: General: No recent weight changes, no fever, no sleep disturbances Respiratory: No cough, no shortness of air, no recurring pulmonary infections Cardiovascular/peripheral vascular: No chest pain, no palpitations, no edema, no shortness of breath Gastrointestinal: No new onset incontinence, normal bowel movements reported Genitourinary: No new onset incontinence Musculoskeletal: Low back pain, leg pain Psychiatric: [Normal mood/affect] Neurological: [Denies weakness in extremities], [denies balance issues] Objective:: Physical Exam: General: Alert and oriented x3, no acute distress, pleasant and cooperative Lungs: Respirations even and unlabored, symmetrical chest expansion Eyes: PERRL Musculoskeletal: Flexion and extension of lumbar [spine] somewhat guarded secondary to pain, [antalgic gait noted] Neurological: Speech clear, no gross sensory deficit Assessment:: Degenerative disc disease of cervical and lumbar spine with cervical and lumbar radiculopathy symptoms, bilateral sacroiliitis, myofascial pain, knee pain, chronic pain syndrome Plan:: I will refill the patient's tramadol 50 mg 3 times a day, Celebrex 200 mg daily and increasing her Lyrica to 200 mg twice a day. Patient will be given a 2- month supply of these medications. Patient will return to clinic in 2 months for reevaluation of symptoms and plan of care. Patient has been advised of risks of oversedation with the prescribed medication. Narcan has been offered to the patient in the event of oversedation. Patient has been advised that a family member should also be educated regarding administration of Narcan. Patient has been instructed to contact the clinic with any concerns before the next appointment. Dr. Lopez has reviewed this note and agrees with this plan of care. This note was dictated using voice recognition software and make contain errors or omissions. [facility] Disclaimer: The information contained in this section may have been updated after the patient was seen, as this information can be updated by other users. Medical History Allergic rhinitis KEVIN positive Anemia Arthritis Asthma Depression Dyspnea on exertion Fibromyalgia GERD (gastroesophageal reflux disease) Stopped smoking with greater than 20 pack year history Surgical History H/O arthroscopic knee surgery History of tubal ligation Family History Other No significant family history Social History Smoking Status: Never smoker alcohol intake: never substance use type: denies use current occupational status: employed Travel in the last 8 weeks: None household members: spouse housing: house current occupational exposures/hazards: No caffeine: Yes
[2023-06-08 13:52] VITALS: BP 149/96; PULSE 72; RESP 18; O2SAT 98; BMI 35.6
== END | disposition home or self-care (01) ==
PROVIDERS: PCP Family Medicine; Visit Provider Nurse Practitioner Family
DX: M50.10 Cervical disc disorder with radiculopathy, unspecified cervical region (principal); M51.16 Intervertebral disc disorders with radiculopathy, lumbar region; M46.1 Sacroiliitis, not elsewhere classified; M79.10 Myalgia, unspecified site; M25.569 Pain in unspecified knee; G89.4 Chronic pain syndrome
CPT/HCPCS: 99212; G0463

== ENCOUNTER → 2023-08-03 13:32 | Outpatient (POV) | payer BC, SELFPAY ==
--- NOTE | 2023-08-03 13:41 | A.OFFVIS_ITS ---
[facility] Pain Management SOAP Note Subjective:: Patient is a pleasant 47-year-old female who presents today for medication refill and follow-up. We are currently treating the patient for degenerative disc disease of cervical and lumbar spine with cervical and lumbar radiculopathy symptoms, bilateral sacroiliitis, myofascial pain, knee pain, chronic pain syndrome. Today she rates her pain a 8 out of 10. Patient denies any new trauma or injury. She states she feels like her neck and upper extremity pain continues to worsen on a daily basis. She states that she has worsening pain with certain positions and constantly has numbness and tingling into her arms and hands. Patient also states that she has 1 finger on her right hand that seems to possibly have more arthritis in it or something going on compared to her left. Patient denies any imaging. Patient has previously been to Dr. Cortez for neurosurgery consult however due to the extent of multilevel stenosis in her cervical spine he stated that he would have to fuse multiple levels which would severely limit her range of motion and he was not recommending surgical interve ntion. Patient does also states she continues to have pain in multiple joints however has had her labs drawn on multiple occasions to rule out possible RA or lupus. Patient is currently managed with tramadol 50 mg 3 times a day, Lyrica 200 mg twice a day and Celebrex 200 mg daily. She denies any side effects from this medication. Her Malik is [phone]. It has been reviewed and is appropriate. Review of Systems: General: No recent weight changes, no fever, no sleep disturbances Respiratory: No cough, no shortness of air, no recurring pulmonary infections Cardiovascular/peripheral vascular: No chest pain, no palpitations, no edema, no shortness of breath Gastrointestinal: No new onset incontinence, normal bowel movements reported Genitourinary: No new onset incontinence Musculoskeletal: Low back pain, leg pain Psychiatric: [Normal mood/affect] Neurological: [Denies weakness in extremities], [denies balance issues] Objective:: Physical Exam: General: Alert and oriented x3, no acute distress, pleasant and cooperative Lungs: Respirations even and unlabored, symmetrical chest expansion Eyes: PERRL Musculoskeletal: Flexion and extension of lumbar [spine] somewhat guarded secondary to pain, [antalgic gait noted] Neurological: Speech clear, no gross sensory deficit FINDINGS: Multiplanar MR imaging of the cervical spine was performed without contrast. On the sagittal T2-weighted images, disc degeneration is seen throughout. There is mild kyphosis centered at C4. There is no evidence of fracture. The vertebral alignment is normal. The cervical spinal cord has an unremarkable appearance without evidence of mass, edema or syrinx. No significant canal stenosis is identified. The cervicomedullary junction is normal. C2-3: There is no significant canal stenosis or neural foraminal narrowing. C3-4: An annular disc bulge is present with bilateral uncovertebral osteophytes. There is a right foraminal disc protrusion with severe right and moderate left neural foraminal narrowing. C4-5: A disc osteophyte complex is present with severe bilateral neural foraminal narrowing. C5-6: A disc osteophyte complex is present with severe bilateral neural foraminal narrowing. C6-7: A disc osteophyte complex is present with moderate bilateral neural foraminal narrowing. C7-T1: An annular disc bulge is present. IMPRESSION: Disc degeneration throughout with spondylosis and multilevel, moderate to severe, neural foraminal narrowing and a disc protrusion at C3-4. Overall stable from the prior exam. Reviewed, Interpreted and Dictated by Thien Sherman III, MD Transcribed by Verona Mcbride Authenticated and [facility] Assessment:: Degenerative disc disease of cervical and lumbar spine with cervical and lumbar radiculopathy symptoms, bilateral sacroiliitis, myofascial pain, knee pain, chronic pain syndrome Plan:: Patient is doing well with her current medication regimen. I will refill her tramadol 50 mg 3 times a day, Lyrica 200 mg twice a day and Celebrex 200 mg daily and provide a 2-month supply of this medication. I have discussed with the patient due to her continued pain that affects her neck and upper extremities I do believe she would be a beneficial candidate of a spinal cord stimulator trial. Risk and benefits and educational handouts were given during today's visit. Patient does states she would like to proceed forward with this plan of care. I will order a psychological evaluation and if she is deemed an appropriate candidate for the device we will proceed forward with the SCS trial in the future. I will also order x-ray of her bilateral hands due to her worsening pain on her right side. Patient will return to clinic in 1 months for reevaluation of symptoms and plan of care. Patient has been advised of risks of oversedation with the prescribed medication. Narcan has been offered to the patient in the event of oversedation. Patient has been advised that a family member should also be educated regarding administration of Narcan. Patient has been instructed to contact the clinic with any concerns before the next appointment. Dr. Lopez has reviewed this note and agrees with this plan of care. This note was dictated using voice recognition software and make contain errors or omissions. [facility] Disclaimer: The information contained in this section may have been updated after the patient was seen, as this information can be updated by other users. Medical History Allergic rhinitis KEVIN positive Anemia Arthritis Asthma Depression Dyspnea on exertion Fibromyalgia GERD (gastroesophageal reflux disease) Stopped smoking with greater than 20 pack year history Surgical History H/O arthroscopic knee surgery History of tubal ligation Family History Other No significant family history Social History Smoking Status: Never smoker alcohol intake: never substance use type: denies use current occupational status: employed Travel in the last 8 weeks: None household members: spouse housing: house current occupational exposures/hazards: No caffeine: Yes
[2023-08-03 15:16] VITALS: BP 167/96; PULSE 76; RESP 18; O2SAT 100; BMI 35.6
== END | disposition home or self-care (01) ==
PROVIDERS: PCP Family Medicine; Visit Provider Nurse Practitioner Family
DX: M51.16 Intervertebral disc disorders with radiculopathy, lumbar region; M46.1 Sacroiliitis, not elsewhere classified; M79.10 Myalgia, unspecified site; M25.569 Pain in unspecified knee; G89.4 Chronic pain syndrome; M50.11 Cervical disc disorder with radiculopathy, high cervical region
CPT/HCPCS: 99212; G0463

== ENCOUNTER 2023-08-03 14:10 | Outpatient (CLI) | payer BC, SELFPAY ==
--- NOTE | 2023-08-03 | XR_ITS ---
FINAL REPORT CLINICAL HISTORY: hand pain COMPARISON: None FINDINGS: RIGHT HAND: 3 views of the right hand were obtained. There is no acute fracture or dislocation. Visualized joint spaces are normally aligned. Soft tissues are unremarkable. IMPRESSION: No acute bony abnormality. Reviewed, Interpreted and Dictated by Miguel Cabello MD Transcribed by Ayanna Loco Authenticated and . [facility]
--- NOTE | 2023-08-03 14:19 | XR_ITS ---
FINAL REPORT CLINICAL HISTORY: RT HAND PAIN COMPARISON: None FINDINGS: RIGHT HAND Three views demonstrate no acute fracture or dislocation. The visualized joint spaces are normally aligned. The soft tissues are unremarkable. IMPRESSION: No acute bony abnormality. Reviewed, Interpreted and Dictated by Miguel Cabello MD Transcribed by Jasmyn Leyva Authenticated and [facility]
== END 2023-08-03 23:59 ==
LOC: RAD 14:10
PROVIDERS: PCP Family Medicine; Visit Provider Nurse Practitioner Family
DX: M79.641 Pain in right hand (principal)
CPT/HCPCS: 73130

== ENCOUNTER 2023-12-30 13:57 | Outpatient (POV) | payer BC, SELFPAY ==
[2023-12-30 14:16] VITALS: BP 132/88; PULSE 88; RESP 18; O2SAT 97; BMI 34.9
--- NOTE | 2023-12-30 14:30 | EXP.PAIN.SOA ---
[facility] Pain Management SOAP Note Subjective:: Patient is a pleasant 48-year-old female who presents today for medication refill and follow-up. Today she rates her pain a 4 out of 10 however states the pain will increase much higher to a 6 out of 10 or more. Patient states that she is having increased pain in her neck with radiating numbness and tingling into her bilateral arms. Patient denies any new trauma or injury. She does also state that she has experienced a little bit more pain in her low back and hips. Patient does state that the chronic aching, throbbing sensation with numbness and tingling in her arms is more bothersome than her low back symptoms. Patient does state the pain interferes with her ability to perform activities of daily living such as cooking and cleaning. Patient is currently managed with tramadol 50 mg 3 times a day, Lyrica 200 mg twice a day and Celebrex 200 mg daily. She denies any side effects from this medication. She does states that she really relies on this medication and she recently ran out and had tremendous amounts of pain. Patient does state that she is still planning on moving to [place] before the end of this year and is asking whether or not we have any recommendations for any pain doctors in that location. Her Malik has been reviewed and is appropriate. Review of Systems: General: No recent weight changes, no fever, no sleep disturbances Respiratory: No cough, no shortness of air, no recurring pulmonary infections Cardiovascular/peripheral vascular: No chest pain, no palpitations, no edema, no shortness of breath Gastrointestinal: No new onset incontinence, normal bowel movements reported Genitourinary: No new onset incontinence Musculoskeletal: Neck pain, bilateral arm pain Psychiatric: [Normal mood/affect] Neurological: [Denies weakness in extremities], [denies balance issues] Objective:: Physical Exam: General: Alert and oriented x3, no acute distress, pleasant and cooperative Lungs: Respirations even and unlabored, symmetrical chest expansion Eyes: PERRL Musculoskeletal: Flexion and extension of cervical [spine] somewhat guarded secondary to pain, [antalgic gait noted] positive Spurling's test Neurological: Speech clear, no gross sensory deficit Assessment:: Degenerative disc disease of cervical and lumbar spine with cervical and lumbar radiculopathy symptoms, bilateral sacroiliitis, myofascial pain, knee pain, chronic pain syndrome Plan:: Patient is experiencing significant pain in herNeck with radiating symptoms into her bilateral upper extremities with numbness and tingling. Patient did have limited range of motion of her cervical spine with a positive Spurling's test. I have discussed with the patient that she may benefit from cervical epidural steroid injection. Patient has had these in the past with at least 50% improvement lasting at least 3 months. Patient's last cervical epidural steroid injection was in October 2022. JANIS C6-C7 under fluoroscopy. Risk and benefits were discussed with the patient and she would like to proceed forward with this plan of care. I did also discussed with patient in future we may look at doing possible SI injections for her low back pain however we will follow-up with this at future visits. I will supply her a 3-month supply of her tramadol, Lyrica and Celebrex. Patient will be scheduled for JANIS C6-C7 under fluoroscopy. Patient has been instructed to contact the clinic with any concerns before the next appointment. Dr. Lopez has reviewed this note and agrees with this plan of care. This note was dictated using voice recognition software and make contain errors or omissions. [facility] Disclaimer: The information contained in this section may have been updated after the patient was seen, as this information can be updated by other users. Medical History (Updated 11/16/23 @ 11:18 by Joyce Gil [facility]) Chronic post-traumatic stress disorder (PTSD) MDD (major depressive disorder), recurrent episode, moderate Generalized anxiety disorder with panic attacks KEVIN positive Allergic rhinitis Stopped smoking with greater than 20 pack year history Dyspnea on exertion Asthma Anemia Fibromyalgia Arthritis GERD (gastroesophageal reflux disease) Depression Surgical History History of tubal ligation H/O arthroscopic knee surgery Family History Other No significant family history Social History Smoking Status: Never smoker alcohol intake: current alcohol intake frequency: holidays/special occasions only substance use type: denies use current occupational status: employed Travel in the last 8 weeks: None household members: spouse housing: house number of children: 2 current occupational exposures/hazards: No caffeine: Yes
== END 2023-12-30 23:59 | disposition home or self-care (01) ==
PROVIDERS: PCP Family Medicine; Visit Provider Nurse Practitioner Family
DX: M50.123 Cervical disc disorder at C6-C7 level with radiculopathy (principal); M51.16 Intervertebral disc disorders with radiculopathy, lumbar region; M46.1 Sacroiliitis, not elsewhere classified; M79.10 Myalgia, unspecified site; M25.569 Pain in unspecified knee; G89.4 Chronic pain syndrome
CPT/HCPCS: 99212; G0463

== ENCOUNTER 2024-04-06 13:55 | Outpatient (POV) | payer BC, SELFPAY ==
--- NOTE | 2024-04-06 14:22 | A.OFFVIS_ITS ---
[facility] Disclaimer: The information contained in this section may have been updated after the patient was seen, as this information can be updated by other users. Medical History (Updated 04/06/24 @ 14:30 by Melissa Stuart APRN) Chronic post-traumatic stress disorder (PTSD) MDD (major depressive disorder), recurrent episode, moderate Generalized anxiety disorder with panic attacks KEVIN positive Allergic rhinitis Stopped smoking with greater than 20 pack year history Dyspnea on exertion Asthma Anemia Fibromyalgia Arthritis GERD (gastroesophageal reflux disease) Depression Surgical History History of tubal ligation H/O arthroscopic knee surgery Family History Other No significant family history Social History Smoking Status: Never smoker alcohol intake: current alcohol intake frequency: holidays/special occasions only substance use type: denies use current occupational status: employed Travel in the last 8 weeks: None household members: spouse housing: house number of children: 2 current occupational exposures/hazards: No caffeine: Yes PM Subjective & Objective Subjective Subjective:: Patient is a pleasant 48-year-old female who presents today for medication refill and worsening neck and arm pain. Today she rates her pain a 5 out of 10. Patient states that the pain is still all throughout her neck with tension going into her shoulders and she does continue to have numbness and tingling down into both her arms. She states the pain is constant and does interfere with her ability perform activities of daily living. Patient does state that she is still moving to [place] and that she did give her official 2-week notice at work earlier this week. She does state that her last day is April 15 and she would like to see about getting an injection before she leaves. Patient is also managed with tramadol 50 mg 3 times a day, Lyrica 200 mg twice a day and Celebrex 200 mg daily. She denies any side effects from this medication. Her Malik has been reviewed and is appropriate. Review of Systems: General: No recent weight changes, no fever, no sleep disturbances Respiratory: No cough, no shortness of air, no recurring pulmonary infections Cardiovascular/peripheral vascular: No chest pain, no palpitations, no edema, no shortness of breath Gastrointestinal: No new onset incontinence, normal bowel movements reported Genitourinary: No new onset incontinence Musculoskeletal: Neck pain, bilateral arm numbness tingling Psychiatric: [Normal mood/affect] Neurological: [Denies weakness in extremities], [denies balance issues] Pain at rest (0-10 scale): 5 Objective Objective:: Physical Exam: General: Alert and oriented x3, no acute distress, pleasant and cooperative Lungs: Respirations even and unlabored, symmetrical chest expansion Eyes: PERRL Musculoskeletal: Flexion and extension of cervical [spine] somewhat guarded secondary to pain, positive Spurling's test Neurological: Speech clear, no gross sensory deficit Has patient had previous pain injection?: No Conservative treatment options previously tried: Home exercise plan Length of treatment: Longer than 6 weeks Meds Home Medications and Allergies Home Medications ?Medication ?Instructions ?Recorded ?Confirmed ?Type omeprazole 40 mg capsule,delayed 1 tab PO DAILY GERD 30 days #30 10/07/18 12/30/23 History release caps duloxetine 60 mg capsule,delayed 60 mg PO DAILY Fibromyalgia 03/11/21 12/30/23 History release atorvastatin 10 mg tablet 10 mg PO DAILY Cholesterol 11/14/22 12/30/23 History albuterol sulfate 90 mcg/actuation 1 puff inhalation DIRECTED 11/21/22 12/30/23 History aerosol inhaler Breathing problems budesonide-formoterol HFA 80 1 puff inhalation DIRECTED 11/21/22 12/30/23 History mcg-4.5 mcg/actuation aerosol Breathing problems inhaler (Symbicort) fluticasone propionate 50 1 - 2 spray intranasal DAILY 12/31/22 12/30/23 History mcg/actuation nasal ALLERGIES spray,suspension (Flonase Allergy Relief) diclofenac sodium 50 mg 50 mg PO BID . 01/20/23 12/30/23 History tablet,delayed release tizanidine 4 mg tablet (Zanaflex) 4 mg PO HS . #30 tabs 02/04/23 12/30/23 Rx celecoxib 200 mg capsule (Celebrex) 200 mg PO DAILY #30 caps 12/30/23 Rx pregabalin 200 mg capsule 200 mg PO BID #60 caps 12/30/23 Rx tramadol 50 mg tablet 50 mg PO TID Pain #90 tabs 12/30/23 Rx New Prescriptions to Start Prescriptions: Allergies Allergy/AdvReac Type Severity Reaction Status Date / Time ibuprofen Allergy Verified 05/12/23 11:28 promethazine [From Phenergan] Allergy Verified 05/12/23 11:28 Assessment and Plan *Assessment and plan (1) Degenerative joint disease of cervical spine: Status: Chronic Qualifiers: Spinal osteoarthritis complication: with radiculopathy Qualified Code(s): M47.22 - Other spondylosis with radiculopathy, cervical region Category: Medical Code(s): M47.812 - Spondylosis without myelopathy or radiculopathy, cervical region (2) Cervical radiculopathy: Status: Acute Category: Medical Code(s): M54.12 - Radiculopathy, cervical region Plan Patient is experiencing worsening pain throughout her neck with numbness and tingling into her upper extremities. She did have limited range of motion and a positive Spurling's test. I did discuss with the patient that she may benefit from a cervical epidural steroid injection. Patient has had imaging in the past that did show multilevel degenerative disc with narrowing most prominent at the C5-C6 level. Risk and benefits of this injection were explained to the patient and she would like to proceed forward with this plan of care. Patient has had cervical epidurals in the past that did provide on average at least 50% improvement and lasted at least 3 months. Her last cervical injection was October 2022. Patient has tried and failed conservative therapy including continued at home stretching exercise for longer than 6 weeks. I will also send in a 90-day supply of her Lyrica, tramadol and Celebrex. Patient does state that she already has a job lined up in [place] and that she is doing urine drug screen and other labs for the [employer] today. Patient is requesting if there is someth ing we can put in writing stating that she is prescribed tramadol in case it shows. I have counseled her that she can get a printout of this note to send to her future employer to show documentation that she is legally prescribed this medication. I have counseled her that when she moves to [place] she will have to establish care with a different provider to continue to get these medications. Patient acknowledges understanding agrees with plan of care. Patient was also counseled that we will try and get her in for her cervical epidural at the [place] location next week. Patient is not on any blood thinners. Patient will be scheduled for a JANIS C5-C6 under fluoroscopy. Risks and benefits of the medication have been explained in detail to the patient. The patient does understand the risk of dependence on the medication when given over a prolonged period. Patient has been advised of risks of oversedation with the prescribed medication. Narcan has been offered to the paitent in the event of oversedation. Patient has been advised that a family member should also be educated regarding administration of Narcan. The patient has been advised to consult with his/her primary care provider and pharmacist regarding drug-drug interaction of medications currently prescribed. Patient has been prescribed a controlled substance after being counseled on the medication, medication safety, and possible side effects. Opioid contract was reviewed and signed by the patient, and that they have agreed to all of the terms set forth by our compliance program. Patient has been instructed to contact the clinic with any concerns before the next appointment. Dr. Lopez has reviewed this note and agrees with this plan of care. This note was dictated using voice recognition software and make contain errors or omissions.
[2024-04-06 14:45] VITALS: BP 129/75; PULSE 75; RESP 18; O2SAT 99; BMI 34.5
== END 2024-04-06 23:59 | disposition home or self-care (01) ==
PROVIDERS: PCP Family Medicine; Visit Provider Nurse Practitioner Family
DX: M47.22 Other spondylosis with radiculopathy, cervical region (principal); Z73.89 Other problems related to life management difficulty
CPT/HCPCS: 99212; G0463